=== PATIENT | female | born 1990 | race Caucasian/White ===

== ENCOUNTER → 2018-12-21 17:03 | Outpatient (CLI) | payer OTHER, SELFPAY ==
[2018-12-21 19:05] LABS: Chlamydia Trachomatis by PCR Negative (Negative); Neisserai gonorrhoeae by PCR Negative (Negative); Probe Check PASS; Sample Adequacy Control PASS; Specimen Processing Control PASS
== END ==
PROVIDERS: Referring Provider Advanced Practice Midwife; Visit Provider Advanced Practice Midwife
DX: Z11.3 Encounter for screening for infections with a predominantly sexual mode of transmission (principal)
CPT/HCPCS: 87491; 87591

== ENCOUNTER → 2018-12-26 14:56 | Outpatient (CLI) | payer OTHER, SELFPAY ==
[2018-12-26 16:20] LABS: hCG Titer Quant., Serum 676 mIU/mL (1-3)
== END ==
PROVIDERS: PCP Advanced Practice Midwife; Visit Provider Obstetrics & Gynecology
DX: O20.0 Threatened abortion (principal)
CPT/HCPCS: 36415; 84702

== ENCOUNTER → 2018-12-28 16:12 | Outpatient (CLI) | payer OTHER, SELFPAY ==
[2018-12-28 17:17] LABS: hCG Titer Quant., Serum 292 mIU/mL (1-3)
== END ==
PROVIDERS: PCP Advanced Practice Midwife; Visit Provider Advanced Practice Midwife
DX: O20.0 Threatened abortion (principal)
CPT/HCPCS: 36415; 84702

== ENCOUNTER → 2018-12-30 15:42 | Outpatient (CLI) | payer OTHER, SELFPAY ==
[2018-12-30 17:34] LABS: hCG Titer Quant., Serum 65 mIU/mL (1-3)
== END ==
PROVIDERS: PCP Advanced Practice Midwife; Visit Provider Obstetrics & Gynecology
DX: O20.0 Threatened abortion (principal); Z3A.00 Weeks of gestation of pregnancy not specified
CPT/HCPCS: 36415; 84702

== ENCOUNTER → 2019-08-10 | Outpatient (CLI) | payer OTHER, SELFPAY ==
[2019-08-10 13:46] LABS: Progesterone Level 3.29 ng/mL (See Comment)
== END | disposition home or self-care (01) ==
LOC: WOBLAB 09:44
PROVIDERS: Visit Provider Obstetrics & Gynecology
DX: N91.2 Amenorrhea, unspecified (principal)
CPT/HCPCS: 36415; 84144

== ENCOUNTER → 2019-09-05 | Outpatient (CLI) | payer OTHER, SELFPAY ==
[2019-09-05 16:18] LABS: Progesterone Level 18.91 ng/mL (See Comment)
[2019-09-05 17:17] LABS: Chlamydia Trachomatis by PCR Negative (Negative); Neisserai gonorrhoeae by PCR Negative (Negative); Probe Check PASS; Sample Adequacy Control PASS; Specimen Processing Control PASS
== END | disposition home or self-care (01) ==
LOC: WOBLAB 13:54
PROVIDERS: Visit Provider Obstetrics & Gynecology
DX: O20.0 Threatened abortion (principal)
CPT/HCPCS: 36415; 84144; 87491; 87591

== ENCOUNTER → 2019-09-20 | Outpatient (CLI) | payer OTHER, SELFPAY ==
[2019-09-20 17:31] LABS: Absolute Lymphocyte Count 1.87 X10^3/uL (0.83-4.51); Absolute Neutrophil Count 7.7 X10^3/uL (2.0-7.7); Basophil# 0.04 X10^3/uL; Basophil% 0.4 % (0-1); Eosinophil# 0.04 X10^3/uL; Eosinophils% 0.4 % (0-5); Hematocrit 38.3 % (37-47); Hemoglobin 13.2 g/dL (12.0-15.0); Lymphocyte # 1.87 X10^3/ul (4.0); Lymphocyte % 17.9 % (19-41); Mean Corp Hgb Conc 34.5 g/dL (32-36); Mean Corpuscular Hgb 30.3 pg (27.0-32.0); Mean Platelet Vol. 10.7 fl (6.2-12.0); Monocyte# 0.76 X10^3/uL; Monocyte% 7.3 % (0-10); NRBC Flagged by Analyzer 0 % (0-5); Neutrophil % 73.7 % (47-70); Platelet Count 273 K/mm3 (150-450); RBC Distribution Width CV 11.6 % (11.6-14.6); RBC Distribution Width SD 37.3 fl (35.1-43.9); Red Blood Count 4.35 M/mm3 (4.2-5.4); White Blood Count 10.4 K/mm3 (4.4-11.0)
[2019-09-20 17:49] LABS: Color, Urine Yellow (Yellow); Glucose, Dipstick Normal (Normal); Ketone-Dipstick Negative (Negative); Leukocyte Esterase-Dipstick Negative /ul (Negative); Nitrite-Dipstick Negative (Negative); Occult Blood-Urine Negative /ul (Negative); Protein-Dipstick Negative (Negative); Specific Gravity, Urine 1.005 (1.002-1.030); Urine Bilirubin Dipstick Negative (Negative); Urine Clarity Clear (Clear); Urine Urobilinogen Normal (Normal)
[2019-09-20 18:07] LABS: Thyroid Stim Hormone (TSH) 1.56 uIU/mL (0.358-3.74)
[2019-09-20 18:11] LABS: Amphetamine Urine VISTA NEGATIVE (<1000 ng/mL); Barbiturate Urine VISTA NEGATIVE (< 200 ng/mL); Benzodiazepine Urine VISTA NEGATIVE (< 200 ng/mL); Cocaine Urine VISTA NEGATIVE (< 300 ng/mL); Ecstacy Urine VISTA NEGATIVE (< 500 ng/mL); Methadone Urine VISTA NEGATIVE (< 300 ng/mL); PCP Urine VISTA NEGATIVE (< 25 ng/mL); THC Urine VISTA NEGATIVE (< 50 ng/mL); Vista UDS pH Range 6
[2019-09-21 08:58] LABS: HIV - WCH Non-Reactive (Nonreactive); Hepatitis B Surface Antigen Non-Reactive (Nonreactive); Hepatitis C Antibody Non-Reactive (Nonreactive); Rubella IgG 434.6 IU/mL
[2019-09-21 11:06] LABS: Prenatal RPR NONREACTIVE (NONREACTIVE)
== END | disposition home or self-care (01) ==
LOC: WOBLAB 15:34
PROVIDERS: Visit Provider Obstetrics & Gynecology
DX: Z34.81 Encounter for supervision of other normal pregnancy, first trimester (principal)
CPT/HCPCS: 36415; 80307; 81002; 84443; 85025; 86703; 86762; 86803; 87340

== ENCOUNTER → 2020-01-09 16:10 | Outpatient (CLI) | payer OTHER, SELFPAY ==
[2020-01-09 17:35] LABS: Hematocrit 39.6 % (37-47); Hemoglobin 12.9 g/dL (12.0-15.0); Mean Corp Hgb Conc 32.6 g/dL (32-36); Mean Corpuscular Volume 92.1 fL (81-99); Mean Platelet Vol. 10.6 fl (6.2-12.0); Platelet Count 240 K/mm3 (150-450); RBC Distribution Width CV 12.5 % (11.6-14.6); RBC Distribution Width SD 42.6 fl (35.1-43.9); White Blood Count 10.6 K/mm3 (4.4-11.0)
[2020-01-09 17:43] LABS: Glucose Challenge Gest 1H 50g 153 mg/dL (70-140)
== END ==
PROVIDERS: Visit Provider Obstetrics & Gynecology
DX: Z34.82 Encounter for supervision of other normal pregnancy, second trimester (principal)
CPT/HCPCS: 36415; 82950; 85027

== ENCOUNTER → 2020-01-15 09:27 | Outpatient (CLI) | payer OTHER, SELFPAY ==
[2020-01-15 11:23] LABS: Glucose GTT-Gestation. Fasting 65 mg/dL (<105)
[2020-01-15 11:52] LABS: Glucose GTT-Gestational 1 Hr 192 mg/dL (<190)
[2020-01-15 14:23] LABS: Glucose GTT-Gestational 2 Hr 175 mg/dL (<165)
[2020-01-15 14:34] LABS: Glucose GTT-Gestational 3 Hr 126 L (<145)
== END ==
PROVIDERS: Referring Provider Student in an Organized Health Care Education/Training Program; Visit Provider Student in an Organized Health Care Education/Training Program
DX: Z34.82 Encounter for supervision of other normal pregnancy, second trimester (principal)
CPT/HCPCS: 36415; 82951; 82952

== ENCOUNTER 2020-01-30 09:30 | Outpatient (RCR) | payer OTHER, SELFPAY | END 2020-02-08 23:59 | LOC: DC 09:30 | PROVIDERS: Visit Provider Student in an Organized Health Care Education/Training Program | DX: Z71.3 Dietary counseling and surveillance (principal); O24.419 Gestational diabetes mellitus in pregnancy, unspecified control; Z3A.00 Weeks of gestation of pregnancy not specified | CPT/HCPCS: 97802; G0108 ==

== ENCOUNTER 2020-02-12 11:54 | Outpatient (RCR) | payer OTHER, SELFPAY | END 2020-02-12 23:59 | disposition home or self-care (01) | LOC: DC 11:54 | PROVIDERS: Visit Provider Student in an Organized Health Care Education/Training Program | DX: O24.419 Gestational diabetes mellitus in pregnancy, unspecified control (principal); Z3A.00 Weeks of gestation of pregnancy not specified ==

== ENCOUNTER → 2020-04-02 | Outpatient (CLI) | payer OTHER, SELFPAY | END | disposition home or self-care (01) | LOC: LABSPEC 10:31 | PROVIDERS: Visit Provider Obstetrics & Gynecology | DX: Z36.85 Encounter for antenatal screening for Streptococcus B (principal) | CPT/HCPCS: 36415; 87081 ==

== ENCOUNTER → 2020-04-19 15:38 | Outpatient (CLI) | payer OTHER, SELFPAY | PROVIDERS: Referring Provider Student in an Organized Health Care Education/Training Program; Visit Provider Student in an Organized Health Care Education/Training Program | DX: Z03.818 Encounter for observation for suspected exposure to other biological agents ruled out (principal) | CPT/HCPCS: 87635; C9803; U0002 ==

== ENCOUNTER 2020-04-20 06:15 | Inpatient (IN) | payer OTHER, SELFPAY ==
[2020-04-20] VITALS (43 sets, daily range): BP systolic 108–143; BP diastolic 59–91; PULSE 69–127; RESP 16; TEMP 36.1–37.4; O2SAT 98–100; BMI 25.2
--- NOTE | 2020-04-20 04:45 | PCM.PN.OB ---
Subjective: Triage Visit 29-year-old at 39 weeks / 0 days presenting with contractions that started last evening. Denies leaking of fluid, vaginal bleeding. Reports movement. Denies headache, vision changes, chest pain, shortness of breath, nausea/vomiting, diarrhea. complicated by: GDM A1 which is well controlled, growth AGA. OB history: G1 SAB, G2: current Medical history: Denies, GDM A1 Surgical history: [place] teeth extraction 2016 Social: Denies tobacco alcohol and drug use Medications: vitamin Physical exam: Vital Signs Pulse BP 04/20/20 03:48 88 133/84 H General: Comfortable, in no acute distress Cardiorespiratory: No increased effort Abdomen: Soft, nontender, gravid Extremity: No edema Cervical exam: 1 cm per nursing heart rate: 135/moderate variability/+ accelerations/no decelerations [place]: Irregular A/P: 29-year-old G2, P0 at 39 weeks presenting with contractions. Rule out labor. If patient is unchanged we will plan to discharge home. Labor precautions provided. Patient has a visit in the office early this week and induction planned for next Wednesday. All questions answered with patient and her at bedside. - Physical Exam Vitals/I&O's: Vital Signs Pulse BP 88 133/84 H 04/20/20 03:48 04/20/20 03:48 Weight: 62.596 kg Body Mass Index (BMI) 25.2
[2020-04-20] MEDS: Lactated Ringers 1,000 ML 50 ML IV (06:55)
[2020-04-20] MEDS: Lactated Ringers 500 ML 999 ML IV ×2 (07:00→14:19)
[2020-04-20 07:06] LABS: Absolute Lymphocyte Count 1.48 X10^3/uL (0.83-4.51); Absolute Neutrophil Count 10.9 X10^3/uL (2.0-7.7); Basophil# 0.03 X10^3/uL; Basophil% 0.2 % (0-1); Eosinophil# 0.01 X10^3/uL; Eosinophils% 0.1 % (0-5); Hematocrit 40.6 % (37-47); Hemoglobin 13.9 g/dL (12.0-15.0); Lymphocyte # 1.48 X10^3/ul (4.0); Lymphocyte % 11.2 % (19-41); Mean Corp Hgb Conc 34.2 g/dL (32-36); Mean Corpuscular Hgb 31.2 pg (27.0-32.0); Mean Platelet Vol. 11.2 fl (6.2-12.0); Monocyte# 0.76 X10^3/uL; Monocyte% 5.7 % (0-10); NRBC Flagged by Analyzer 0 % (0-5); Neutrophil # 10.94 X10^3/uL (2.7-7.7); Neutrophil % 82.4 % (47-70); Platelet Count 194 K/mm3 (150-450); RBC Distribution Width CV 12.5 % (11.6-14.6); RBC Distribution Width SD 41.1 fl (35.1-43.9); Red Blood Count 4.46 M/mm3 (4.2-5.4); White Blood Count 13.3 K/mm3 (4.4-11.0)
[2020-04-20 07:40] LABS: Bedside Glucose 72 mg/dL (70-110)
[2020-04-20] MEDS: fentaNYL-bupivacaine (epidural) 100 ML BAG EPIDURAL ×2 (08:06→12:42)
[2020-04-20 08:46] LABS: Bedside Glucose 66 mg/dL (70-110)
[2020-04-20] MEDS: Lactated Ringers 1,000 ML 200 ML IV ×2 (11:56→16:25)
[2020-04-20] MEDS: Oxytocin 30 units/NS 500 ml 30 UNITS/500 ML IV.SOLN IV (12:27)
[2020-04-20 12:41] LABS: Bedside Glucose 70 mg/dL (70-110)
[2020-04-20 14:36] LABS: Bedside Glucose 78 mg/dL (70-110)
[2020-04-20 15:46] LABS: Bedside Glucose 81 mg/dL (70-110)
[2020-04-20] MEDS: Oxytocin 30 units/NS 500 ml 30 UNITS/500 ML IV.SOLN 334 UNITS IV (17:05)
[2020-04-20 17:11] LABS: Bedside Glucose 92 mg/dL (70-110)
--- NOTE | 2020-04-20 17:25 | PCM.HPOB.BLA ---
History and Physical Date of Admission: 04/20/20 HPI: 29-year-old G2, P0 at 39/2 weeks, [place] 04/25/20 by lmp, admitted for labor. Reports contractions. Denies leaking of fluid, reports good movement. This is complicated by: GDM A1 well-controlled Obstetrical History G1: SAB G2: Current Past Medical History Denies Medications PNV Past Surgical History [place] tooth extraction Social History Tobacco use: Denies Alcohol use: Denies Illicit drug use: Denies Labs Blood type: O pos Rubella: neg Hep B/C: neg/neg HIV: neg RPR: nonreactive GBS: neg Allergies NKDA Review of Systems General: alert and oriented HEENT: _denies change of vision Heart/lungs: _denies CP, SOB GI: _denies nausea, vomiting, dysuria, diarrhea MSK: _denies calf pain, tenderness Physical Exam Vital Signs Temp Pulse BP Pulse Ox 04/20/20 17:20 110 H 123/72 H 04/20/20 16:24 86 134/83 H 04/20/20 16:18 102 H 100 04/20/20 15:25 98.3 F 88 135/81 H 100 04/20/20 14:06 98.8 F 123 H 138/84 H 04/20/20 13:31 83 100 04/20/20 13:30 98.3 F 78 135/91 H 04/20/20 11:58 97.8 F 81 127/64 H 100 04/20/20 11:10 98.8 F 87 134/68 H 99 04/20/20 10:06 98.8 F 117 H 114/73 99 04/20/20 09:36 101 H 126/75 H 04/20/20 09:06 95 119/69 04/20/20 08:35 82 112/59 L 04/20/20 08:30 99.0 F 75 126/64 H 04/20/20 08:27 69 134/66 H 04/20/20 08:25 79 100 04/20/20 08:21 86 119/77 04/20/20 08:20 78 99 04/20/20 08:16 83 127/72 H 04/20/20 08:15 97 98 04/20/20 08:11 89 131/76 H 04/20/20 08:10 80 98 04/20/20 08:06 90 125/73 H 04/20/20 08:05 98 04/20/20 08:02 102 H 143/78 H 04/20/20 08:00 91 98 04/20/20 07:56 107 H 131/83 H 04/20/20 07:55 99 04/20/20 07:50 90 138/81 H 99 04/20/20 07:33 82 138/76 H 04/20/20 07:30 99.3 F H 99 General: a&o x3, NAD HEENT: normocephalic, atraumatic Cardio: no JVD Resp: no increased work in breathing Abdomen: soft, gravid, nontender Extremities: _minimal-moderate edema CE: 3 cm FHT: 135/mod kim/+accel/nod ecel [place]: irregular Labs Laboratory Results - last 24 hr 04/20/20 04/20/20 04/20/20 06:55 06:55 07:29 WBC 13.3 H RBC 4.46 Hgb 13.9 Hct 40.6 MCV 91.0 MCH 31.2 MCHC 34.2 RDW Std Deviation 41.1 RDW Coeff of Kim 12.5 Plt Count 194 MPV 11.2 Immature Gran % (Auto) 0.400 Neut % (Auto) 82.4 H Lymph % (Auto) 11.2 L [place] % (Auto) 5.7 Eos % (Auto) 0.1 Baso % (Auto) 0.2 Absolute Neuts (auto) 10.9 H Absolute Lymphs (auto) 1.48 Nucleated RBC % 0 POC Glucose 72 Blood Type O POSITIVE Antibody Screen NEGATIVE 04/20/20 04/20/20 04/20/20 08:27 12:32 14:25 WBC RBC Hgb Hct MCV MCH MCHC RDW Std Deviation RDW Coeff of Kim Plt Count MPV Immature Gran % (Auto) Neut % (Auto) Lymph % (Auto) [place] % (Auto) Eos % (Auto) Baso % (Auto) Absolute Neuts (auto) Absolute Lymphs (auto) Nucleated RBC % POC Glucose 66 L 70 78 Blood Type Antibody Screen 04/20/20 04/20/20 15:29 16:46 WBC RBC Hgb Hct MCV MCH MCHC RDW Std Deviation RDW Coeff of Kim Plt Count MPV Immature Gran % (Auto) Neut % (Auto) Lymph % (Auto) [place] % (Auto) Eos % (Auto) Baso % (Auto) Absolute Neuts (auto) Absolute Lymphs (auto) Nucleated RBC % POC Glucose 81 92 Blood Type Antibody Screen Assessment & Plan 29-year-old G2, P0 at 39/2 weeks, [place] 04/25/20 by lmp, admitted for labor. This is complicated by: GDM A1 well-controlled Admit to L&D - Routine labor orders -GDM A1: Routine blood glucose orders - GBS negative - CEFM - Anesthesia to see
--- NOTE | 2020-04-20 17:31 | PCM.OPRPT ---
Vaginal Delivery Maternal Presentation: Active Labor Amniotic Membrane Rupture Type: Spontaneous Amniotic Fluid Description: Clear Final [place]: 04/25/20 Gestational age: 39 Weeks and 2 Days Date of Procedure: 04/20/20 Pre-Operative Diagnosis: Hernandez intrauterine , GDMA1 Post-Operative Diagnosis: [place] intrauterine , GDMA1 Surgery/ Procedure Performed: Spontaneous Vaginal Delivery Type of Anesthesia: Epidural Description of Procedure: Spontaneous vaginal delivery viable female. Nuchal cord x1, loose, reduced. Baby to mom. Cord clamped and cut. Spontaneous delivery of placenta. First-degree perineal laceration repaired with in usual fashion, hemostatic. Bilateral outer labial abrasions, hemostatic without intervention. EBL 300 cc. A gender: Female (1 minute): 9 (5 minute): 9
[2020-04-20 18:30] LABS: Bedside Glucose 91 mg/dL (70-110)
--- NOTE | 2020-04-20 19:29 | NURSING ---
Epidural catheter removed. Blue tip intact.
[2020-04-20] MEDS: 0.9% Saline Lock 10 ML Syringe IV (20:30)
[2020-04-20] MEDS: Ibuprofen 600 MG Tablet PO (21:21)
[2020-04-21] MEDS: Acetaminophen 500 MG Tablet 1000 MG PO ×2 (00:06→10:55)
[2020-04-21 04:20] VITALS: BP 107/68; PULSE 70; RESP 18; TEMP 36.3
[2020-04-21] MEDS: Ibuprofen 600 MG Tablet PO ×3 (05:51→20:00)
[2020-04-21 06:00] LABS: Bedside Glucose 70 mg/dL (70-110)
[2020-04-21 07:45] VITALS: BP 117/71; PULSE 81; RESP 14; TEMP 36.2; O2SAT 97
--- NOTE | 2020-04-21 10:32 | PCM.PN.OB ---
Subjective: PPD1 Feeling well. Lochia minimal. . - Physical Exam Vitals/I&O's: Vital Signs Temp Pulse Resp BP Pulse Ox 97.2 F L 81 14 117/71 97 04/21/20 07:45 04/21/20 07:45 04/21/20 07:45 04/21/20 07:45 04/21/20 07:45 Oxygen Delivery Method Room Air Weight: 62.596 kg Body Mass Index (BMI) 25.2 Intake and Output for Last 24 Hours 04/19/20 04/20/20 04/22/20 23:59 23:59 00:59 Intake Total 4433.07 / 4433.07 Output Total 1300 / 1300 700 / 700 Balance 3133.07 / 3133.07 -700 / -700 General: Alert, Oriented x3, No apparent distress HEENT: Atraumatic, Normocephalic Neck: Supple Lungs: Normal air movement Cardiovascular: Regular rate Abdomen: Soft - uterus 2 cm below umbilicus Extremities: No edema Neurological: Cranial nerves II-XII grossly intact Psych/Mental Status: Normal Affect, Appropriate Laboratory Results 04/20/20 12:32: POC Glucose 70 04/20/20 14:25: POC Glucose 78 04/20/20 15:29: POC Glucose 81 04/20/20 16:46: POC Glucose 92 04/20/20 18:17: POC Glucose 91 04/21/20 05:56: POC Glucose 70 Current Medications Acetaminophen (Acetaminophen 500 Mg Tablet) 1,000 mg PO Q8H PRN PRN PRN Reason: Pain Score 1-3 Last Admin: 04/21/20 00:06 Dose: 1,000 mg Documented by: Bisacodyl (Bisacodyl 10 Mg Suppository) 10 mg RC UD PRN PRN Reason: If no BM Dextrose (Dextrose 50%-Water 25 Gm/50 Ml Disp.Syrin) 0 gm IV X1 PRN; Protocol PRN Reason: Hypoglycemia Dibucaine (Dibucaine 30 Gm Tube) 1 applic TOPICAL TID PRN PRN; Protocol PRN Reason: Discomfort Glucagon (Glucagon 1 Mg/Ml Syringe) 1 mg IM .X1 PRN PRN Reason: Hypoglycemia Hydrocortisone (Hydrocortisone 2.5% Crm) 1 applic TOPICAL TID PRN PRN; Protocol PRN Reason: Discomfort Ibuprofen (Ibuprofen 600 Mg Tablet) 600 mg PO Q6H PRN PRN PRN Reason: Pain Score 1-3 Last Admin: 04/21/20 05:51 Dose: 600 mg Documented by: Ondansetron HCl (Ondansetron 4 Mg/2 Ml Vial) 4 mg IV Q4H PRN PRN PRN Reason: Nausea Senna/Docusate Sodium (Senna/Docusate Sodium 1 Tablet) 1 - 2 tablet PO DAILY PRN PRN PRN Reason: Constipation Simethicone (Simethicone 80 Mg Tablet) 80 mg PO PCHS PRN PRN Reason: Indigestion/Stomach pain Sodium Chloride (0.9% Saline Lock 10 Ml Syringe) 5 - 15 ml IV UD PRN PRN Reason: SALINE FLUSH Last Admin: 04/20/20 20:30 Dose: 10 ml Documented by: Zolpidem Tartrate (Zolpidem Tartrate 5 Mg Tablet) 5 mg PO QHS PRN PRN PRN Reason: Insomnia Medical Necessity - Tobacco Use Smoking Status: Never smoker Assessment/Plan PPD#1 s/p . Complicated by GDMA1 - glucose this morning 70. . Home tomorrow.
--- NOTE | 2020-04-21 10:41 | DCINST_ITS ---
Discharge Diet: No Restrictions Discharge Activity: Return to Normal Activity, No Restrictions, May Shower May resume sexual activity in: 4-6 weeks Weight Bearing Status: Weight bearing as tolerated Call your doctor if you observe: Fever of 101 or Higher, Inability to urinate, Inability to have a bowel movement, Using more than one pad per hour, Shortness of breath, Calf discomfort Additional Instructions: If you experience any of the following, contact your healthcare provider. * Bleeding that soaks a pad every hour for 2 hours * Fever 100.4 or higher * Unrelieved incision or abdominal pain * Swelling, redness, discharge or bleeding from your incision or episiotomy site * Your incision begins to separate * Problems urinating (including inability to urinate or burning while urinating). * Visual changes * Severe headache * Flu-like symptoms * Pain or redness in one of both of your breasts * Pain, warmth, tenderness or swelling in your legs, especially the calf area * Frequent nausea and vomiting * Symptoms of depression or anxiety If you experience any of the following, call 911 or go to the nearest Emergency Room. * Chest pain * Problems breathing * Seizure activity * Partial or complete paralysis of a body part, slurred speech, weakness or drooping of the face, or a sudden inability to walk or hold your balance Allergies/Adverse Reactions: Allergies No Known Allergies Allergy (Verified 04/20/20 03:51) Medications to take at Discharge Prenatabs FA 1 tab PO DAILY 04/20/20 Please Follow Up With: Roz Lees DO When: 2 week telehealth visit, 6 week Primary Care Physician: Care Physician,No Primary [Primary Care Provider] - Test Results: Test results from this visit will be discussed in further detail at your follow- up appointment, if applicable.
--- NOTE | 2020-04-21 10:41 | PCM.DCVAG ---
Discharge Diet: No Restrictions Discharge Activity: Return to Normal Activity, No Restrictions, May Shower May resume sexual activity in: 4-6 weeks Weight Bearing Status: Weight bearing as tolerated Call your doctor if you observe: Fever of 101 or Higher, Inability to urinate, Inability to have a bowel movement, Using more than one pad per hour, Shortness of breath, Calf discomfort Additional Instructions: If you experience any of the following, contact your healthcare provider. Bleeding that soaks a pad every hour for 2 hours Fever 100.4 or higher Unrelieved incision or abdominal pain Swelling, redness, discharge or bleeding from your incision or episiotomy site Your incision begins to separate Problems urinating (including inability to urinate or burning while urinating). Visual changes Severe headache Flu-like symptoms Pain or redness in one of both of your breasts Pain, warmth, tenderness or swelling in your legs, especially the calf area Frequent nausea and vomiting Symptoms of depression or anxiety If you experience any of the following, call 911 or go to the nearest Emergency Room. Chest pain Problems breathing Seizure activity Partial or complete paralysis of a body part, slurred speech, weakness or drooping of the face, or a sudden inability to walk or hold your balance Allergies/Adverse Reactions: Allergies No Known Allergies Allergy (Verified 04/20/20 03:51) Medications to take at Discharge Prenatabs FA 1 tab PO DAILY 04/20/20 Please Follow Up With: Roz Lees DO When: 2 week telehealth visit, 6 week Primary Care Physician: Care Physician,No Primary [Primary Care Provider] - Test Results: Test results from this visit will be discussed in further detail at your follow-up appointment, if applicable.
[2020-04-21] MEDS: Senna/Docusate Sodium 1 Tablet PO (10:55)
[2020-04-21 12:00] VITALS: BP 101/69; PULSE 92; RESP 14; TEMP 36.1; O2SAT 96
[2020-04-21 19:57] VITALS: BP 112/70; PULSE 81; RESP 16; TEMP 36.4; O2SAT 97
[2020-04-22 02:41] VITALS: BP 116/53; PULSE 97; RESP 16; TEMP 36.1
[2020-04-22] MEDS: Acetaminophen 500 MG Tablet 1000 MG PO (06:05)
--- NOTE | 2020-04-22 07:16 | PCM.PN.OB ---
Subjective: PPD#2 Feeling well. Sore when up walking, but feels well sitting. Controlled with motrin/tylenol. going well. - Physical Exam Vitals/I&O's: Vital Signs Temp Pulse Resp BP Pulse Ox 97 F L 97 16 116/53 L 97 04/22/20 02:41 04/22/20 02:41 04/22/20 02:41 04/22/20 02:41 04/21/20 19:57 Oxygen Delivery Method Room Air Weight: 62.596 kg Body Mass Index (BMI) 25.2 Intake and Output for Last 24 Hours 04/20/20 04/21/20 04/22/20 22:59 23:59 23:59 Intake Total Output Total Balance General: Alert, Oriented x3, No apparent distress HEENT: Atraumatic, PERRLA, Normocephalic Neck: Supple Cardiovascular: Regular rate Abdomen: Soft, Non Tender - uterus 2 cm below umbilicus Extremities: No edema Neurological: Cranial nerves II-XII grossly intact Psych/Mental Status: Normal Affect, Appropriate Current Medications Acetaminophen (Acetaminophen 500 Mg Tablet) 1,000 mg PO Q8H PRN PRN PRN Reason: Pain Score 1-3 Last Admin: 04/22/20 06:05 Dose: 1,000 mg Documented by: Bisacodyl (Bisacodyl 10 Mg Suppository) 10 mg RC UD PRN PRN Reason: If no BM Dextrose (Dextrose 50%-Water 25 Gm/50 Ml Disp.Syrin) 0 gm IV X1 PRN; Protocol PRN Reason: Hypoglycemia Dibucaine (Dibucaine 30 Gm Tube) 1 applic TOPICAL TID PRN PRN; Protocol PRN Reason: Discomfort Glucagon (Glucagon 1 Mg/Ml Syringe) 1 mg IM .X1 PRN PRN Reason: Hypoglycemia Hydrocortisone (Hydrocortisone 2.5% Crm) 1 applic TOPICAL TID PRN PRN; Protocol PRN Reason: Discomfort Ibuprofen (Ibuprofen 600 Mg Tablet) 600 mg PO Q6H PRN PRN PRN Reason: Pain Score 1-3 Last Admin: 04/21/20 20:00 Dose: 600 mg Documented by: Ondansetron HCl (Ondansetron 4 Mg/2 Ml Vial) 4 mg IV Q4H PRN PRN PRN Reason: Nausea Senna/Docusate Sodium (Senna/Docusate Sodium 1 Tablet) 1 - 2 tablet PO DAILY PRN PRN PRN Reason: Constipation Last Admin: 04/21/20 10:55 Dose: 2 tablet Documented by: Simethicone (Simethicone 80 Mg Tablet) 80 mg PO PCHS PRN PRN Reason: Indigestion/Stomach pain Sodium Chloride (0.9% Saline Lock 10 Ml Syringe) 5 - 15 ml IV UD PRN PRN Reason: SALINE FLUSH Last Admin: 04/20/20 20:30 Dose: 10 ml Documented by: Zolpidem Tartrate (Zolpidem Tartrate 5 Mg Tablet) 5 mg PO QHS PRN PRN PRN Reason: Insomnia Medical Necessity - Tobacco Use Smoking Status: Never smoker Assessment/Plan 29 yo PPD1 s/p . Complicated by GDMA1. Home today.
[2020-04-22 07:45] VITALS: BP 108/56; PULSE 75; RESP 18; TEMP 36.1; O2SAT 95
== END 2020-04-22 11:45 | disposition home or self-care (01) | DRG 807 ==
LOC: WPOUT 06:26 → WP 06:26
PROVIDERS: Admitting Provider Student in an Organized Health Care Education/Training Program; Referring Provider Student in an Organized Health Care Education/Training Program; Visit Provider Student in an Organized Health Care Education/Training Program
DX: O24.420 Gestational diabetes mellitus in childbirth, diet controlled (principal); Z37.0 Single live birth; O69.81X0 Labor and delivery complicated by cord around neck, without compression, not applicable or unspecified; O70.0 First degree perineal laceration during delivery; Z3A.39 39 weeks gestation of pregnancy
CPT/HCPCS: 59025; 59050; 82962; 85025; 86850; 86900; 86901; 99218; J7120; A4216; G0378

== ENCOUNTER → 2020-04-24 09:04 | Outpatient (CLI) | payer OTHER, SELFPAY ==
[2020-04-20 03:51] VITALS: BMI 25.2
== END ==
PROVIDERS: Referring Provider Student in an Organized Health Care Education/Training Program; Visit Provider Student in an Organized Health Care Education/Training Program
DX: O92.79 Other disorders of lactation (principal)
CPT/HCPCS: 96158

== ENCOUNTER → 2020-04-28 09:00 | Outpatient (CLI) | payer OTHER, SELFPAY ==
[2020-04-20 03:51] VITALS: BMI 25.2
== END ==
PROVIDERS: Referring Provider Student in an Organized Health Care Education/Training Program; Visit Provider Student in an Organized Health Care Education/Training Program
DX: O92.79 Other disorders of lactation (principal)
CPT/HCPCS: 96158

== ENCOUNTER → 2020-06-10 06:40 | Outpatient (CLI) | payer OTHER, SELFPAY ==
[2020-04-20 03:51] VITALS: BMI 25.2
[2020-06-10 11:57] LABS: Glucose 2 Hour Postprandial 38 mg/dL (<140)
== END ==
PROVIDERS: Referring Provider Student in an Organized Health Care Education/Training Program; Visit Provider Student in an Organized Health Care Education/Training Program
DX: O24.439 Gestational diabetes mellitus in the puerperium, unspecified control (principal)
CPT/HCPCS: 36415; 82950

== ENCOUNTER → 2020-08-19 09:15 | Outpatient (CLI) | payer OTHER, SELFPAY ==
[2020-04-20 03:51] VITALS: BMI 25.2
== END ==
PROVIDERS: Referring Provider Student in an Organized Health Care Education/Training Program; Visit Provider Student in an Organized Health Care Education/Training Program
DX: Z39.1 Encounter for care and examination of lactating mother (principal)
CPT/HCPCS: 96158

== ENCOUNTER 2021-04-15 09:03 | Outpatient (CLI) | payer OTHER, SELFPAY ==
[2021-04-17 00:07] LABS: Chlamydia By Nucleic Acid AMP Negative (Negative)
[2021-04-17 16:31] LABS: Gonococcus By Nucleic Acid AMP Negative (Negative)
[2021-04-18 22:13] LABS: HPV APTIMA, High Risk Negative (Negative)
== END 2021-04-15 23:59 | disposition home or self-care (01) ==
LOC: LABSPEC 09:05
PROVIDERS: Visit Provider Obstetrics & Gynecology
DX: Z12.4 Encounter for screening for malignant neoplasm of cervix (principal); Z11.3 Encounter for screening for infections with a predominantly sexual mode of transmission
CPT/HCPCS: 87491; 87591; 87624; 88175; G0145

== ENCOUNTER 2021-05-01 08:41 | Outpatient (CLI) | payer OTHER, SELFPAY ==
[2021-05-01 10:30] LABS: Absolute Lymphocyte Count 1.67 X10^3/uL (0.83-4.51); Absolute Neutrophil Count 4.6 X10^3/uL (2.0-7.7); Basophil# 0.06 X10^3/uL; Basophil% 0.9 % (0-1); Eosinophil# 0.08 X10^3/uL; Eosinophils% 1.1 % (0-5); Hematocrit 43.9 % (37-47); Hemoglobin 15.4 g/dL (12.0-15.0); Lymphocyte # 1.67 X10^3/ul (0.83-4.51); Mean Corp Hgb Conc 35.1 g/dL (32-36); Mean Corpuscular Hgb 30.9 pg (27.0-32.0); Mean Corpuscular Volume 88.2 fL (81-99); Mean Platelet Vol. 10.8 fl (6.2-12.0); Monocyte# 0.56 X10^3/uL; NRBC Flagged by Analyzer 0 % (0-5); Neutrophil # 4.57 X10^3/uL (2.7-7.7); Neutrophil % 65.7 % (47-70); Platelet Count 235 K/mm3 (150-450); RBC Distribution Width CV 11.8 % (11.6-14.6); RBC Distribution Width SD 38.1 fl (35.1-43.9); Red Blood Count 4.98 M/mm3 (4.2-5.4)
[2021-05-01 11:05] LABS: Glucose Challenge Gest 1H 50g 69 mg/dL (70-140)
[2021-05-01 11:30] LABS: HIV - WCH Non-Reactive (Nonreactive); Hepatitis B Surface Antigen Non-Reactive (Nonreactive); Hepatitis C Antibody Non-Reactive (Nonreactive); Rubella IgG Reactive (Nonreactive); Syphilis Antibodies Non-reactive
== END 2021-05-01 23:59 | disposition home or self-care (01) ==
LOC: WOBLAB 08:42
PROVIDERS: Visit Provider Obstetrics & Gynecology
DX: Z34.81 Encounter for supervision of other normal pregnancy, first trimester (principal)
CPT/HCPCS: 36415; 82950; 85025; 86703; 86762; 86780; 86803; 87086; 87340

== ENCOUNTER 2021-05-19 23:13 | Observation (INO) | payer OTHER, SELFPAY ==
[2021-05-19 23:14] VITALS: BP 132/93; PULSE 104; RESP 16; TEMP 35.9; O2SAT 100; BMI 21.5
[2021-05-20] VITALS (15 sets, daily range): BP systolic 81–143; BP diastolic 38–80; PULSE 76–132; RESP 16–18; TEMP 36.2–37.3; O2SAT 96–100; BMI 21.5
[2021-05-20 00:07] LABS: Absolute Lymphocyte Count 3.16 X10^3/uL (0.83-4.51); Basophil# 0.05 X10^3/uL; Basophil% 0.5 % (0-1); Eosinophil# 0.12 X10^3/uL; Eosinophils% 1.2 % (0-5); Hematocrit 35.2 % (37-47); Hemoglobin 12.2 g/dL (12.0-15.0); Lymphocyte # 3.16 X10^3/ul (0.83-4.51); Lymphocyte % 31.1 % (19-41); Mean Corp Hgb Conc 34.7 g/dL (32-36); Mean Corpuscular Volume 86.7 fL (81-99); Monocyte# 0.75 X10^3/uL; Monocyte% 7.4 % (0-10); NRBC Flagged by Analyzer 0 % (0-5); Neutrophil # 6.03 X10^3/uL (2.7-7.7); Neutrophil % 59.3 % (47-70); Platelet Count 238 K/mm3 (150-450); RBC Distribution Width CV 11.7 % (11.6-14.6); RBC Distribution Width SD 37.3 fl (35.1-43.9); Red Blood Count 4.06 M/mm3 (4.2-5.4); White Blood Count 10.2 K/mm3 (4.4-11.0)
[2021-05-20 00:20] LABS: Anion Gap 6 (5-15); BUN 14 mg/dL (7-18); BUN/Creat Ratio 19.3 RATIO (10-20); Calcium,Total 8.7 mg/dL (8.5-10.1); Chloride 103 mmol/L (98-107); Creatinine, Serum 0.72 mg/dL (0.55-1.02); EST Glomerular Filtration Rate 101 mL/min (>60); Est Glom Filt Rate - Afr Amer 123 mL/min (>60); Glucose 111 mg/dL (74-106); Potassium 3.4 mmol/L (3.5-5.1); Sodium Level 135 mmol/L (136-145)
[2021-05-20] MEDS: 0.9% Normal Saline 1,000 ML 999 ML IV ×3 (00:25→03:35)
--- NOTE | 2021-05-20 00:36 | EDS_ITS ---
HPI HPI - Female History of Present Illness Chief Complaint: Vag Bld, Preg Narrative Narrative: Patient is a G3, P1 female with 2 spontaneous miscarriages. She is approximately 11 weeks on her third . She states that she developed some bleeding and went today and saw her MORTGAGE CLERK because of this. An ultrasound was performed in the office and shows no heart tone. She was informed that she is in the process of miscarrying and that throughout the next 1 to 2 days she should have increased abdominal cramping as well as passage of blood and clots. Patient denies any history of bleeding disorder or blood thinner use. She states that as time is past she is noticed increased bleeding and clotting as directed by her OB but feels like it is more severe than it should be. She also reports that she went to the bathroom and had a syncopal event. Secondary to the syncopal event as well as the worsening bleeding she comes in for evaluation. PFSH PFSH Medical History no medical history Home Medications Prenatabs FA 1 tab PO DAILY 04/20/20 [History Last Taken 04/19/20] Allergy/AdvReac Type Severity Reaction Status Date / Time No Known Allergies Allergy Verified 05/19/21 23:14 Surgical History no surgical history Social History Smoking Status: Never smoker [facility] ED Constitutional Constitutional ED: Denies chills or fever(s) ENT ENT ED: Denies sore throat Cardiovascular Cardiovascular: Denies chest pain Respiratory/Chest Respiratory/Chest: Denies cough or dyspnea Gastrointestinal Gastrointestinal: Reports abdominal pain; Denies diarrhea, nausea or vomiting Genitourinary Genitourinary ED: Reports other Details: Positive vaginal bleeding ; Denies dysuria Musculoskeletal Musculoskeletal: Denies myalgias Integumentary Denies rash Neurologic Neurologic: Reports other Details: Positive syncope ; Denies headache(s) Hematologic/Lymphatic Hematologic/Lymphatic: Denies easy bleeding or easy bruising EXAM Physical Exam Const Vital Signs: 05/19/21 23:14 05/20/21 00:00 05/20/21 02:59 Temperature 96.7 F L Temperature Source Temporal Pulse Rate 104 H 112 H 125 H Respiratory Rate 16 Blood Pressure 132/93 H 94/66 104/57 L Blood Pressure Mean 106 75 72 Pulse Ox 100 Oxygen Delivery Method Room Air 05/20/21 03:36 05/20/21 03:43 Temperature 98 F Temperature Source Temporal Pulse Rate 121 H 121 H Respiratory Rate 16 Blood Pressure 98/63 98/63 Blood Pressure Mean 74 74 Pulse Ox 98 Oxygen Delivery Method Room Air Positive well nourished and well developed General Appearance ED: well developed HEENT Reports moist mucous membranes Eyes PERRL and EOMs intact bilaterally General Eye ED: Yes pale conjunctiva Neck supple Resp normal respiratory effort and clear to auscultation bilaterally Cardio regular rate and regular rhythm Jugular Venous Distention: other Other Details: Radial pulses are +2-4 bilaterally are equal and symmetric GI normal to inspection, nondistended, normoactive bowel sounds, soft to palpation, non-tender, non-distended and no masses Auscultation: normoactive bowel sounds Palpation: soft Narrative: Normal external genitalia. Speculum exam shows a vaginal vault that is full bright red blood. Once this blood is evacuated it quickly fills back up consistent with her report persistent vaginal bleeding. Extremity normal to inspection Neuro oriented x3 and CN's II-XII intact bilaterally Sensorium / Orientation: alert Motor Exam: strength 5/5 throughout Psych mental status grossly normal Skin no rashes or lesions noted MDM MDM MDM Narrative Medical decision making narrative: Patient presented to the ER with vaginal bleeding consistent with her spontaneous miscarriage. She was mildly tachycardic but blood pressure was maintaining stable. However she reported a bout of syncope at home most consistent with orthostasis and therefore I elected to check basic laboratory studies to ensure she did not need a blood transfusion. I did not feel the need for an ultrasound as patient states she had one earlier in the day. Blood work revealed a stable hemoglobin of 12.2 but chart review reveals her previous value at the end of April was 15.4 indicating a three-point drop. The patient was stood up and had a near syncopal event. She was then given 2 L of fluid and attempted to stand once more and again had a near syncopal event. Therefore at this time with her persistent vaginal bleeding and persistent orthostasis MORTGAGE CLERK was contacted. They agree that she will need to undergo a D&C secondary to her symptoms and therefore patient will be admitted at this time Lab Data Attestation: I reviewed the patient's lab results. Labs: Laboratory Results - last 24 hr 05/19/21 05/19/21 05/19/21 00:00 00:00 00:00 WBC 10.2 RBC 4.06 L Hgb 12.2 Hct 35.2 L MCV 86.7 MCH 30.0 MCHC 34.7 RDW Std Deviation 37.3 RDW Coeff of Kim 11.7 Plt Count 238 MPV 10.0 Immature Gran % (Auto) 0.500 Neut % (Auto) 59.3 Lymph % (Auto) 31.1 [place] % (Auto) 7.4 Eos % (Auto) 1.2 Baso % (Auto) 0.5 Absolute Neuts (auto) 6.0 Absolute Lymphs (auto) 3.16 Nucleated RBC % 0 PT 14.1 INR 1.2 APTT 26.3 Sodium 135 L Potassium 3.4 L Chloride 103 Carbon Dioxide 26.0 Anion Gap 6 BUN 14 Creatinine 0.72 Estim Creat Clear Calc 92.00 Est GFR (MDRD) Af Amer 123 Est GFR (MDRD) Non-Af 101 BUN/Creatinine Ratio 19.3 Glucose 111 H Calcium 8.7 Discharge Plan Triage Chief Complaint: Vag Bld, Preg ED Provider: Rommel Olivera Dx/Rx/DC Orders Clinical Impression: Spontaneous miscarriage, Abnormal vaginal bleeding, Orthostatic syncope Primary Care Provider: Kam Lees Disposition Disposition: Acute Care [facility]
[2021-05-20 00:37] LABS: International Normalized Ratio 1.2; Prothrombin Time (Protime)PT. 14.1 SECONDS (11.7-14.9)
[2021-05-20 00:38] LABS: Partial Thromboplast Time 26.3 Seconds (24.1-36.2)
--- NOTE | 2021-05-20 03:38 | EKG12_ITS ---
Test Reason : PRE OP Blood Pressure : / mmHG Vent. Rate : 108 BPM Atrial Rate : 108 BPM P-R Int : 122 ms QRS Dur : 074 ms QT Int : 328 ms P-R-T Axes : 083 078 032 degrees QTc Int : 439 ms Sinus tachycardia Otherwise normal ECG Confirmed by MARIA DEL CARMEN SAMANO, LORI ([id number]), fan mail editor ADY LAMAR ([id number]) on 05/21/2021 12:11:59 PM Referred By: Confirmed By:LORI JOYCE MD
--- NOTE | 2021-05-20 04:44 | HP.PCM.OB_ITS ---
History and Physical Date of Admission: 05/20/21 HPI 30-year-old presenting with syncope and acute vaginal bleeding. Patient diagnosed with missed today in office on ultrasound. Elected for expectant management at that time. Patient had some bleeding overnight, got up had large clots and had syncopal event in the bathroom. Then was taken to the emergency room. Patient feels okay lying flat, however is very dizzy and lightheaded, presyncopal with sitting up or standing. Reports she continues to have large amount of bleeding. Denies fevers or chills, chest pain or shortness of breath, nausea or vomiting, diarrhea or constipation. [employer] history G1 early SAB G2: Full-term , GDM A1 G3: Current Medical history: Denies Surgical history: [place] teeth extraction Family history: Noncontributory Social history: Denies tobacco, drug, alcohol use Medications: None Allergies: No known drug allergies Review of system: Negative otherwise stated as above Physical exam Vital signs: Blood pressure 101/64, pulse 76, respirations 16, temp 97.1 ?F, oxygen saturation 98% on room air General: In no acute distress, lying flat. Pale in appearance HEENT: Normocephalic/atraumatic, PERRLA Cardiac: Regular rate and rhythm, no murmurs rubs or gallops Respiratory: Clear to auscultation bilaterally Abdomen: Soft, nontender, nondistended Extremities: No edema Musculoskeletal: Strength 5 out of 5 throughout all extremities Neurologic: No focal deficits, cranial nerves II through XII grossly intact Lab findings WBC 10.2, hemoglobin/hematocrit 12.2/35.2, platelets 238 Covid test pending O+ Assessment/plan: 30-year-old G3, P1 with spontaneous , syncope, acute blood loss anemia. -Patient syncopal at home, continues to be pink syncopal in ER after 3 L of fluid. With continuous bleeding. Hemoglobin in April was 15, today 12. Anticipate this will be lower postoperatively. -Admit for surgical management of . Plan for suction dilation and curettage. Will get doxycycline 200 mg IV preoperatively -Declines any testing on uterine contents. Likely a mostly blood clot at this time. -Plan to admit for observation postoperatively. Repeat CBC. If patient's vitals are stable and she is able to ambulate, will discharge home later this afternoon/early evening. Assessment & Plan Assessment/Plan (1) Spontaneous miscarriage: (2) Abnormal vaginal bleeding:
--- NOTE | 2021-05-20 05:56 | PCM.OPRPT ---
Report of Operation Date of Procedure: 05/20/21 Pre-Operative Diagnosis: Spontaneous Post-Operative Diagnosis: Spontaneous Surgery/Procedure Performed:: Suction dilation and curettage Description of Surgical Findings:: Normal-appearing external genitalia. Large amount of blood clot in the event genital vault. Cervix dilated 1 cm. Type of Anesthesia: MAC Specimen's removed: Products of conception Estimated Blood Loss (mL): 100 cc Fluids Replaced: 150 cc Description of Procedure: Indication/risk/benefits: 22-year-old G3, P1 with spontaneous and active bleeding, syncope. Plan for suction dilation and curettage. All risk, benefits, alternatives were discussed with patient. Risks clipped are not limited to: Risk of bleeding to the point transfusion, infection, injury to surrounding tissue including bowel/bladder/uterine perforation, VTE, ICU admission. Patient were consented. Procedure: Patient taken to the operating room, MAC anesthesia induced. Patient placed in the dorsal lithotomy position and prepped and draped in the usual sterile fashion. Weighted speculum placed in posterior vagina and Valladares retractor used to visualize the cervix. Anterior lip of cervix grasped with Allis clamp. Cervix noted to be 1 cm dilated. Suction curettage completed in a 360 degree manner removing all products of conception and clot. Bleeding stopped. Allis clamp removed. Cervix hemostatic. Weighted speculum removed. At the end of the procedure all needle, lap, sponge counts were correct x2. Urine output: 150 cc Complications None
--- NOTE | 2021-05-20 06:30 | POC_PTH ---
PATIENT: ANANYA SOSA LOC: MS3 U#:[id number] AGE/SX: 30/F ROOM: MS315 RE05/20/[address]: Dr. Roz Lees DO : 1990 BED: 1 DIS: 05/20/2021 SPEC #: [id number] RECD: 05/20/21 11:07 STATUS: REYNALDO GRANDE #: [id number] LETICIA: 05/20/21 06:[address]: Roz Lees DEPT: SURGICAL PATHOLOGY RECD BY: Diane Arredondo ENTERED: 05/20/21 12:29 SP TYPE: PROD CONC OTHR DR: Dr. Kam Lees MD Tissues: Product of conception, NOS Procedures: Surgery Specimen Level IV HEADER OPERATION: Suction dilation and curettage PRE-OP DIAGNOSIS: Spontaneous TISSUE SUBMITTED: Products of conception MICROSCOPIC DIAGNOSIS Products of conception: [place], gestational endometrium and immature chorionic villi (products of conception). SJ:srikanth 05/21/2021 MICROSCOPIC DESCRIPTION Slides are reviewed. GROSS DESCRIPTION Received in fixative is one container labeled with the patient's name and designated products of conception. The specimen consists of multiple irregular fragments of light chavez soft tissue that in aggregate measure 7 x 5 x 0.8 cm. tissue is not identified. Rail [employer] Clerk tissue is submitted in one cassette. / AM:srikanth 05/20/2021 TC:5 CPT: 15574
[2021-05-20] MEDS: 0.9% Normal Saline 1,000 ML 150 ML IV (08:04)
[2021-05-20] MEDS: Acetaminophen 500 MG Tablet 1000 MG PO ×2 (08:07→13:00)
[2021-05-20 12:17] LABS: Absolute Lymphocyte Count 0.48 X10^3/uL (0.83-4.51); Absolute Neutrophil Count 7.8 X10^3/uL (2.0-7.7); Basophil# 0.01 X10^3/uL; Basophil% 0.1 % (0-1); Hematocrit 24.2 % (37-47); Hemoglobin 8.2 g/dL (12.0-15.0); Lymphocyte # 0.48 X10^3/ul (0.83-4.51); Lymphocyte % 5.7 % (19-41); Mean Corp Hgb Conc 33.9 g/dL (32-36); Mean Corpuscular Hgb 30.5 pg (27.0-32.0); Mean Platelet Vol. 10.3 fl (6.2-12.0); Monocyte# 0.05 X10^3/uL; Monocyte% 0.6 % (0-10); NRBC Flagged by Analyzer 0 % (0-5); POSITIVE DIFFERENTIAL YES; Platelet Count 195 K/mm3 (150-450); RBC Distribution Width CV 11.9 % (11.6-14.6); RBC Distribution Width SD 39.1 fl (35.1-43.9); Red Blood Count 2.69 M/mm3 (4.2-5.4); White Blood Count 8.4 K/mm3 (4.4-11.0)
[2021-05-20 12:18] LABS: Differential Indicated SCAN CRITERIA MET
--- NOTE | 2021-05-20 17:00 | CASEMGMT ---
Social Work Note DARYL reviewed chart. Pt with Spontaneous . Pt also delivered a baby last year at [facility] (04/20/2020-04/22/2020). SW in to speak with pt. SW introduced self and role at [facility]. SW asked pt how she is doing. Pt states that she is doing better than she was earlier. Pt states that she is hoping to discharge home today. SW asked pt about her baby she delivered last year. Pt states that currently the baby is with it's grandparents in a safe environment. SW offered to provide pt with resources or support groups and pt denied. Pt states that she is doing really well. Pt denied any Mental Health History and denied any depression. Pt denied additional needs or concerns at this time. 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
--- NOTE | 2021-05-20 17:25 | PCM.DC ---
Discharge Instructions Diet Discharge Diet: No restrictions Activity Discharge Activity: Return to Normal Activity, May Drive and May Shower May resume sexual activity in: 4-6 weeks Weight Bearing Status: Weight bearing as tolerated Dressing / Incision Call your doctor if your incision/area has: Continuous Slow Oozing and Foul Smelling Discharge Call your doctor if you observe: Fever of 101 or Higher, Shortness of breath and Chest pain Follow Up Care Please Follow Up With: Kam Lees MD When: 1 week Test Results: Test results from this visit will be discussed in further detail at your follow-up appointment, if applicable. Discharge Plan Admission Admit Date/Time: 05/20/21 06:03 Primary Reason for Your Visit: vaginal bleeding Attending Provider: Roz Lees Primary Care Provider: Kam Lees Discharge Orders/Prescriptions Prescriptions: New ferrous sulfate 325 mg (65 mg iron) tablet 325 mg PO DAILY Qty: 30 RF: 1 Continued Prenatabs FA 1 tab PO DAILY RF: 0 Referrals / Follow Up: Kam Lees MD [Primary Care Provider] - Disposition Discharge Orders: Discharge Patient (Routine); Ordered 05/20/21 Ordered By: Dr. Kam Lees
--- NOTE | 2021-05-20 17:25 | PCM.PN.OB ---
Subjective Subjective No complaints. Asymptomatic. Denies headache, visual changes, dizziness, chest pain, shortness of breath, weakness. Objective Data Objective Data Vital Signs: Vital Signs Temp Pulse Resp BP Pulse Ox 99.1 F 103 H 16 115/65 98 05/20/21 07:56 05/20/21 13:02 05/20/21 07:56 05/20/21 13:02 05/20/21 10:46 Oxygen Flow Rate (L/min) 3 Oxygen Delivery Method Room Air Weight: 118 lb Body Mass Index (BMI) 21.5 Intake & Output: Intake and Output for Last 24 Hours 05/18/21 05/19/21 05/20/21 23:59 23:59 23:59 Intake Total 4870 / 4870 Output Total 150 / 150 Balance 4720 / 4720 Lab / Micro Data Result Diagrams: 05/20/21 12:03 05/19/21 00:00 Labs: Laboratory Results - last 24 hr 05/19/21 00:00: PT 14.1, INR 1.2, APTT 26.3 05/19/21 00:00: WBC 10.2, RBC 4.06 L, Hgb 12.2, Hct 35.2 L, MCV 86.7, MCH 30.0, MCHC 34.7, RDW Std Deviation 37.3, RDW Coeff of Kim 11.7, Plt Count 238, MPV 10.0, Immature Gran % (Auto) 0.500, Neut % (Auto) 59.3, Lymph % (Auto) 31.1, Cannon % (Auto) 7.4, Eos % (Auto) 1.2, Baso % (Auto) 0.5, Absolute Neuts (auto) 6.0, Absolute Lymphs (auto) 3.16, Nucleated RBC % 0 05/19/21 00:00: Sodium 135 L, Potassium 3.4 L, Chloride 103, Carbon Dioxide 26.0, Anion Gap 6, BUN 14, Creatinine 0.72, Estim Creat Clear Calc 92.00, Est GFR (MDRD) Af Amer 123, Est GFR (MDRD) Non-Af 101, BUN/Creatinine Ratio 19.3, Glucose 111 H, Calcium 8.7 05/19/21 23:52: Blood Type O POSITIVE, Antibody Screen NEGATIVE 05/20/21 12:03: WBC 8.4, RBC 2.69 L, Hgb 8.2 L, Hct 24.2 L, MCV 90.0, MCH 30.5, MCHC 33.9, RDW Std Deviation 39.1, RDW Coeff of Kim 11.9, Plt Count 195, MPV 10.3, Immature Gran % (Auto) 0.600, Neut % (Auto) 93.0 H, Lymph % (Auto) 5.7 L, Cannon % (Auto) 0.6, Eos % (Auto) 0.0, Baso % (Auto) 0.1, Absolute Neuts (auto) 7.8 H, Absolute Lymphs (auto) 0.48 L, Nucleated RBC % 0, Differential Comment COMMENT Micro: Microbiology 05/20/21 03:40 Nasal Secretion SARS-CoV-2 Antigen (Rapid) - Final Physical Exam Const alert, oriented x3, no apparent distress, average body habitus, healthy appearing and well nourished HEENT normocephalic and moist oral mucous membranes Head and Scalp: atraumatic Face and Sinus: normal facial exam Neck full ROM Resp normal respiratory effort, no retractions and no use of accessory muscles Extremity normal to inspection, full ROM and no clubbing, cyanosis or edema Psych mental status grossly normal, affect normal, speech normal and activity/motor behavior normal Assessment & Plan (1) Spontaneous miscarriage: PLAN: Patient seen and examined. Remains asymptomatic. No vaginal bleeding since surgery. Has been ambulating multiple times throughout the day, took shower. No symptoms during activity. Discussed overnight stay, patient declines for DC home. Educated on warning symptoms at home. To take p.o. iron. Follow-up this week. Patient states understanding. Okay to discharge home today.
== END 2021-05-20 18:05 | disposition home or self-care (01) ==
LOC: ED 05-20 03:46 → MS3 05-20 04:22 → SDC 05-20 04:53 → MS3 05-20 04:54 → SDC 05-20 08:15 → MS3 05-20 08:15
PROVIDERS: Admitting Provider Student in an Organized Health Care Education/Training Program; Emergency Provider Emergency Medicine; PCP Obstetrics & Gynecology; Visit Provider Student in an Organized Health Care Education/Training Program
PROC: (CPT 59812; principal; 2021-05-20 06:15)
DX: O03.9 Complete or unspecified spontaneous abortion without complication (principal); D62 Acute posthemorrhagic anemia; Z3A.11 11 weeks gestation of pregnancy
CPT/HCPCS: 59812; 01965; 36415; 80048; 85025; 85610; 85730; 86850; 86900; 86901; 87811; 88305; 93005; 94762; 96360; 96361; 99218; 99285; J7030; A4216; G0378; J2405

== ENCOUNTER 2021-05-28 09:06 | Outpatient (CLI) | payer OTHER, SELFPAY ==
[2021-05-28 09:50] LABS: Hematocrit 26.3 % (37-47); Hemoglobin 8.7 g/dL (12.0-15.0); Mean Corp Hgb Conc 33.1 g/dL (32-36); Mean Corpuscular Hgb 30.1 pg (27.0-32.0); Mean Platelet Vol. 9.8 fl (6.2-12.0); Platelet Count 396 K/mm3 (150-450); RBC Distribution Width CV 12.2 % (11.6-14.6); RBC Distribution Width SD 40.7 fl (35.1-43.9); Red Blood Count 2.89 M/mm3 (4.2-5.4); White Blood Count 4.5 K/mm3 (4.4-11.0)
[2021-05-28 10:04] LABS: Ferritin 10 ng/mL (8-252)
== END 2021-05-28 23:59 | disposition home or self-care (01) ==
LOC: WOBLAB 09:07
PROVIDERS: PCP Obstetrics & Gynecology; Visit Provider Obstetrics & Gynecology
DX: N93.9 Abnormal uterine and vaginal bleeding, unspecified (principal)
CPT/HCPCS: 36415; 82728; 85027

== ENCOUNTER → 2022-03-20 | Outpatient (CLI) | payer OTHER, SELFPAY ==
[2022-03-20 16:03] LABS: Absolute Neutrophil Count 4.3 X10^3/uL (2.0-7.7); Basophil# 0.05 X10^3/uL; Basophil% 0.7 % (0-1); Eosinophil# 0.09 X10^3/uL; Eosinophils% 1.2 % (0-5); Hematocrit 42.7 % (37-47); Hemoglobin 14.2 g/dL (12.0-15.0); Lymphocyte % 30.5 % (19-41); Mean Corp Hgb Conc 33.3 g/dL (32-36); Mean Corpuscular Hgb 29.6 pg (27.0-32.0); Mean Platelet Vol. 10.2 fl (6.2-12.0); Monocyte# 0.53 X10^3/uL; Monocyte% 7.4 % (0-10); NRBC Flagged by Analyzer 0 % (0-5); Neutrophil # 4.32 X10^3/uL (2.7-7.7); Neutrophil % 59.9 % (47-70); Platelet Count 288 K/mm3 (150-450); RBC Distribution Width SD 38.8 fl (35.1-43.9); White Blood Count 7.2 K/mm3 (4.4-11.0)
[2022-03-20 16:18] LABS: Hemoglobin A1c 5.2 % (3.8-5.6)
[2022-03-20 16:37] LABS: Estradiol 40.8 pg/mL; Follicle Stimulating Hormone 6.8 mIU/mL; Luteinizing Hormone 7.8 mIU/mL; T4 Free Direct 0.83 ng/dL (0.76-1.46); Thyroid Stim Hormone (TSH) 2.94 uIU/mL (0.358-3.74)
[2022-03-25 11:09] LABS: Testosterone, Free 0.31 ng/dL (0.10-0.85); Testosterone, Total 26 ng/dL (13-71)
[2022-03-27 18:59] LABS: Testosterone, % Free 1.18 % (0.50-2.80)
== END | disposition home or self-care (01) ==
LOC: WOBLAB 15:13
PROVIDERS: PCP Obstetrics & Gynecology; Visit Provider Obstetrics & Gynecology
DX: N97.8 Female infertility of other origin (principal)
CPT/HCPCS: 36415; 82670; 83001; 83002; 83036; 84402; 84403; 84439; 84443; 85025

== ENCOUNTER → 2022-06-03 | Outpatient (CLI) | payer OTHER, SELFPAY ==
[2022-06-03 16:04] LABS: Progesterone Level 13.86 ng/mL (See Comment)
== END | disposition home or self-care (01) ==
LOC: WOBLAB 14:37
PROVIDERS: PCP Obstetrics & Gynecology; Visit Provider Student in an Organized Health Care Education/Training Program
DX: N97.8 Female infertility of other origin (principal)
CPT/HCPCS: 36415; 84144

== ENCOUNTER → 2022-07-14 | Outpatient (CLI) | payer OTHER, SELFPAY ==
[2022-07-14 10:27] LABS: Absolute Lymphocyte Count 1.28 X10^3/uL (0.83-4.51); Absolute Neutrophil Count 6.4 X10^3/uL (2.0-7.7); Basophil# 0.05 X10^3/uL; Basophil% 0.6 % (0-1); Eosinophils% 1.2 % (0-5); Hematocrit 39.5 % (37-47); Hemoglobin 13.3 g/dL (12.0-15.0); Lymphocyte # 1.28 X10^3/ul (0.83-4.51); Mean Corp Hgb Conc 33.7 g/dL (32-36); Mean Corpuscular Hgb 30.5 pg (27.0-32.0); Mean Corpuscular Volume 90.6 fL (81-99); Mean Platelet Vol. 10.1 fl (6.2-12.0); Monocyte# 0.65 X10^3/uL; Monocyte% 7.6 % (0-10); NRBC Flagged by Analyzer 0 % (0-5); Neutrophil # 6.44 X10^3/uL (2.7-7.7); Neutrophil % 75.1 % (47-70); Platelet Count 257 K/mm3 (150-450); Red Blood Count 4.36 M/mm3 (4.2-5.4); White Blood Count 8.6 K/mm3 (4.4-11.0)
[2022-07-14 11:23] LABS: HIV - WCH Non-Reactive (Nonreactive); Hepatitis B Surface Antigen Non-Reactive (Nonreactive); Hepatitis C Antibody Non-Reactive (Nonreactive); Rubella IgG Reactive (Nonreactive); Syphilis Antibodies Non-reactive
[2022-07-15 05:07] LABS: V-Zoster IgG (Immunity) 886 index (Immune >165)
== END | disposition home or self-care (01) ==
LOC: WOBLAB 09:48
PROVIDERS: PCP Obstetrics & Gynecology; Visit Provider Obstetrics & Gynecology
DX: Z34.81 Encounter for supervision of other normal pregnancy, first trimester (principal); Z3A.00 Weeks of gestation of pregnancy not specified
CPT/HCPCS: 36415; 85025; 86703; 86762; 86780; 86787; 86803; 87086; 87088; 87340

== ENCOUNTER → 2022-08-12 | Outpatient (CLI) | payer OTHER, SELFPAY ==
[2022-08-12 10:29] LABS: Glucose Challenge Gest 1H 50g 86 mg/dL (70-140)
== END | disposition home or self-care (01) ==
LOC: WOBLAB 09:29
PROVIDERS: PCP Obstetrics & Gynecology; Visit Provider Obstetrics & Gynecology
DX: Z34.81 Encounter for supervision of other normal pregnancy, first trimester (principal)
CPT/HCPCS: 36415; 82950

== ENCOUNTER → 2022-11-11 | Outpatient (CLI) | payer OTHER, SELFPAY ==
[2022-11-11 07:04] LABS: Absolute Lymphocyte Count 1.37 X10^3/uL (0.83-4.51); Absolute Neutrophil Count 4.7 X10^3/uL (2.0-7.7); Basophil# 0.02 X10^3/uL; Basophil% 0.3 % (0-1); Eosinophil# 0.07 X10^3/uL; Eosinophils% 1.1 % (0-5); Hematocrit 39.4 % (37-47); Hemoglobin 13.2 g/dL (12.0-15.0); Lymphocyte # 1.37 X10^3/ul (0.83-4.51); Lymphocyte % 20.6 % (19-41); Mean Corp Hgb Conc 33.5 g/dL (32-36); Mean Corpuscular Hgb 30.2 pg (27.0-32.0); Mean Corpuscular Volume 90.2 fL (81-99); Mean Platelet Vol. 9.6 fl (6.2-12.0); Monocyte# 0.43 X10^3/uL; Monocyte% 6.5 % (0-10); NRBC Flagged by Analyzer 0 % (0-5); Neutrophil # 4.73 X10^3/uL (2.7-7.7); Neutrophil % 70.9 % (47-70); Platelet Count 230 K/mm3 (150-450); RBC Distribution Width SD 39.5 fl (35.1-43.9); Red Blood Count 4.37 M/mm3 (4.2-5.4); White Blood Count 6.7 K/mm3 (4.4-11.0)
[2022-11-11 07:29] LABS: Glucose GTT-Gestation. Fasting 78 mg/dL (<105)
[2022-11-11 08:34] LABS: Glucose GTT-Gestational 1 Hr 144 mg/dL (<190)
[2022-11-11 09:37] LABS: HIV - WCH Non-Reactive (Nonreactive); Syphilis Antibodies Non-reactive
[2022-11-11 09:53] LABS: Glucose GTT-Gestational 2 Hr 102 mg/dL (<165)
[2022-11-11 11:17] LABS: Glucose GTT-Gestational 3 Hr 81 L (<145)
== END | disposition home or self-care (01) ==
LOC: LAB 06:48
PROVIDERS: Referring Provider Obstetrics & Gynecology; Visit Provider Obstetrics & Gynecology
DX: Z34.90 Encounter for supervision of normal pregnancy, unspecified, unspecified trimester (principal); Z86.32 Personal history of gestational diabetes; Z3A.00 Weeks of gestation of pregnancy not specified
CPT/HCPCS: 36415; 82951; 82952; 85025; 86703; 86780

== ENCOUNTER → 2022-11-30 | Outpatient (CLI) | payer OTHER, SELFPAY ==
[2022-11-30 16:48] LABS: Absolute Lymphocyte Count 2.16 X10^3/uL (0.83-4.51); Absolute Neutrophil Count 7.8 X10^3/uL (2.0-7.7); Basophil# 0.05 X10^3/uL; Basophil% 0.5 % (0-1); Eosinophil# 0.07 X10^3/uL; Eosinophils% 0.6 % (0-5); Hematocrit 38.6 % (37-47); Hemoglobin 12.2 g/dL (12.0-15.0); Lymphocyte # 2.16 X10^3/ul (0.83-4.51); Lymphocyte % 19.8 % (19-41); Mean Corp Hgb Conc 31.6 g/dL (32-36); Mean Corpuscular Hgb 28.4 pg (27.0-32.0); Mean Platelet Vol. 10.3 fl (6.2-12.0); Monocyte# 0.79 X10^3/uL; Monocyte% 7.2 % (0-10); NRBC Flagged by Analyzer 0 % (0-5); Neutrophil # 7.77 X10^3/uL (2.7-7.7); Neutrophil % 71.3 % (47-70); Platelet Count 240 K/mm3 (150-450); RBC Distribution Width CV 11.9 % (11.6-14.6); RBC Distribution Width SD 39.3 fl (35.1-43.9); Red Blood Count 4.29 M/mm3 (4.2-5.4); White Blood Count 10.9 K/mm3 (4.4-11.0)
[2022-11-30 17:12] LABS: ALB/GLOB Ratio 0.7 RATIO (0.9-2.4); AST(SGOT) 16 U/L (15-37); Alanine Aminotransfer ALT/SGPT 15 U/L (13-56); Albumin, Serum 2.9 g/dL (3.2-5.0); Alkaline Phosphatase 120 U/L (45-117); Anion Gap 5 (5-15); BUN 9 mg/dL (7-18); BUN/Creat Ratio 15.2 RATIO (10-20); Calcium,Total 8.6 mg/dL (8.5-10.1); Chloride 106 mmol/L (98-107); Creatinine, Serum 0.59 mg/dL (0.55-1.02); EST Glomerular Filtration Rate 127 mL/min (>60); Est Glom Filt Rate - Afr Amer 153 mL/min (>60); Globulin 4.1 g/dL (2.2-4.2); Glucose 79 mg/dL (74-106); Potassium 3.9 mmol/L (3.5-5.1); Sodium Level 138 mmol/L (136-145); Uric Acid 2.6 mg/dL (2.6-6.0)
[2022-11-30 18:41] LABS: Protein, Urine (Random) 8.3 mg/dL (<11.9); Protein:Creat Ratio 257 mg/g CRE (0-200)
== END | disposition home or self-care (01) ==
PROVIDERS: Referring Provider Obstetrics & Gynecology; Visit Provider Obstetrics & Gynecology
DX: Z34.90 Encounter for supervision of normal pregnancy, unspecified, unspecified trimester (principal); Z86.32 Personal history of gestational diabetes; Z3A.00 Weeks of gestation of pregnancy not specified
CPT/HCPCS: 36415; 80053; 82570; 84156; 84550; 85025

== ENCOUNTER → 2023-01-04 | Outpatient (CLI) | payer OTHER, SELFPAY ==
[2023-01-04 17:20] LABS: Protein, Urine (Random) 10.3 mg/dL (<11.9); Protein:Creat Ratio 212 mg/g CRE (0-200)
== END | disposition home or self-care (01) ==
LOC: LABSPEC 16:37
PROVIDERS: Referring Provider Obstetrics & Gynecology; Visit Provider Obstetrics & Gynecology
DX: O16.9 Unspecified maternal hypertension, unspecified trimester (principal); Z3A.00 Weeks of gestation of pregnancy not specified
CPT/HCPCS: 82570; 84156

== ENCOUNTER → 2023-01-11 | Outpatient (CLI) | payer OTHER, SELFPAY ==
[2023-01-11 15:00] LABS: Absolute Lymphocyte Count 1.76 X10^3/uL (0.83-4.51); Absolute Neutrophil Count 7.5 X10^3/uL (2.0-7.7); Basophil# 0.03 X10^3/uL; Basophil% 0.3 % (0-1); Eosinophil# 0.02 X10^3/uL; Eosinophils% 0.2 % (0-5); Hematocrit 40.5 % (37-47); Lymphocyte # 1.76 X10^3/ul (0.83-4.51); Lymphocyte % 17.5 % (19-41); Mean Corp Hgb Conc 32.1 g/dL (32-36); Mean Corpuscular Hgb 28.2 pg (27.0-32.0); Mean Corpuscular Volume 87.9 fL (81-99); Monocyte# 0.66 X10^3/uL; Monocyte% 6.6 % (0-10); NRBC Flagged by Analyzer 0 % (0-5); Neutrophil # 7.53 X10^3/uL (2.7-7.7); Neutrophil % 74.8 % (47-70); Platelet Count 230 K/mm3 (150-450); RBC Distribution Width CV 13.3 % (11.6-14.6); RBC Distribution Width SD 42.5 fl (35.1-43.9); Red Blood Count 4.61 M/mm3 (4.2-5.4); White Blood Count 10.1 K/mm3 (4.4-11.0)
[2023-01-11 15:17] LABS: ALB/GLOB Ratio 0.7 RATIO (0.9-2.4); AST(SGOT) 18 U/L (15-37); Alanine Aminotransfer ALT/SGPT 12 U/L (13-56); Albumin, Serum 2.9 g/dL (3.2-5.0); Alkaline Phosphatase 202 U/L (45-117); Anion Gap 6 (5-15); BUN 9 mg/dL (7-18); BUN/Creat Ratio 13.3 RATIO (10-20); Calcium,Total 8.7 mg/dL (8.5-10.1); Chloride 104 mmol/L (98-107); Creatinine, Serum 0.68 mg/dL (0.55-1.02); EST Glomerular Filtration Rate 108 mL/min (>60); Est Glom Filt Rate - Afr Amer 131 mL/min (>60); Globulin 4.3 g/dL (2.2-4.2); Glucose 86 mg/dL (74-106); Potassium 3.7 mmol/L (3.5-5.1); Protein, Total 7.2 g/dL (6.4-8.2); Sodium Level 137 mmol/L (136-145)
[2023-01-11 15:25] LABS: Protein, Urine (Random) 6.3 mg/dL (<11.9); Protein:Creat Ratio 208 mg/g CRE (0-200)
== END | disposition home or self-care (01) ==
PROVIDERS: Referring Provider Obstetrics & Gynecology; Visit Provider Obstetrics & Gynecology
DX: R09.89 Other specified symptoms and signs involving the circulatory and respiratory systems (principal)
CPT/HCPCS: 36415; 80053; 82570; 84156; 85025

== ENCOUNTER → 2023-01-18 | Outpatient (CLI) | payer OTHER, SELFPAY | END | disposition home or self-care (01) | PROVIDERS: Visit Provider Obstetrics & Gynecology | DX: Z34.90 Encounter for supervision of normal pregnancy, unspecified, unspecified trimester (principal); Z3A.00 Weeks of gestation of pregnancy not specified | CPT/HCPCS: 87081 ==

== ENCOUNTER → 2023-01-19 | Outpatient (CLI) | payer OTHER, SELFPAY ==
--- NOTE | 2023-01-19 08:39 | US_ITS ---
STUDY: SECOND AND THIRD TRIMESTER OBSTETRICAL ULTRASOUND REASON FOR EXAM: Female, 32 years old labile blood pressures -- 36 weeks (week of 01/20- 20) LMP: May 13, 2022. TECHNIQUE: Transabdominal TECHNICAL QUALITY: Adequate. PRIOR ULTRASOUND: None. FINDINGS: There is a single intrauterine fetus. The fetus is in a cephalic presentation. There is demonstrated cardiac activity with a heart rate of 136 bpm. There is a normal amniotic fluid volume. The largest amniotic fluid pocket measures 6.7 cm. The amniotic fluid index (RALPH) is 16.9 cm. The placenta is anterior in location and is not low lying. There are Grade 1 placental changes. The cervix measures 5.3 cm in length. The adnexal regions are not visualized. BIOMETRY: BPD: 8.9 cm: 36 weeks, 3 days HC: 32.7 cm: 37 weeks, 1 days AC: 32.1 cm: 36 weeks, 0 days FL: 6.9 cm: 35 weeks, 1 days CI: 77.4 FL/BPD: 76.3 FL/HC: FL/AC: 21.4 HC/AC: 1.0 age by current US: 36 weeks, 2 days. ELTON by current US: February 14, 2023. Estimated weight: 2809 grams, +/- 421 grams, 53 %. Age by LMP: 35 weeks, 6 days. ELTON by LMP: February 17, 2023. US/OB Limited With Biometrics IMPRESSION: Single live intrauterine gestation with a mean gestational age of 36 weeks and 2 days. Electronically Signed: Jesus Vazquez MD at 14:51 EST ,
== END | disposition home or self-care (01) ==
LOC: US 08:39
PROVIDERS: Referring Provider Obstetrics & Gynecology; Visit Provider Obstetrics & Gynecology
DX: Z34.90 Encounter for supervision of normal pregnancy, unspecified, unspecified trimester (principal); R09.89 Other specified symptoms and signs involving the circulatory and respiratory systems; Z3A.00 Weeks of gestation of pregnancy not specified
CPT/HCPCS: 76816

== ENCOUNTER → 2023-01-25 | Outpatient (CLI) | payer OTHER, SELFPAY ==
[2023-01-25 16:26] LABS: Absolute Lymphocyte Count 2.05 X10^3/uL (0.83-4.51); Absolute Neutrophil Count 7.7 X10^3/uL (2.0-7.7); Basophil# 0.05 X10^3/uL; Basophil% 0.5 % (0-1); Eosinophil# 0.06 X10^3/uL; Eosinophils% 0.6 % (0-5); Hematocrit 41.8 % (37-47); Hemoglobin 13.4 g/dL (12.0-15.0); Lymphocyte # 2.05 X10^3/ul (0.83-4.51); Lymphocyte % 19.3 % (19-41); Mean Corp Hgb Conc 32.1 g/dL (32-36); Mean Corpuscular Hgb 28.3 pg (27.0-32.0); Mean Corpuscular Volume 88.4 fL (81-99); Mean Platelet Vol. 10.9 fl (6.2-12.0); Monocyte# 0.76 X10^3/uL; Monocyte% 7.1 % (0-10); NRBC Flagged by Analyzer 0 % (0-5); Neutrophil # 7.68 X10^3/uL (2.7-7.7); Neutrophil % 72.1 % (47-70); Platelet Count 201 K/mm3 (150-450); RBC Distribution Width CV 14.1 % (11.6-14.6); RBC Distribution Width SD 45.1 fl (35.1-43.9); Red Blood Count 4.73 M/mm3 (4.2-5.4); White Blood Count 10.6 K/mm3 (4.4-11.0)
[2023-01-25 16:42] LABS: ALB/GLOB Ratio 0.7 RATIO (0.9-2.4); AST(SGOT) 15 U/L (15-37); Alanine Aminotransfer ALT/SGPT 13 U/L (13-56); Albumin, Serum 2.9 g/dL (3.2-5.0); Alkaline Phosphatase 228 U/L (45-117); Anion Gap 5 (5-15); BUN 7 mg/dL (7-18); Calcium,Total 9.1 mg/dL (8.5-10.1); Chloride 104 mmol/L (98-107); Creatinine, Serum 0.64 mg/dL (0.55-1.02); EST Glomerular Filtration Rate 117 mL/min (>60); Est Glom Filt Rate - Afr Amer 141 mL/min (>60); Globulin 4.4 g/dL (2.2-4.2); Glucose 80 mg/dL (74-106); Potassium 3.8 mmol/L (3.5-5.1); Protein, Total 7.3 g/dL (6.4-8.2); Sodium Level 134 mmol/L (136-145)
[2023-01-25 16:58] LABS: Protein, Urine (Random) < 6.0 mg/dL (<11.9)
== END | disposition home or self-care (01) ==
LOC: LAB 16:13
PROVIDERS: Referring Provider Obstetrics & Gynecology; Visit Provider Obstetrics & Gynecology
DX: R09.89 Other specified symptoms and signs involving the circulatory and respiratory systems (principal)
CPT/HCPCS: 36415; 80053; 82570; 84156; 85025

== ENCOUNTER 2023-01-27 06:49 | Inpatient (IN) | payer OTHER, SELFPAY ==
[2023-01-27] VITALS (70 sets, daily range): BP systolic 94–144; BP diastolic 55–84; PULSE 75–139; RESP 16–18; TEMP 36.2–37.1; O2SAT 93–100; BMI 26.6
[2023-01-27] MEDS: Lactated Ringers 1,000 ML 50 ML IV (08:00)
[2023-01-27] MEDS: 0.9% Normal Saline Single 100 ML IV.SOLN. INTRA-UTER (08:10)
--- NOTE | 2023-01-27 08:22 | HP.PCM.OB_ITS ---
HPI - General General Date of Admission: 01/27/23 HPI Narrative ANANYA SOSA, is a 32 y/o @ 37 week 0 days F who presents to L&D for induction of labor due to induced hypertension without proteinuria or hypertension. Maternal Data Information ELTON Calculator Estimated Delivery Date Method Current WG Current Estimate 02/17/23 LMP (Certain) 37w 0d PFSH PFSH Medical History Gestational diabetes Orthostatic syncope Home Medications docosahexaenoic acid 200 mg capsule ( DHA) mg PO 10/23/22 [History Last Taken Unknown] Allergy/AdvReac Type Severity Reaction Status Date / Time No Known Allergies Allergy Verified 01/25/23 15:35 Family History Sister Diabetes type 1 Grandfather Diabetes type 2 Grandmother Multiple myeloma Surgical History H/O dilation and curettage Social History Smoking Status: Never smoker alcohol intake: never substance use type: does not use caffeine: Yes what type of physical activity do you participate in: walking frequency: 3-4 times per week seatbelt use: always do you feel safe at home: Yes additional social history: - Julian History 4 Elective abortions Hx Para 1 Spontaneous abortions 2 Hx # Term Pregnancies Ectopic pregnancies Hx # Pregnancies Multiple births # of living children 1 Past Pregnancies Del. Date Name GA/Weeks Outcome Route Bth Weight Infant Gen Labor Lgth Anesthesia Del Locatn Provider FOB 04/20/20 Ann Marie 39 live - full term 6lbs 6oz Female Dr. Roz Jordan Delivery Date: 04/20/20 Last Updated by: Vane Wallis Gestational diabetes Visit Details Expected Delivery Route/Plan Labor Preferences- CB/BF classes: declines labor support person: Julian labor intervention preferences: [] pain management options preferred: epidural cut cord/dad catch: yes : yes PP control planned: discussed discussed possible routes of delivery and associated risks: [] special requests: [] Plans Covid status: initial 2 vaccines Flu vaccine: given Tdap vaccine: 11/30/22 Rhogam: NA LARC form signed: yes Problem list reviewed and updated with the most current plan of care details and appropriate orders placed. Relevant counseling for the gestational age provided. Continue routine care and follow up unless otherwise noted in visit notes/problem list details OB Flowsheet Initial Weight: Not Recorded Date -?-?-?-?-?-?-?-?-?-?-?-?- EGA Weight BP Urine Prot -?-?-?-?-?-?-?-?-?-?-?-?- Glucose FHR FuHt Pres Dilation -?-?-?-?-?-?-?-?-?-?-?-?- Effaced St Visit Note 10/23/22 -?-?-?-?-?-?-?-?-?-?-?-?- 23w 2d 134 lb 2 oz 133/82 Nega tive -?-?-?-?-?-?-?-?-?-?-?-?- Negative 145 24 -?-?-?-?-?-?-?-?-?-?-?-?- Sm- MITCHELL from [facility]. no vb cramping 11/19/22 -?-?-?-?-?-?-?-?-?-?-?-?- 27w 1d 137 lb 2 oz 118/76 Nega tive -?-?-?-?-?-?-?-?-?-?-?-?- Negative 141 27 -?-?-?-?-?-?-?-?-?-?-?-?- MH-NO VB, LOF. G ood FM. Flu vaccine, larc. 11/30/22 -?-?-?-?-?-?-?-?-?-?-?-?- 28w 5d 140 lb 2 oz 135/85 Nega tive -?-?-?-?-?-?-?-?-?-?-?-?- Negative 142 28 -?-?-?-?-?-?-?-?-?-?-?-?- JV- bp slightly elevated. rpt was 130/80. collecting PIH labs now. 12/14/22 -?-?-?-?-?-?-?-?-?-?-?-?- 30w 5d 142 lb 4 oz 118/82 Nega tive -?-?-?-?-?-?-?-?-?-?-?-?- Negative 149 30 -?-?-?-?-?-?--?-?-?-?-?-?- MH-No Vb, LOF. G ood FM. BP WNl 01/04/23 -?-?-?-?-?-?-?-?-?-?-?-?- 33w 5d 145 lb 2 oz 144/88 Nega tive -?-?-?-?-?-?-?-?-?-?-?-?- Negative 147 33 -?-?-?-?-?-?-?-?-?-?-?-?- JV- bp mildly el evated again today. pt is asymptomatic, rpt is 138/84 laying and 132/87 sitting. will rpt prot: cr JV- bp mildly elevated again today. pt is asymptomatic, rpt is 138/84 laying and 132/87 sitting. will rpt prot: cr and start seeing her weekly to monitor closely. pre-e symptoms and signs discussed. 01/11/23 -?-?-?-?-?-?-?-?-?-?-?-?- 34w 5d 147 lb 129/86 Negative -?-?-?-?-?-?-?-?-?-?-?-?- Negative 140 34 Cephalic -?-?-?-?-?-?-?-?-?-?-?-?- JV- rpt bp was n ormal, but first was still elevated. rpt pih labs. likely will deliver at 37 weeks if continues to have labile pressures. 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 NST reactive. plan to start home bp monitoring. induction at 37 weeks set up. Return with bp log and for NSt. 01/21/23 -?-?-?-?-?-?-?-?-?-?-?-?- 36w 1d 146 lb 128/79 Negative -?-?-?-?-?-?-?-?-?-?-?-?- Negative 130 Cephalic -?-?-?-?-?-?-?-?-?-?-?-?- SM- repeat bps n ormal all at home no meds, continue to monitor, will repeat eval early next week, if elevated recommend iol end of next week, if normal may consider expectant management. reviewed preeclampsia precautions 01/25/23 -?-?-?-?-?-?-?-?-?-?-?-?- 36w 5d 148 lb 138/90 -?-?-?-?-?-?-?-?-?-?-?-?- 130 Cephalic -?-?-?-?-?--?-?-?-?-?-?-?- SM- no vb lof go od fm n oregular ctx bps labile but mildly elevated, repeat labs today, gbs today ROS Constitutional Constitutional: Denies change in weight, fatigue, fever(s), headache(s), poor appetite or weakness Eyes Eyes: Denies blurry vision, change in vision, seeing flashes or spots in vision ENT HEENT: Denies dizziness, headache(s), loss taste/smell or sore throat Cardiovascular Cardiovascular: Denies chest pain, dizziness, dyspnea, irregular heart rhythm, leg edema, palpitations, rapid heart rate or vomiting Respiratory/Chest Respiratory/Chest: Denies chest tightness, cough, dyspnea or breast pain Gastrointestinal Gastrointestinal: Denies abdominal pain, anorexia, constipation, cramping, diarrhea, hemorrhoids, vomiting or weight changes Genitourinary Genitourinary: Denies dysuria, flank pain, genital lesions, genital pain, urinary frequency or urinary urgency Musculoskeletal Musculoskeletal: Denies back pain, difficulty walking, joint pain, limited range of motion, muscle cramps or numbness Integumentary Integumentary: Denies lesions or unusual bruising Neurologic Neurologic: Denies abnormal movements, abnormal speech, dizziness, numbness, seizure-like activity or syncope Psychiatric Psychiatric: Denies anxiety, behavioral changes, change in appetite, change in libido, cognitive impairment, confusion, depression, difficulty concentrating, hallucinations or suicidal thoughts Endocrine Endocrinology: Denies excessive sweating, polydipsia or polyuria Hematologic/Lymphatic Hematologic/Lymphatic: Denies easy bleeding, easy bruising or lymphadenopathy Allergic/Immunologic Allergic/Immunologic: Denies itchy eyes, lip swelling, seasonal rhinorrhea, rhinitis, throat swelling, tongue swelling, eczemia, wheezing or asthma Vital Signs Vital Signs Vital Signs: 01/27/23 07:16 01/27/23 07:17 01/27/23 07:17 Temperature Temperature Source Temporal Pulse Rate 122 H Blood Pressure 132/84 H BP Systolic 132 BP Diastolic 84 Pulse Ox 01/27/23 07:16 01/27/23 07:19 01/27/23 07:19 Temperature 97.4 F L Temperature Source Pulse Rate 122 H Blood Pressure BP Systolic BP Diastolic Pulse Ox 98 Weight Weight: 146 lb Body Mass Index (BMI) 26.6 Physical Exam Const alert, oriented x3, no apparent distress and healthy appearing General Appearance: cooperative; Negative for anxious HEENT normocephalic Face and Sinus: normal facial exam Eyes EOMs intact bilaterally and no scleral icterus General Eye: normal appearance of both eyes Neck full ROM and supple Lymph Lymphatic: no lymphadenopathy noted Chest Chest: abnormal inspection of the chest Resp normal respiratory effort Effort and Inspection: able to speak in complete sentences Cardio regular rate GI soft to palpation and non-tender Inspection: gravid Palpation: soft; Negative for tender external exam normal Amniotic Fluid: ROM+plus Back/Spine no CVA tenderness Extremity normal to inspection, full ROM and no clubbing, cyanosis or edema General Extremity: Negative for calf tenderness or edema Skin Lesions: no lesions Rashes: no rashes Psych mental status grossly normal Labs Labs Labs: Blood Type O POSITIVE Antibody Screen NEGATIVE Hct 41.8 % (37-47) Hgb 13.4 g/dL (12.0-15.0) Pap Smear Negative Obstetrics Ultrasound Syphilis Total Ab Non-reactive VZV IgG Antibody 886 index (Immune >165) Rubella IgG Antibody Reactive (Nonreactive) Hep Bs Antigen Non-Reactive (Nonreactive) Hepatitis C Antibody Non-Reactive (Nonreactive) Chlamydia DNA (NOE) Negative (Negative) N.gonorrhoeae DNA (NOE) Negative (Negative) HIV 1&2 Antibody Non-Reactive (Nonreactive) Glucose 1 Hr 50 gm 86 mg/dL (70-140) Gest Glucose Tolerance MG/DL Rhogam given: No Assessment & Plan (1) Labile blood pressure: COMMENT: close monitoring to rule out pre-e. all BPs WNL at home, nl 01/21 in office, will get pree labs 01/25, any consistently elevated bps or proteinuria consider 37 week delivery growth scan at 36 weeks- nl. (2) History of gestational diabetes: COMMENT: Passed 1hr GTT early in and 28 wk 3 hr: normal (3) : COMMENT: Declined NIPT/carrier/afp testing. Anatomy US NL. gbs neg (4) Supervision of normal : QUALIFIERS: Normal : other normal Trimester: second trimester Qualified Code(s): Z34.82 - Encounter for supervision of other normal , second trimester COMMENT: PRR ELTON 02/17/23 Boy PC Ann Marie : Julian PLAN: Plan baker catheter placed without difficulty. plan to start pitocin and arom when appropriate.
[2023-01-27 08:29] LABS: Absolute Lymphocyte Count 1.38 X10^3/uL (0.83-4.51); Absolute Neutrophil Count 7.1 X10^3/uL (2.0-7.7); Basophil# 0.04 X10^3/uL; Basophil% 0.4 % (0-1); Eosinophil# 0.03 X10^3/uL; Eosinophils% 0.3 % (0-5); Hematocrit 37.2 % (37-47); Hemoglobin 12.1 g/dL (12.0-15.0); Lymphocyte # 1.38 X10^3/ul (0.83-4.51); Mean Corp Hgb Conc 32.5 g/dL (32-36); Mean Corpuscular Hgb 28.3 pg (27.0-32.0); Mean Corpuscular Volume 86.9 fL (81-99); Mean Platelet Vol. 11.2 fl (6.2-12.0); Monocyte# 0.59 X10^3/uL; Monocyte% 6.4 % (0-10); NRBC Flagged by Analyzer 0 % (0-5); Neutrophil # 7.07 X10^3/uL (2.7-7.7); Neutrophil % 77.2 % (47-70); Platelet Count 200 K/mm3 (150-450); RBC Distribution Width CV 14.2 % (11.6-14.6); RBC Distribution Width SD 44.1 fl (35.1-43.9); Red Blood Count 4.28 M/mm3 (4.2-5.4); White Blood Count 9.2 K/mm3 (4.4-11.0)
[2023-01-27] MEDS: Oxytocin 15 Units/NS 250ml 15 UNITS/250 ML IV.SOLN 2 UNITS IV (08:32)
[2023-01-27 09:04] LABS: Syphilis Antibodies Non-reactive
[2023-01-27] MEDS: LACTATED RINGERS 500 ML 999 ML IV ×2 (12:35→13:31)
[2023-01-27] MEDS: fentaNYL-bupivacaine (epidural) 100 ML BAG EPIDURAL (13:22)
--- NOTE | 2023-01-27 13:37 | PN_ITS ---
Progress Note pt is laying comfortably in bed. Tong bulb fell out at 9:30 this am and she consents to AROM. current tracing: FHT: Moderate variability reactive no decelerations category I tracing [place]: q2 min Contractions cx: 4/70/-1, membranes ruptured with clear fluid return reviewed tracing abnormalities since last note: no changes A/P: plan for epidural soon. fluid bolus ordered. continue pitocin
--- NOTE | 2023-01-27 17:06 | OP.PCM_ITS ---
Assessment & Plan (1) History of gestational diabetes: COMMENT: Passed 1hr GTT early in and 28 wk 3 hr: normal (2) : COMMENT: Declined NIPT/carrier/afp testing. Anatomy US NL. gbs neg (3) Supervision of normal : QUALIFIERS: Normal : other normal Trimester: second trimester Qualified Code(s): Z34.82 - Encounter for supervision of other normal , second trimester COMMENT: PRR ELTON 02/17/23 Boy [place] Jesus : Julian Maternal Data Information ELTON Calculator Estimated Delivery Date Method Current WG Current Estimate 02/17/23 LMP (Certain) 37w 0d Final ELTON Source: LMP Gestational age: 37 weeks 0 days Vaginal Delivery Maternal Presentation Maternal Presentation: Medically Indicated Induction Type of Induction: Pitocin, Tong Bulb and Amniotomy Medical Reason for Induction: Gestational Hypertension Operative Information Date of Procedure: 01/27/23 Pre-Operative Diagnosis: 32 y/o @ 37 weeks 0 days with gestational hypertension Post-Operative Diagnosis: 32 y/o @ 37 weeks 0 days with gestational hypertension Surgery / Procedure Performed: Spontaneous Vaginal Delivery Type of Anesthesia: Epidural Special Medications: none Drain: Tong to straight drain Estimated Blood Loss: 20cc Time of Delivery: 16:55 Findings Description of Procedure: Patient began pushing and delivered the head in the SWATI presentation. The head was delivered atraumatically and a loose nuchal cord ?2 was identified and easily reduced over the 's head. The anterior and posterior shoulders delivered without complication followed by the rest of the infant and the infant was placed on the maternal abdomen. Delayed cord clamping was employed for approximately 60 seconds. Cord was clamped and cut and gentle traction was kymberly lied to the cord and the placenta delivered spontaneously immediately following it was noted to be intact with three-vessel cord. The perineum and vagina were inspected and noted to have no laceration. EBL was 20cc. Patient and tolerated delivery well. Presentation: Vertex Amniotic Membrane Rupture Type: Artificial Time of Membrane Rupture: 12:15 Amniotic Fluid Description: Clear Placental Delivery Description: Spontaneous Placenta Disposition: [facility] Cord Vessel Description: 3 Vessels Cord Entanglement: Around neck x 2, loose Nuchal Cord Compression: Without compression Infant A Gender: Male (1 minute): 7 (5 minute): 9 Delayed Cord Clamping: Yes Post Vaginal Delivery Medications Given After Delivery: IV Pitocin Episiotomy Description: None Laceration: None Complication Complications: None Multi Select Codes Urinary/Genital Urinary/Genital CPT Codes: 46480 Vaginal Delivery [facility]
--- NOTE | 2023-01-27 17:13 | DCINST_ITS ---
Discharge Instructions Diet Discharge Diet: No restrictions Activity Discharge Activity: Return to Normal Activity, May Not Drive (while taking narcotic pain medications.) and May Shower May resume sexual activity in: 4-6 weeks Dressing / Incision Call your doctor if your incision/area has: Continuous Slow Oozing, Sudden Increased Bleeding, Increased Pain/ Swelling, Increased Redness and Foul Smelling Discharge Follow Up Care Please Follow Up With: Aundrea Byrd DO When: Call [phone] to make an appointment with your doctor in 6 weeks. If you had elevated blood pressure or 4th degree laceration, you will need to be seen in 2 weeks. Test Results: Test results from this visit will be discussed in further detail at your follow- up appointment, if applicable. Discharge Plan Admission Admit Date/Time: 01/27/23 06:49 Primary Reason for Your Visit: induction of labor/ vaginal delivery Attending Provider: Aundrea Byrd Primary Care Provider: Care Physician,Corrine Primary Discharge Orders/Prescriptions Prescriptions: New naproxen 500 mg tablet 500 mg PO BID PRN (Reason: pain) Qty: 30 0RF Continued DHA 200 mg capsule PO Referrals / Follow Up: Care Physician,No Primary [Primary Care Provider] - Disposition Disposition (needs filled in before D/C Order can be placed): Home, Self Care
[2023-01-27] MEDS: Acetaminophen 500 MG Tablet 1000 MG PO ×2 (17:26→23:53)
[2023-01-27] MEDS: Oxytocin 15 Units/NS 250ml 15 UNITS/250 ML IV.SOLN 83 UNITS IV (17:51)
[2023-01-27] MEDS: 0.9% Saline Lock 10 ML Syringe IV (21:20)
[2023-01-27] MEDS: Naproxen 500 MG Tablet PO (22:42)
[2023-01-28] VITALS (11 sets, daily range): BP systolic 132–154; BP diastolic 72–80; PULSE 77–100; RESP 16–20; TEMP 36.3–36.9; O2SAT 97–100
[2023-01-28] MEDS: Senna/Docusate Sodium 1 Tablet PO (06:39)
[2023-01-28] MEDS: Naproxen 500 MG Tablet PO (06:39)
--- NOTE | 2023-01-28 07:25 | NURSING ---
bedside report given to Jose Alfredo Lala RN who is assuming care of pt at this time.
--- NOTE | 2023-01-28 12:33 | PN.OBGYN_ITS ---
Subjective Subjective Patient doing well without complaints. Tolerating PO. Ambulating and voiding without difficulty. Feeding well. Denies chest pain, shortness of breath, calf pain/swelling, fevers, chills, lightheadedness. Objective Data Objective Data Vital Signs: Vital Signs Temp Pulse Resp BP Pulse Ox O2 Del Method 97.3 F L 77 16 147/80 H 100 Room Air 01/28/23 12:08 01/28/23 12:08 01/28/23 12:08 01/28/23 12:08 01/28/23 03:42 01/28/23 03:42 Oxygen Delivery Method Room Air Weight: 146 lb Body Mass Index (BMI) 26.6 Intake & Output: Intake and Output for Last 24 Hours 01/26/23 01/27/23 01/28/23 23:59 23:59 23:59 Intake Total 2500.00 / 2500.00 Output Total 1480 / 1480 Balance 1020.00 / 1020.00 Lab / Micro Data Attestation: I reviewed the patient's lab results. 01/27/23 07:50 ROS Constitutional Constitutional: Reports systems reviewed and no addt'l complaints, except as documented; Denies anorexia or headache(s) Cardiovascular Cardiovascular: Reports systems reviewed and no addt'l complaints, except as documented; Denies dizziness, dyspnea, nausea or tachypnea Respiratory/Chest Respiratory/Chest: Reports systems reviewed and no addt'l complaints, except as documented; Denies cough, dyspnea, shortness of breath at rest or tachypnea Gastrointestinal Gastrointestinal: Reports systems reviewed and no addt'l complaints, except as documented; Denies abdominal pain, constipation or nausea Genitourinary Genitourinary: Reports systems reviewed and no addt'l complaints, except as documented; Denies burning urination, difficulty urinating, dysuria, urinary frequency or urinary incontinence Musculoskeletal Musculoskeletal: Reports systems reviewed and no addt'l complaints, except as documented Integumentary Integumentary: Reports systems reviewed and no addt'l complaints, except as documented Neurologic Neurologic: Reports systems reviewed and no addt'l complaints, except as documented; Denies abnormal speech, dizziness or headache(s) Psychiatric Psychiatric: Reports systems reviewed and no addt'l complaints, except as docu mented Endocrine Endocrinology: Reports systems reviewed and no addt'l complaints, except as documented Hematologic/Lymphatic Hematologic/Lymphatic: Reports systems reviewed and no addt'l complaints, except as documented Physical Exam Const alert, oriented x3 and no apparent distress Neck full ROM Resp normal respiratory effort, normal air movement and no retractions Effort and Inspection: able to speak in complete sentences and symmetric chest movement GI soft to palpation Bladder / Kidney Exam: bladder normal to palpation Uterus Palpation: uterus fundus firm Extremity normal to inspection and full ROM Psych mental status grossly normal, thought process normal and cooperative Assessment & Plan (1) Status post normal vaginal delivery: PLAN: s/p PPD # 1 1. routine post delivery care 2. breast feeding- support given 3. rh positive 4. rubella immune 5. Discharge Home (2) Labile blood pressure: COMMENT: PLAN: continue to monitor BP at home x 2 weeks call with BPs 140/80 or higher-consider starting medication if needed If any 160/100 or higher-notify guest relations manager provider and present to [facility] for treatment Charges/Coding Multi Select Codes Urinary/Genital Urinary/Genital CPT Codes: No Charge
--- NOTE | 2023-01-28 12:37 | DCINST_ITS ---
Discharge Instructions Diet Discharge Diet: No restrictions Activity Discharge Activity: Return to Normal Activity May resume sexual activity in: 4-6 weeks Dressing / Incision Call your doctor if your incision/area has: Continuous Slow Oozing, Sudden Increased Bleeding, Increased Pain/ Swelling, Increased Redness and Foul Smelling Discharge Call your doctor if you observe: Fever of 101 or Higher, Coldness, Increased Pain, Numbness or Tingling, Change in Color, Inability to urinate, Inability to have a bowel movement, Using more than 1 pad per hour, Shortness of breath, Dizz iness, Fainting spells, Swelling in the ankles, Chest pain, Increased palpitations (irregular heartbeat), Calf discomfort and Uncontrolled pain Follow Up Care Please Follow Up With: Aundrea Byrd DO When: Please call the office to schedule your follow up appointment in 6 weeks. If you had high blood pressure please call to schedule an appointment in 2 weeks. Test Results: Test results from this visit will be discussed in further detail at your follow- up appointment, if applicable. Discharge Plan Admission Admit Date/Time: 01/27/23 06:49 Primary Reason for Your Visit: induction of labor/ vaginal delivery Attending Provider: Aundrea Byrd Primary Care Provider: Care Physician,Corrine Primary Discharge Orders/Prescriptions Prescriptions: New naproxen 500 mg tablet 500 mg PO BID PRN (Reason: pain) Qty: 30 0RF Continued DHA 200 mg capsule PO Referrals / Follow Up: Care Physician,Corrine Primary [Primary Care Provider] - Disposition Disposition (needs filled in before D/C Order can be placed): Home, Self Care
== END 2023-01-28 17:45 | disposition home or self-care (01) | DRG 807 ==
PROVIDERS: Admitting Provider Obstetrics & Gynecology; Visit Provider Obstetrics & Gynecology
DX: O13.4 Gestational [pregnancy-induced] hypertension without significant proteinuria, complicating childbirth (principal); Z37.0 Single live birth; O69.81X0 Labor and delivery complicated by cord around neck, without compression, not applicable or unspecified; Z86.32 Personal history of gestational diabetes; Z3A.37 37 weeks gestation of pregnancy
CPT/HCPCS: 59025; 59050; 85025; 86780; 86850; 86900; 86901; 99221; J7120; A4216; G0378

== ENCOUNTER 2023-01-28 23:55 | Outpatient (CLI) | payer OTHER, SELFPAY ==
[2023-01-29] VITALS (14 sets, daily range): BP systolic 127–158; BP diastolic 66–94; PULSE 65–86; TEMP 36.3; O2SAT 99–100; BMI 25.7
--- NOTE | 2023-01-29 00:15 | NURSING ---
Addendum entered by Bess Rachel 01/29/23 00:51: pt BP at home 157/85 Original Note: pt reports waking up at home due to feeling like heart was racing, BP 154/ , pt also complains of dull headache pain /10 and some vision changes, pt reports attempting to take medication at home that did not help with headache pain (naproxen around 1900 and tylenol around 2200), pt denies epigastric pain at this time but reports intermittent nausea, RN to wait for preE labs to result and then notify provider of results and BP readings
--- NOTE | 2023-01-29 00:42 | NURSING ---
this RN attempted IV start x2 to obtain preE labs with no successful IV start, Lori Su attempted IV start x1 to obtain labwork, blood for labwork obtained through IV start at 0040 but IV start unsuccessful, will continue to monitor
[2023-01-29 00:55] LABS: Hematocrit 36.3 % (37-47); Hemoglobin 11.7 g/dL (12.0-15.0); Mean Corp Hgb Conc 32.2 g/dL (32-36); Mean Corpuscular Hgb 28.7 pg (27.0-32.0); Mean Platelet Vol. 11.1 fl (6.2-12.0); Platelet Count 193 K/mm3 (150-450); RBC Distribution Width CV 14.4 % (11.6-14.6); RBC Distribution Width SD 45.9 fl (35.1-43.9); Red Blood Count 4.08 M/mm3 (4.2-5.4); White Blood Count 12.4 K/mm3 (4.4-11.0)
[2023-01-29 00:59] LABS: Scan Indicated on CBC? Y/N NO
[2023-01-29 01:22] LABS: AST(SGOT) 31 U/L (15-37); Alanine Aminotransfer ALT/SGPT 13 U/L (13-56); Creatinine, Serum 0.64 mg/dL (0.55-1.02); Creatinine, Urine (random) < 13.00 mg/dL (NO RANGE EST.); EST Glomerular Filtration Rate 115 mL/min (>60); Est Glom Filt Rate - Afr Amer 139 mL/min (>60); Estimated Creatinine Clearance 101.66 ml/min; Protein, Urine (Random) 6.1 mg/dL (<11.9); Uric Acid 3.8 mg/dL (2.6-6.0)
[2023-01-29] MEDS: NIFEdipine 30 MG Tablet PO (01:48)
--- NOTE | 2023-01-29 02:12 | NURSING ---
report given to Kayy Espinal RN who is assuming care of pt at this time
[2023-01-29] MEDS: Acetaminophen 500 MG Tablet 1000 MG PO (05:17)
--- NOTE | 2023-01-29 07:49 | OB.TRI.HP_ITS ---
HPI - General General Date of Service: 01/29/23 HPI Narrative ANANYA SOSA, is a 32 F who presents to unit 1 day for elevated bp at home. She reports headache, heart palpitations and general feeling of fatigue and not feeling well. [facility] Medical History (Updated 01/29/23 @ 07:39 by Elena Parks CNM) Chronic hypertension Gestational diabetes Infertility Orthostatic syncope Home Medications docosahexaenoic acid 200 mg capsule ( DHA) mg PO 10/23/22 [History Last Taken Unknown] naproxen 500 mg tablet 500 mg PO BID PRN pain #30 tabs 01/27/23 [Rx Last Taken Unknown] nifedipine 30 mg tablet,extended release 24 hr (Procardia XL) 30 mg PO DAILY hypertension #30 tabs 01/29/23 [Rx Last Taken Unknown] Allergy/AdvReac Type Severity Reaction Status Date / Time No Known Allergies Allergy Verified 01/29/23 00:52 Family History Sister Diabetes type 1 Grandfather Diabetes type 2 Grandmother Multiple myeloma Surgical History H/O dilation and curettage Social History Smoking Status: Never smoker alcohol intake: never substance use type: does not use caffeine: Yes what type of physical activity do you participate in: walking frequency: 3-4 times per week seatbelt use: always do you feel safe at home: Yes additional social history: - Julian History 4 Elective abortions Hx Para 2 Spontaneous abortions 2 Hx # Term Pregnancies Ectopic pregnancies Hx # Pregnancies Multiple births # of living children 2 Past Pregnancies Del. Date Name GA/Weeks Outcome Route Bth Weight Infant Gen Labor Lgth Anesthesia Del Locatn Provider FOB 04/20/20 Ann Marie 39 live - full term 6lbs 6oz Female Dr. Roz Jordan 01/27/23 Azeb 37 live - full term Male epidu oralia [facility] Julian Delivery Date: 04/20/20 Last Updated by: Vane Wallsi Gestational diabetes Delivery Date: 01/27/23 Last Updated by: Elizabeth Matthew, RN see problem list for complications, and gestational hypertension. ROS Constitutional Constitutional: Reports systems reviewed and no addt'l complaints, except as documented, fatigue and headache(s) Cardiovascular Cardiovascular: Reports systems reviewed and no addt'l complaints, except as documented, fatigue, hypertension, lightheadedness and palpitations; Denies chest pain or dyspnea Respiratory/Chest Respiratory/Chest: Reports systems reviewed and no addt'l complaints, except as documented; Denies dyspnea or shortness of breath at rest Gastrointestinal Gastrointestinal: Reports systems reviewed and no addt'l complaints, except as documented Genitourinary Genitourinary: Reports systems reviewed and no addt'l complaints, except as documented Musculoskeletal Musculoskeletal: Reports systems reviewed and no addt'l complaints, except as documented Integumentary Integumentary: Reports systems reviewed and no addt'l complaints, except as documented Neurologic Neurologic: Reports systems reviewed and no addt'l complaints, except as documented Psychiatric Psychiatric: Reports systems reviewed and no addt'l complaints, except as documented Endocrine Endocrinology: Reports systems reviewed and no addt'l complaints, except as documented Hematologic/Lymphatic Hematologic/Lymphatic: Reports systems reviewed and no addt'l complaints, except as documented Physical Exam Const alert and oriented x3 Resp normal respiratory effort, no retractions, no use of accessory muscles and clear to auscultation bilaterally Cardio regular rate GI normal to inspection, nondistended, normoactive bowel sounds, soft to palpation and non-tender Extremity normal to inspection, full ROM, no calf tenderness and no pedal edema Skin no rashes or lesions noted and no wounds Neuro moves all extremities Assessment & Plan (1) Chronic hypertension: COMMENT: labile BP throughout PLAN: normal pre E labs start procardia 30xl daily monitor bp at home daily. call with bp of 150/90 or greater follow up in office in 2 weeks with bps Discussed assessment and plan of care with Dr Byrd and agrees with above plan Charges/Coding Visit Charges Office Visits / Consults: 14265 OV L3 Est
== END 2023-01-29 08:14 | disposition home or self-care (01) ==
LOC: WPOUT 23:58 → WP 23:59
PROVIDERS: Referring Provider Advanced Practice Midwife; Visit Provider Advanced Practice Midwife
DX: O99.892 Other specified diseases and conditions complicating childbirth (principal); R51.9 Headache, unspecified; O16.9 Unspecified maternal hypertension, unspecified trimester; O24.419 Gestational diabetes mellitus in pregnancy, unspecified control; Z3A.00 Weeks of gestation of pregnancy not specified
CPT/HCPCS: 82565; 82570; 84156; 84450; 84460; 84550; 85027; 99221; G0378

== ENCOUNTER → 2024-10-06 | Outpatient (CLI) | payer OTHER, SELFPAY ==
[2024-10-06 13:16] LABS: hCG Titer Quant., Serum 67281 mIU/mL (<9 non-preg)
[2024-10-10 15:07] LABS: Anti-Cardiolipin Ab, IgG, Qn < 9 GPL U/mL (0-14); Anti-Cardiolipin Ab, IgM, Qn < 9 MPL U/mL (0-12); Beta-2-Glycoprotein I IgA <9 (0-25); Beta-2-Glycoprotein I IgG <9 (0-20); Beta-2-Glycoprotein I IgM <9 (0-32); Dilute Russell Viper Venom 40.1 sec (0.0-47.0); Interpretation Comment: (.); PTT-LA 39.0 sec (0.0-43.5)
== END | disposition home or self-care (01) ==
LOC: BWCLAB 10:40
PROVIDERS: Referring Provider Advanced Practice Midwife; Visit Provider Advanced Practice Midwife
DX: N96 Recurrent pregnancy loss (principal)
CPT/HCPCS: 36415; 83036; 84443; 84702; 86146; 86147

== ENCOUNTER → 2024-10-08 | Outpatient (CLI) | payer OTHER, SELFPAY ==
--- OUTSIDE RECORDS SUMMARY | 2024-10-08 08:15 | XMS RPT_ITS | CCD ---
Author Organization [facility] Care Team Providers Care Fourth Hand Name Role Phone Blake Wells Unavailable Unavailable Dr. Cintia Donovan Attending Provider [phone] Care Physician, No Primary Primary Care Provider Unavailable Care Physician, No Primary Referring Provider Un available Oz RUG RENOVATOR, RUG RENOVATOR-Debora Piedra Attending Provider [phone] Aundrea Byrd Attending Provider 1( [phone]) Dr. Cintia Donovan Attending Provider [phone] Care Physician, No Primary Primary Care Provider Unavailable Care Physician, No Primary Referring Provider Un available Oz RUG RENOVATORJEYSON Attending Provider [phone] Dr. Aundrea Byrd Attending Provider 1( 30) Dr. Aundrea Byrd Admit Provider Dr. Aundrea Byrd Other Provider DANDRE Parks Attending Provider [phone] DANDRE Parks Referring Provider [phone] DANDRE Parks Other Provider [phone] MAST GENERAL OFFICE DISPATCHER-OTR VAN CDL TRUCK DRIVER, IKE Attending Unavailabl e MAST GENERAL OFFICE DISPATCHER-OTR VAN CDL TRUCK DRIVER, IKE Primary Care Unavailabl e Unavailable Primary Care Provider Unavailabl e HONORIO COFFEY Attending Unavailable HONORIO COFFEY Attending Unavailable Care Physician, No Primary Primary Care Provider Unavailable Care Physician, No Primary Referring Provider Un available Elena Parks CNM Attending Provider [phone] Elena Parks CNM Referring Provider [phone] Care Physician, No Primary Referring Unava ilable Care Physician, No Primary Primary Care Unava ilElena Tolentino Attending Unavailable Care Physician, No Primary Primary Care Unava ilable Dorothea Clinton NP Attending Unavailable Care Physician, No Primary Referring Unava ilable Care Physician, No Primary Primary Care Unava ilable Elena Parks Referring Unavailable Elena Parks Attending Unavailable Medications Current Medications Medication Drug Class(es) Dates Sig (Normalized) Sig (Original) nitrofurantoin, macrocrystals 25 mg / nitrofurantoin, monohydrate 75 mg oral capsule (2 sources) Nitrofuran Antibacterial Start: 08-21-2024 End: 08-26-2024 take 1 capsule by mouth twice daily nitrofurantoin monohydrate and macrocrystal (MACROBID) 100 mg capsule Indications: Acute cystitis without hematuria Take 1 capsule by mouth two times a day for 5 days. 10 capsule 08/21/2024 08/26/2024 Active Start: 03-27-2024 End: 04-01-2024 take 1 capsule by mouth twice daily nitrofurantoin monohydrate and macrocrystal (MACROBID) 100 mg capsule Take 1 capsule by mouth two times a day for 5 days. FOR 5 DAYS. 10 capsule 03/27/2024 04/01/2024 Active Pnv No.176-Pr-Za3-Dha-Epa-Fi sh 400 mcg-35 mg- 25 mg-5 mg tablet,chewable (1 source) Start: 09-22-2024 Pnv No.834-Pd-Jc7-Cmn-Nzg-Lnvh 400 mcg-35 mg- 25 mg-5 mg tablet,chewable Active {tbl} PO September 22, 2024 12:00am Prenatabs FA (17 sources) Start: 04-20-2020 take 1 tablet by mouth once daily Prenatabs FA Active 1 TABLET PO DAILY April 20, 2020 4:51am Start: 04-20-2020 End: 10-23-2022 Prenatabs FA Discontinued 1 {tbl} PO DAILY April 20, 2020 1:00am October 23, 2022 3:55pm Start: 04-20-2020 End: 10-23-2022 take 1 tablet by mouth once daily Prenatabs FA Discontinued 1 TABLET PO DAILY April 20, 2020 12:00am October 23, 2022 2:55pm Start: 04-20-2020 End: 10-23-2022 take 1 tablet by mouth once daily Prenatabs FA Discontinued 1 TABLET PO DAILY April 20, 2020 1:00am October 23, 2022 3:55pm Start: 04-20-2020 take 1 tablet by sandi th once daily Prenatabs FA Active 1 TABLET PO DAILY April 20, 2020 1:00am Start: 04-20-2020 take 1 tablet by sandi th once daily Prenatabs FA Active 1 TABLET PO DAILY April 20, 2020 12:00am progesterone 100 mg oral capsule (1 source) Progesterone Start: 09-05-2024 Progesterone Micronized (Prometrium) 100 mg capsule Active 200 mg VAGINAL AT BEDTIME 60 2 September 05, 2024 12:00am sertraline 100 mg oral tablet (5 sources) Serotonin Reuptake Inhibitor Start: 03-27-2024 take 1 tablet by mouth once daily sertraline (ZOLOFT) 100 mg tablet Take 1 tablet by mouth once daily. 90 tablet 03/27/2024 Active Start: 01-31-2023 End: 02-25-2023 take 1 tablet by mouth once daily Sertraline (Zoloft) 25 mg tablet Active 25 mg PO DAILY 30 February 25, 2023 10:24am Completed/Discontinued Medications Medication Drug Class(es) Dates Sig (Normalized) Sig (Original) aspirin 81 mg delayed release oral tablet (9 sources) Platelet Aggregation Inhibitor, Nonsteroidal Anti-inflammatory Drug Start: 10-08-2022 End: 10-23-2022 take 1 tablet by mouth once daily Aspirin 81 mg tablet,delayed release (DR/EC) Discontinued 81 mg PO DAILY October 08, 2022 12:00am October 23, 2022 3:55pm busPIRone hydrochloride 10 mg oral tablet (1 source) Start: 01-31-2023 End: 03-02-2023 take 1 tablet by mouth three times daily as needed for anxiety Buspirone 10 mg tablet Discontinued 10 mg PO THREE TIMES A DAY as needed for anxiety January 31, 2023 1:00am March 01, 2023 1:00am March 02, 2023 1:05am docosahexaenoic acid 200 mg oral capsule (9 sources) Start: 10-23-2022 End: 09-22-2024 Docosahexaenoic Acid ( Dha) 200 mg capsule Discontinued mg PO October 23, 2022 12:00am September 22, 2024 3:53pm drospirenone / Ethinyl Estradiol (1 source) Progestin, Estrogen Start: 12-12-2019 End: 03-27-2024 NORBERTO, 28, 3-0.02 mg per tablet TAKE 1 TABLET ONCE DAILY 84 tablet 12/12/2019 03/27/2024 Discontinued ferrous sulfate 325 mg oral tablet (16 sources) Start: 05-20-2021 End: 10-23-2022 take 1 tablet by mouth once daily Ferrous Sulfate 325 mg (65 mg iron) tablet Discontinued 325 mg PO DAILY 30 May 20, 2021 12:00am October 23, 2022 3:55pm labetalol hydrochloride 100 mg oral tablet (2 sources) beta-Adrenergic Valeriy Start: 02-22-2023 End: 03-27-2024 take 2 tablets by mouth twice daily Labetalol 100 mg tablet Discontinued 200 mg PO TWICE A DAY 60 February 22, 2023 4:38pm March 27, 2024 10:53am Start: 01-31-2023 End: 02-22-2023 take 1 tablet by mouth twice daily Labetalol 100 mg tablet Discontinued 100 mg PO TWICE A DAY 60 January 31, 2023 1:00am February 22, 2023 4:38pm naproxen 500 mg oral tablet (4 sources) Nonsteroidal Anti-inflammatory Drug Start: 01-27-2023 End: 03-03-2023 take 1 tablet by mouth twice daily as needed for pain Naproxen 500 mg tablet Discontinued 500 mg PO TWICE A DAY as needed for pain 30 January 27, 2023 1:00am March 03, 2023 12:44pm 24 hr NIFEdipine 30 mg extended release oral tablet (6 sources) Dihydropyridine Calcium Channel Valeriy Start: 03-03-2023 End: 03-27-2024 take 1 tablet by mouth once daily Nifedipine 30 mg tablet extended release Discontinued 30 mg PO DAILY 30 March 03, 2023 1:00am March 27, 2024 10:53am Start: 01-29-2023 End: 03-27-2024 take 1 tablet by mouth once daily Nifedipine (Procardia Xl) 30 mg tablet extended release 24hr Discontinued 60 mg PO DAILY 30 February 17, 2023 1:45pm March 27, 2024 10:53am Chronic hypertension Essential (primary) hypertension hypertension sulfamethoxazole 800 mg / trimethoprim 160 mg oral tablet (2 sources) Dihydrofolate Reductase Inhibitor Antibacterial, Sulfonamide Antimicrobial Start: 08-21-2024 End: 08-21-2024 take 1 tablet by mouth twice daily sulfamethoxazole-trimethoprim (BACTRIM DS) 800-160 mg per tablet Indications: Acute cystitis without hematuria Take 1 tablet by mouth two times a day for 3 days. 6 tablet 08/21/2024 08/21/2024 Discontinued (Course of therapy completed) Problems Active Problems Problem Classification Problem Date Documented Date Episodic/Chronic Anxiety disorders (1 source) Anxiety; Translations: [Anxiety disorder, unspecified] 09-22-2024 Chronic Diabetes or abnormal glucose tolerance complicating ; childbirth; or the puerperium (20 sources) History of gestational diabetes mellitus; Translations: [Personal history of gestational diabetes] 11-19-2022 Episodic Comment on above: 1st Essential hypertension (5 sources) Hypertensive disorder; Translations: [Essential (primary) hypertension] 01-29-2023 Chronic Comment on above: labile BP throughout ; stable no meds Other circulatory disease (16 sources) Syncope due to orthostatic hypotension; Translations: [Orthostatic hypotension] 05-20-2021 Episodic Other circulatory disease (3 sources) Orthostatic hypotension; Translations: [Orthostatic hypotension] Episodic Other circulatory disease (7 sources) Labile blood pressure; Translations: [Other specified symptoms and signs involving the circulatory and respiratory systems] 01-11-2023 Episodic Other circulatory disease (20 sources) Other specified symptoms and signs involving the circulatory and respiratory systems; Translations: [Elevated blood pressure reading without diagnosis of hypertension] 01-11-2023 Episodic Other complications of (1 source) High risk ; Translations: [Supervision of high risk , unspecified, unspecified trimester] 09-22-2024 Episodic Comment on above: , ELTON 05/12/25, [place] Jesus, Azeb Julian Other female genital disorders (16 sources) Abnormal vaginal bleeding; Translations: [Abnormal uterine and vaginal bleeding, unspecified] 05-20-2021 Chronic Other female genital disorders (3 sources) Abnormal uterine and vaginal bleeding, unspecified; Translations: [Other specified noninflammatory disorders of vagina] Chronic Other female genital disorders (6 sources) H/O: normal delivery; Translations: [Status post normal vaginal delivery] 01-27-2023 Episodic Other female genital disorders (2 sources) Recurrent miscarriage; Translations: [Recurrent loss] 10-06-2024 Episodic Other female genital disorders (1 source) Recurrent loss; Translations: [Recurrent loss] Onset: 10-06-2024 Episodic Other and delivery including normal (20 sources) Normal ; Translations: [Encounter for supervision of normal , unspecified, unspecified trimester] 11-19-2022 Episodic Comment on above: PRR ELTON 02/17/23 Boy PC Ann Marie : Julian declined NIUPT & Car rier testing Declined NIPT/caty r/afp testing. Anatomy US NL. gbs neg Residual codes; unclassified (1 source) Medical care unavailable; Translations: [Procedure and treatment not carried out for other reasons] 08-21-2024 Episodic Residual codes; unclassified (1 source) Procedure and treatment not carried out for other reasons; Translations: [Treatment not available] Onset: 08-21-2024 Episodic Residual codes; unclassified (1 source) H/O: miscarriage; Translations: [Personal history of other complications of , childbirth and the puerperium] 03-27-2024 Episodic Comment on above: used vag progesteron e with both pregnancies. Residual codes; unclassified (1 source) History of gestational hypertension; Translations: [Personal history of other complications of , childbirth and the puerperium] 09-22-2024 Episodic Comment on above: 2nd Spontaneous (19 sources) Miscarriage; Translations: [Complete or unspecified spontaneous without complication] Episodic Unclassified (1 source) Unknown / UNK(Unknown) Onset: 02-16-2018 Urinary tract infections (3 sources) Acute cystitis; Translations: [Acute cystitis with hematuria] Onset: 08-21-2024 03-27-2024 Episodic Past or Other Problems Problem Classification Problem Date Documented Da te Episodic/Chronic Unclassified (1 source) SORE THROAT AND CONGESTION Onset: 02-16-2018 Results Test Name Value Interpretation Reference Range Facility Hemoglobin A1con 10-06-2024 HbA1c (Bld) [Mass fraction] 5.3 % Normal <=5.6 [facility] Comment on above: Result Comment: Norm al < 5.7 % Prediabetic 5.7 - 6.4 % Diabetic >or= 6.5 % Please note range changes. Performed By: #### L 501.9594, L700.8000, L501.9985 #### [facility] [address] [place], [address] Consultant Teacher Office Visit Reporton 10-06-2024 Consultant Teacher Office Visit Report [facility]'s [address], [address] [place] [address] OFFICE VISIT Date of Service: 10/06/24 MR#: [id number] Acct: [id number] Name: ANNAYA MG Rep #: [id number] : 1990 Provider: DANDRE Callejas ams Age/Sex: 33/F [place] [facility] [place]: Signed Intake Vital Signs 03/27/24 09:53 10/06/24 10:11 Height 5 ft 2 in 5 ft 2 in Weight: 126 lb 4 oz BMI 23.1 BP 151/81 H Intake Visit Reasons: Heartbeat check Chief Complaint: heart beat Check Sea Captain Required: No Is patient in pain?: No Allergies No Known Allergies Allergy (Verified 10/06/24 10:09) Medications ???Medication ???Instructions ???Recorded ???Confirmed ???Type sertraline 25 mg tablet (Zoloft) 25 mg PO DAILY #30 tabs 02/25/23 0 10/06/24 Rx progesterone micronized 100 mg 200 mg (2 x 100 mg) vaginal QHS 10/06/24 Rx capsule (Prometrium) #60 caps PNV 153-FA 400 mcg-om3 35 mg-dha tab PO 09/22/24 10/06/24 History 25 mg-epa 5 mg-fish oil chew tablet Post menopausal: No Patient : Yes PFSH Medical History History of gestational diabetes Infertility Chronic hypertension Orthostatic syncope Surgical History [place] teeth extracted H/O dilation and curettage Family History Sister Diabetes type 1 Grandfather Diabetes Paternal type 2 Grandmother Multiple myeloma Maternal Social History adopted: No household members: spouse and children housing: house number of children: 2 current occupational status: 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[employer] pets and animals: Yes (Avoid litterbox) pets and animals: cat(s) history of recent travel: Yes ([place]) out of state: Yes out of country: No sexually active: Yes Smoking Status: Never smoker alcohol intake: current alcohol intake frequency: holidays/special occasions only details: Not while substance use type: does not use well-balanced diet: daily or most days caffeine: No eating out: 1-3 times/week during the past year weight has: remained stable what type of physical activity do you participate in: walking frequency: 3-4 times per week duration: 15-30 minutes/day bill/presybeterian: [employer] seatbelt use: always do you feel safe at home: Yes additional social history: - Julian- 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 She was having significant nausea previously and woke up this morning without it. She has a history of SAB and reports this is how she felt previously. positive test on 09/07. US showed gestational sac at 7.4 weeks. YS present but no pole noted. plan for HCG x 2, TSH, APL panel. Female Reproductive History Last Menstrual Period: 08/05/24 Cycle Length: 21-35 History 5 Elective abortions Hx Para 2 Spontaneous abortions 2 Hx # Term Pregnancies Ectopic pregnancies Hx # Pregnancies Multiple births # of living children 2 Past Pregnancies Del. Date Name GA/Weeks Outcome Route Bth Weight Infant Gen Labor Lgth Anesthesia Del Locatn Provider FOB 04/20/20 Ann Marie 39 live - full term 6lbs 6oz Female epidural Dr Jorgito Jordan 01/27/23 Azeb 37 live - full term 6lbs 2oz Male epidural [facility] Garfield Jordan Delivery Date: 04/20/20 Last Updated by: Vane Wallis Gestational diabetes Delivery Date: 01/27/23 Last Updated by: Elizabeth Castro, RN see problem list for complications, and gestational hypertension. ROS Const Constitutional: Reports system reviewed and no additional complaints, except as documented Cardio Card: Reports system reviewed and no additional complaints, except as documented Resp Resp: Reports system reviewed and no additional complaints, except as documented GI GI: Reports system reviewed and no additional complaints, except as documented : Reports system reviewed and no additional complaints, except as documented; Denies difficulty voiding, dysuria or urinary frequency Skin Skin/Breast: Reports system reviewed and no additional complaints, except as documented Neuro Neuro: Reports system reviewed and no additional complaints, except as documented Psych Psych: Reports system reviewed and no additional complaints, except as documented; Denies anhedonia, anxiety or depression Exam Const General: cooperative, healthy appearing, comfortable and no acute distress Orientation: alert, awake and oriented x3 Resp Effort Inspection: normal respiratory effo (more content not included)... Normal [facility] Thyroid Stim Hormone (TSH)on 10-06-2024 TSH 2.520 uIU/mL Normal 0.300-4.200 [facility] Comment on above: Performed By: #### L [id number], L700.8000, L501.9985 #### [facility] [address] [facility] [place], [place], [address] hCG Titer Quant., Serumon HCG QUANT. 19581 mIU/mL High <9 non-preg [facility] Comment on above: Result Comment: Gest ational Age 0.2-1 Week: 5-50 mIU/mL 1-2 Weeks: 50-500 mIU/mL 2-3 Weeks: 100-5000 mIU/mL 3-4 Weeks: 500-10,000 mIU/mL 4-5 Weeks:1000-50,000 mIU/mL 5-6 Weeks: 10,000-100,000 mIU/mL 6-8 Weeks: 15,000-200,000 mIU/mL 2-3 Months:10,000-100,000 mIU/mL Performed By: #### L [id number], L700.8000, L501.9985 #### [facility] [address] [place], [address] Consultant Teacher Office Visit Reporton 03-27-2024 Consultant Teacher Office Visit Report [facility]'s [address], [address] [place] [address] OFFICE VISIT Date of Service: 03/27/24 MR#: [id number] Acct: [id number] Name: ANANYA MG Rep #: [id number] : 1990 Provider: JEYSON cagle Age/Sex: 33/F [place] [facility] [place]: Signed Intake Vital Signs 03/13/24 08:27 03/27/24 09:48 03/27/24 09:53 Height 5 ft 2 in 5 ft 2 in 5 ft 2 in Weight: 128 lb 4 oz BMI 23.4 BP 132/80 H 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) Chief Complaint: Annual Sea Captain Required: No Is patient in pain?: No Allergies No Known Allergies Allergy (Verified 03/27/24 09:48) Medications ???Medication ???Instructions ???Recorded ???Confirmed ???Type docosahexaenoic acid 200 mg mg PO 10/23/22 03/27/24 History capsule ( DHA) sertraline 25 mg tablet (Zoloft) 25 mg PO DAILY #30 tabs 02/25/23 0 03/27/24 Rx Is last menstrual period known: Yes Last Menstrual Period: 03/14/24 Post menopausal: No Patient : No : No PFSH Medical History (Updated 03/27/24 @ 10:05 by Dorothea Clinton NP, JEYSON) History of gestational diabetes Infertility Chronic hypertension Orthostatic syncope Surgical History H/O dilation and curettage Family History Sister Diabetes type 1 Grandfather Diabetes type 2 Grandmother Multiple myeloma Social History Smoking Status: Never smoker alcohol intake: never substance use type: does not use caffeine: Yes what type of physical activity do you participate in: walking frequency: 3-4 times per week seatbelt use: always do you feel safe at home: Yes additional social history: - Julian History 4 Elective abortions Hx Para 2 Spontaneous abortions 2 Hx # Term Pregnancies Ectopic pregnancies Hx # Pregnancies Multiple births # of living children 2 Past Pregnancies Del. Date Name GA/Weeks Outcome Route Bth Weight Infant Gen Labor Lgth Anesthesia Del Locatn Provider FOB 04/20/20 Ann Marie 39 live - full term 6lbs 6oz Female Dr. Roz Jordan 01/27/23 Azeb 37 live - full term 6lbs 2oz Male epidural [facility] J Sruthi Julian Delivery Date: 04/20/20 Last Updated by: Vane Wallis Gestational diabetes Delivery Date: 01/27/23 Last Updated by: Elizabeth Castro RN see problem list for complications, and gestational hypertension. HPI Encounter for routine gynecological examination Details: ANANYA MG is a 33 year old who presents for annual exam. Denies concerns. May consider end of this year. Last PAP: 2021 History of abnormal PAP: no Last mammogram: age 42 Other preventative health care screenings: K Mast/Hooper Female Reproductive History Last Menstrual Period: 03/14/24 Cycle Length: 21-35 Questions: metorrhagia: No, sexually active: Yes, dyspareunia: No and PCB: No ROS Const Constitutional: Denies fatigue, weight gain or weight loss Cardio Card: Denies chest pain Resp Resp: Denies cough or dyspnea on exertion GI GI: Denies abdominal pain, bloating, change in stool character, constipation or vomiting : Reports as per HPI; Denies difficulty voiding, pelvic pain, urinary frequency, urinary incontinence, urinary urgency, vaginal discharge or vaginal pruritus Exam Const General: cooperative, healthy appearing, no acute distress and well developed Orientation: alert, oriented to person and oriented to place [facility] Head: normal to inspection Neck Neck: normal visual inspection Thyroid: thyroid normal Lymphatic: no lymphadenopathy noted Chest Breast inspection: normal inspection of the breasts and normal inspection of the axillae Breast palpation: normal palpation of the breasts, normal palpation of the axillae and no axillary lymphadenopathy Resp Effort Inspection: normal respiratory effort GI Palpation: soft, no masses and nontender Rectal Exam: deferred External Female Exam: normal external appearance and normal appearance of the urethra Urethra: normal appearance of the urethra and normal palpation Speculum Exam - Vagina: normal appearance of the vagina and normal vaginal discharge Speculum Exam - Cervix: normal appearance of the cervix Bimanual Exam- Vagina Uterus: normal bimanual exam, uterine size normal, uterine shape normal and non-tender Bimanual Exam- Adnexa, other: normal adnexae, no masses, normal and non-tender Pelvic Support: normal Neuro General: patient alert and patient oriented x3 Psych Affect: normal affect Coding Level of Care Code Off vis,est,prev 18-39yrs Farzaneh (more content not included)... Normal [facility] [id number] 09-18-2023 FREDY-65 <5.0 Normal 0.0-5.0 [facility] ([place]) Comment on above: Result Comment: Perf ormed At: [address] [id number] Adam Lara MD Ph:[phone] Performed By: #### 1 [id number], [id number], LIPID #### Sonny [address] [address] ISLETon 09-17-2023 Panc Islet Cell Ab Negative Normal Neg:<1:1 [facility] ([place]) Comment on above: Result Comment: Perf ormed At: [address] [id number] Adam Lara MD Ph:[phone] Performed By: #### 1 [id number], [id number], LIPID #### Sonny V[address] [address] LIPIDon 09-15-2023 Cholesterol [Mass/Vol] 150 mg/dL Normal 0-200 [facility] ([place]) Comment on above: Result Comment: Chol esterol Reference Interval: Less than 200 Desirable 200-239 Borderline high risk 240 and above High risk Performed By: #### 1 [id number], [id number], LIPID #### [place] [place], [place] [address] Cholesterol in HDL [Mass/Vol] 61 mg/dL High 40-60 [facility] ([place]) Comment on above: Performed By: #### 1 [id number], [id number], LIPID #### Sonny Hooper [address] [place], [place] [address] Cholesterol in LDL [Mass/Vol] 80 mg/dL Normal 0-130 [facility] ([place]) Comment on above: Performed By: #### 1 [id number], [id number], LIPID #### Sonny Hooper [address] [place], [place] [address] Triglyceride [Mass/Vol] 44 mg/dL Normal 0-150 [facility] ([place]) Comment on above: Result Comment: Trig lyceride Reference Interval: Less than 150 Normal 150-199 Borderline high risk 200-499 High risk 500 or higher Very high risk Performed By: #### 1 [id number], [id number], LIPID #### Sonny [address] [place], [place] [address] Basophil percentageOrdered B y: Elena Parks on 01-29-2023 WBC (Bld) [#/Vol] 12.4 10*3/uL 4.4-11.0 [facility] Blood erythrocytes count (nu mber/volume)Ordered By: Elena Parks on 01-29-2023 RBC (Bld) [#/Vol] 4.08 10*6/uL 4.2-5.4 [facility] Blood hemoglobin measurement (mass/volume)Ordered By: Elena Parks on 01-29-2023 Hemoglobin (Bld) [Mass/Vol] 11.7 g/dL 12.0-15.0 [facility] Blood platelet mean volumeOr dered By: Elena Parks on 01-29-2023 Platelet mean volume (Bld) [Entitic vol] 11.1 fL 6.2-12.0 [facility] Determination of erythrocyte mean corpuscular volume (MCV)Ordered By: Elena Parks on 01-29-2023 MCV (RBC) [Entitic vol] 89.0 fL 81-99 [facility] Hematocrit Auto (Bld) [Volum e fraction]Ordered By: Elena Parks on 01-29-2023 Hematocrit (Bld) [Volume fraction] 36.3 % 37-47 [facility] Laboratory - Chemistry and C hemistry - challengeOrdered By: Elena Parks on 01-29-2023 ALT [Catalytic activity/Vol] 13 U/L 13-56 [facility] - Hematology and Cell countsOrdered By: Elena Parks on 01-29-2023 Erythrocyte distribution width (RBC) [Entitic vol] 45.9 fL 35.1-43.9 [facility] Erythrocyte distribution width (RBC) [Ratio] 14.4 % 11.6-14.6 [facility] MCH (RBC) [Entitic mass] 28.7 pg 27.0-32.0 [facility] MCHC Auto (RBC) [Mass/Vol]Or dered By: Elena Parks on 01-29-2023 MCHC (RBC) [Mass/Vol] 32.2 g/dL [facility] No Panel InformationOrdered By: Elena Parks on 01-29-2023 Estimated Creatinine Clearance Calc 101.66 ml/min [facility] Estimated GFR (MDRD) Amer 139 mL/min >60 [facility] Comment on above: GFR Calc Estimated GFR (MDRD) Non-Af Amer 115 mL/min >60 [facility] Comment on above: Non- GFR Calc Platelets bldOrdered By: Raz Parks on 01-29-2023 Platelets (Bld) [#/Vol] 193 10*3/uL 150-450 [facility] Serum or plasma creatinine m easurement (mass/volume)Ordered By: Elena Parks on 01-29-2023 Creatinine [Mass/Vol] 0.64 mg/dL 0.55-1.02 [facility] Comment on above: The validity of the calculated GFR & GFRAA in patients over 70 years has not been determined. Clinical correlation is essential. Serum or plasma uric acid me asurement (mass/volume)Ordered By: Elena Parks on 01-29-2023 Urate [Mass/Vol] 3.8 mg/dL 2.6-6.0 [facility] Comment on above: The drugs N-Acetylcy steine and Metamizole may falsely depress this assay. Thin prep Papanicolaou smear with manual screeningOrdered By: Elena Parks on 01-29-2023 Thin prep Papanicolaou smear with manual screening 31 U/L [facility] Comment on above: Moderate Hemolysis, Result may be falsely increased. Urine creatinine measurement (mass/volume)Ordered By: Elena Parks on 01-29-2023 Creatinine (U) [Mass/Vol] mg/dL NO RANGE EST. [facility] Urine protein measurement (m ass/volume)Ordered By: Elena Parks on 01-29-2023 Protein (U) [Mass/Vol] 6.1 mg/dL 0.0-11.8 [facility] Urine protein/creatinine mas s ratioOrdered By: Elena Parks on 01-29-2023 Protein/Creatinine (U) [Mass ratio] TNP [facility] Comment on above: Test not performed Absolute lymphocyte countOrd ered By: Aundrea Riley on 01-27-2023 Lymphocytes Auto (Unsp spec) [#/Vol] 1.38 10*3/uL 0.83-4.51 [facility] Basophil percentageOrdered B y: Aundrea Riley on 01-27-2023 Basophils/100 WBC (Bld) 0.4 % 0-1 [facility] Eosinophils/100 WBC (Bld) 0.3 % 0-5 [facility] Neutrophils (Bld) [#/Vol] 7.1 10*3/uL 2.0-7.7 [facility] Neutrophils/100 WBC (Bld) 77.2 % 47-70 [facility] WBC (Bld) [#/Vol] 9.2 10*3/uL 4.4-11.[address] [facility] Blood erythrocytes count (nu mber/volume)Ordered By: Aundrea Riley on 01-27-2023 RBC (Bld) [#/Vol] 4.28 10*6/uL 4.2-5.4 [facility] Blood hemoglobin measurement (mass/volume)Ordered By: Aundrea Riley on 01-27-2023 Hemoglobin (Bld) [Mass/Vol] 12.1 g/dL 12.0-15.0 [facility] Blood lymphocytes/100 leukoc ytesOrdered By: Aundrea Riley on 01-27-2023 Lymphocytes/100 WBC (Bld) 15.0 % 19-41 [facility] Blood monocytes/100 leukocyt esOrdered By: Aundrea Riley on 01-27-2023 Monocytes/100 WBC (Bld) 6.4 % 0-10 [facility] Blood platelet mean volumeOr dered By: Aundrea Riley on 01-27-2023 Platelet mean volume (Bld) [Entitic vol] 11.2 fL 6.2-12.0 [facility] Determination of erythrocyte mean corpuscular volume (MCV)Ordered By: Aundrea Riley on 01-27-2023 MCV (RBC) [Entitic vol] 86.9 fL 81-99 [facility] Hematocrit Auto (Bld) [Volum e fraction]Ordered By: Aundrea Riley on 01-27-2023 Hematocrit (Bld) [Volume fraction] 37.2 % 37-47 [facility] Laboratory - Hematology and Cell countsOrdered By: Aundrea Riley on 01-27-2023 Erythrocyte distribution width (RBC) [Entitic vol] 44.1 fL 35.1-43.9 [facility] Erythrocyte distribution width (RBC) [Ratio] 14.2 % 11.6-14.6 [facility] Immature granulocytes/100 WBC (Bld) 0.700 % 0.0-0.9 [facility] Comment on above: IG% - Immature Granu locytes (promyelocytes, myelocytes and metamyelocytes) > 1% indicates that a LEFT SHIFT is Present. MCH (RBC) [Entitic mass] 28.3 pg 27.0-32.0 [facility] Nucleated RBC/100 WBC (Bld) [Ratio] 0 % 0-5 [facility] MCHC Auto (RBC) [Mass/Vol]Or dered By: Aundrea Riley on 01-27-2023 MCHC (RBC) [Mass/Vol] 32.5 g/dL 32-36 [facility] Platelets bldOrdered By: Teresita Riley on 01-27-2023 Platelets (Bld) [#/Vol] 200 10*3/uL 150-450 [facility] Serum Treponema species anti body detectionOrdered By: Aundrea Riley on 01-27-2023 Treponema sp Ab Ql (S) Non-Reactive [facility] Absolute lymphocyte countOrd ered By: Cintia Donovan on 01-25-2023 Lymphocytes Auto (Unsp spec) [#/Vol] 2.05 10*3/uL 0.83-4.51 [facility] Basophil percentageOrdered B y: Cintia Donovan on 01-25-2023 Basophils/100 WBC (Bld) 0.5 % 0-1 [facility] Bilirubin [Mass/Vol] 0.30 mg/dL 0.20-1.00 [facility] Comment on above: For patients on eltr ombopag therapy, use of Dimension Marathon TBIL is not recommended. Chloride [Moles/Vol] 104 mmol/L 98-107 [facility] Eosinophils/100 WBC (Bld) 0.6 % 0-5 [facility] Glucose [Mass/Vol] 80 mg/dL 74-[address] [facility] Neutrophils (Bld) [#/Vol] 7.7 10*3/uL 2.0-7.7 [facility] Neutrophils/100 WBC (Bld) 72.1 % 47-70 [facility] Potassium [Moles/Vol] 3.8 mmol/L 3.5-5.1 [facility] Protein [Mass/Vol] 7.3 g/dL 6.4-8.[address] [facility] Sodium [Moles/Vol] 134 mmol/L 136-[address] [facility] WBC (Bld) [#/Vol] 10.6 10*3/uL 4.4-11.0 [facility] Blood erythrocytes count (nu mber/volume)Ordered By: Cintia Donovan on 01-25-2023 RBC (Bld) [#/Vol] 4.73 10*6/uL 4.2-5.4 [facility] Blood hemoglobin measurement (mass/volume)Ordered By: Cintia Donovan on 01-25-2023 Hemoglobin (Bld) [Mass/Vol] 13.4 g/dL 12.0-15.0 [facility] Blood lymphocytes/100 leukoc ytesOrdered By: Cintia Donovan on 01-25-2023 Lymphocytes/100 WBC (Bld) 19.3 % 19-41 [facility] Blood monocytes/100 leukocyt esOrdered By: Cintia Donovan on 01-25-2023 Monocytes/100 WBC (Bld) 7.1 % 0-10 [facility] Blood platelet mean volumeOr dered By: Cintia Donovan on 01-25-2023 Platelet mean volume (Bld) [Entitic vol] 10.9 fL 6.2-12.0 [facility] Determination of erythrocyte mean corpuscular volume (MCV)Ordered By: Cintia Donovan on 01-25-2023 MCV (RBC) [Entitic vol] 88.4 fL 81-99 [facility] Hematocrit Auto (Bld) [Volum e fraction]Ordered By: Cintia Donovan on 01-25-2023 Hematocrit (Bld) [Volume fraction] 41.8 % 37-47 [facility] Laboratory - Chemistry and C hemistry - challengeOrdered By: Cintia Donovan on 01-25-2023 ALP [Catalytic activity/Vol] 228 U/L 45-117 [facility] ALT [Catalytic activity/Vol] 13 U/L 13-56 [facility] CO2 [Moles/Vol] 25.0 mmol/L 21.0-32.0 [facility] Globulin (S) [Mass/Vol] 4.4 g/dL 2.2-4.2 [facility] Urea nitrogen/Creatinine [Mass ratio] 11.0 mg/mg 10-20 [facility] Laboratory - Hematology and Cell countsOrdered By: Cintia Donovan on 01-25-2023 Erythrocyte distribution width (RBC) [Entitic vol] 45.1 fL 35.1-43.9 [facility] Erythrocyte distribution width (RBC) [Ratio] 14.1 % 11.6-14.6 [facility] Immature granulocytes/100 WBC (Bld) 0.400 % 0.0-0.9 [facility] Comment on above: IG% - Immature Granu locytes (promyelocytes, myelocytes and metamyelocytes) > 1% indicates that a LEFT SHIFT is Present. MCH (RBC) [Entitic mass] 28.3 pg 27.0-32.0 [facility] Nucleated RBC/100 WBC (Bld) [Ratio] 0 % 0-5 [facility] MCHC Auto (RBC) [Mass/Vol]Or dered By: Cintia Donovan on 01-25-2023 MCHC (RBC) [Mass/Vol] 32.1 g/dL 32-36 [facility] No Panel InformationOrdered By: Cintia Donovan on 01-25-2023 Estimated GFR (MDRD) Amer 141 mL/min >60 [facility] Comment on above: GFR Calc Estimated GFR (MDRD) Non-Af Amer 117 mL/min >60 [facility] Comment on above: Non- GFR Calc Platelets bldOrdered By: Maksim Donovan on 01-25-2023 Platelets (Bld) [#/Vol] 201 10*3/uL 150-450 [facility] Serum or plasma albumin wilfrido urement (mass/volume)Ordered By: Cintia Donovan on 01-25-2023 Albumin [Mass/Vol] 2.9 g/dL 3.2-5.[address] [facility] Serum or plasma albumin/glob ulin mass ratioOrdered By: Cintia Donovan on 01-25-2023 Albumin/Globulin [Mass ratio] 0.7 {ratio} 0.9-2.4 [facility] Serum or plasma calcium wilfrido urement (mass/volume)Ordered By: Cintia Donovan on 01-25-2023 Calcium [Mass/Vol] 9.1 mg/dL 8.5-10.[address] [facility] Serum or plasma creatinine m easurement (mass/volume)Ordered By: Cintia Donovan on 01-25-2023 Creatinine [Mass/Vol] 0.64 mg/dL 0.55-1.02 [facility] Comment on above: The validity of the calculated GFR & GFRAA in patients over 70 years has not been determined. Clinical correlation is essential. Serum or plasma urea nitroge n measurement (mass/volume)Ordered By: Cintia Donovan on 01-25-2023 Urea nitrogen [Mass/Vol] 7 mg/dL 7-18 [facility] Thin prep Papanicolaou smear with manual screeningOrdered By: Cintia Donovan on 01-25-2023 Thin prep Papanicolaou smear with manual screening 15 U/L 15-37 [facility] Thin prep Papanicolaou smear with manual screening 5 5-15 [facility] Urine creatinine measurement (mass/volume)Ordered By: Cintia Donovan on 01-25-2023 Creatinine (U) [Mass/Vol] 19.10 mg/dL NO RANGE EST. [facility] Urine protein measurement (m ass/volume)Ordered By: Cintia Donovan on 01-25-2023 Protein (U) [Mass/Vol] mg/dL 0.0-11.8 [facility] Urine protein/creatinine mas s ratioOrdered By: Cintia Donovan on 01-25-2023 Protein/Creatinine (U) [Mass ratio] TNP [facility] Comment on above: Test not performed Laboratory - Chemistry and C hemistry - challengeon 01-21-2023 Glucose Ql (U) Negative [facility] Laboratory - Urinalysison Protein Ql (U) Negative [facility] Laboratory - Chemistry and C hemistry - challengeon 01-18-2023 Glucose Ql (U) Negative [facility] Laboratory - Urinalysison Protein Ql (U) Negative [facility] No Panel InformationOrdered By: Aundrea Riley on 01-18-2023 Group B Streptococcus Culture Group B Beta Streptococcus is not isolated. [facility] Absolute lymphocyte countOrd ered By: Aundrea Riley on 01-11-2023 Lymphocytes Auto (Unsp spec) [#/Vol] 1.76 10*3/uL 0.83-4.51 [facility] Basophil percentageOrdered B y: Aundrea Riley on 01-11-2023 Basophils/100 WBC (Bld) 0.3 % 0-1 [facility] Bilirubin [Mass/Vol] 0.20 mg/dL 0.20-1.00 [facility] Comment on above: For patients on eltr ombopag therapy, use of Dimension Marathon TBIL is not recommended. Chloride [Moles/Vol] 104 mmol/L 98-107 [facility] Eosinophils/100 WBC (Bld) 0.2 % 0-5 [facility] Glucose [Mass/Vol] 86 mg/dL 74-[address] [facility] Neutrophils (Bld) [#/Vol] 7.5 10*3/uL 2.0-7.7 [facility] Neutrophils/100 WBC (Bld) 74.8 % 47-70 [facility] Potassium [Moles/Vol] 3.7 mmol/L 3.5-5.1 [facility] Protein [Mass/Vol] 7.2 g/dL 6.4-8.[address] [facility] Sodium [Moles/Vol] 137 mmol/L 136-[address] [facility] WBC (Bld) [#/Vol] 10.1 10*3/uL 4.4-11.0 [facility] Blood erythrocytes count (nu mber/volume)Ordered By: Aundrea Riley on 01-11-2023 RBC (Bld) [#/Vol] 4.61 10*6/uL 4.2-5.4 [facility] Blood hemoglobin measurement (mass/volume)Ordered By: Aundrea Riley on 01-11-2023 Hemoglobin (Bld) [Mass/Vol] 13.0 g/dL 12.0-15.0 [facility] Blood lymphocytes/100 leukoc ytesOrdered By: Aundrea Riley on 01-11-2023 Lymphocytes/100 WBC (Bld) 17.5 % 19-41 [facility] Blood monocytes/100 leukocyt esOrdered By: Aundrea Riley on 01-11-2023 Monocytes/100 WBC (Bld) 6.6 % 0-10 [facility] Blood platelet mean volumeOr dered By: Aundrea Riley on 01-11-2023 Platelet mean volume (Bld) [Entitic vol] 11.0 fL 6.2-12.0 [facility] Determination of erythrocyte mean corpuscular volume (MCV)Ordered By: Aundrea Riley on 01-11-2023 MCV (RBC) [Entitic vol] 87.9 fL 81-99 [facility] Hematocrit Auto (Bld) [Volum e fraction]Ordered By: Aundrea Rilye on 01-11-2023 Hematocrit (Bld) [Volume fraction] 40.5 % 37-47 [facility] Laboratory - Chemistry and C hemistry - challengeOrdered By: Aundrea Riley on 01-11-2023 ALP [Catalytic activity/Vol] 202 U/L 45-117 [facility] ALT [Catalytic activity/Vol] 12 U/L 13-56 [facility] CO2 [Moles/Vol] 27.0 mmol/L 21.0-32.0 [facility] Globulin (S) [Mass/Vol] 4.3 g/dL 2.2-4.2 [facility] Urea nitrogen/Creatinine [Mass ratio] 13.3 mg/mg 10-20 [facility] Laboratory - Chemistry and C hemistry - challengeon 01-11-2023 Glucose Ql (U) Negative [facility] Laboratory - Hematology and Cell countsOrdered By: Aundrea Riley on 01-11-2023 Erythrocyte distribution width (RBC) [Entitic vol] 42.5 fL 35.1-43.9 [facility] Erythrocyte distribution width (RBC) [Ratio] 13.3 % 11.6-14.6 [facility] Immature granulocytes/100 WBC (Bld) 0.600 % 0.0-0.9 [facility] Comment on above: IG% - Immature Granu locytes (promyelocytes, myelocytes and metamyelocytes) > 1% indicates that a LEFT SHIFT is Present. MCH (RBC) [Entitic mass] 28.2 pg 27.0-32.0 [facility] Nucleated RBC/100 WBC (Bld) [Ratio] 0 % 0-5 [facility] Laboratory - Urinalysison Protein Ql (U) Negative [facility] MCHC Auto (RBC) [Mass/Vol]Or dered By: Aundrea Riley on 01-11-2023 MCHC (RBC) [Mass/Vol] 32.1 g/dL 32-36 [facility] No Panel InformationOrdered By: Aundrea Riley on 01-11-2023 Estimated GFR (MDRD) Amer 131 mL/min >60 [facility] Comment on above: GFR Calc Estimated GFR (MDRD) Non-Af Amer 108 mL/min >60 [facility] Comment on above: Non- GFR Calc Platelets bldOrdered By: Teresita Riley on 01-11-2023 Platelets (Bld) [#/Vol] 230 10*3/uL 150-450 [facility] Serum or plasma albumin wilfrido urement (mass/volume)Ordered By: Aundrea Riley on 01-11-2023 Albumin [Mass/Vol] 2.9 g/dL 3.2-5.[address] [facility] Serum or plasma albumin/glob ulin mass ratioOrdered By: Aundrea Riley on 01-11-2023 Albumin/Globulin [Mass ratio] 0.7 {ratio} 0.9-2.4 [facility] Serum or plasma calcium wilfrido urement (mass/volume)Ordered By: Aundrea Riley on 01-11-2023 Calcium [Mass/Vol] 8.7 mg/dL 8.5-10.[address] [facility] Serum or plasma creatinine m easurement (mass/volume)Ordered By: Aundrea Riley on 01-11-2023 Creatinine [Mass/Vol] 0.68 mg/dL 0.55-1.02 [facility] Comment on above: The validity of the calculated GFR & GFRAA in patients over 70 years has not been determined. Clinical correlation is essential. Serum or plasma urea nitroge n measurement (mass/volume)Ordered By: Aundrea Riley on 01-11-2023 Urea nitrogen [Mass/Vol] 9 mg/dL 7-18 [facility] Thin prep Papanicolaou smear with manual screeningOrdered By: Aundrea Riley on 01-11-2023 Thin prep Papanicolaou smear with manual screening 18 U/L 15-37 [facility] Thin prep Papanicolaou smear with manual screening 6 5-15 [facility] Urine creatinine measurement (mass/volume)Ordered By: Aundrea Riley on 01-11-2023 Creatinine (U) [Mass/Vol] 30.30 mg/dL NO RANGE EST. [facility] Urine protein measurement (m ass/volume)Ordered By: Aundrea Riley on 01-11-2023 Protein (U) [Mass/Vol] 6.3 mg/dL 0.0-11.8 [facility] Urine protein/creatinine mas s ratioOrdered By: Aundrea Riley on 01-11-2023 Protein/Creatinine (U) [Mass ratio] 208 mg/g CRE 0-200 [facility] Laboratory - Chemistry and C hemistry - challengeon 01-04-2023 Glucose Ql (U) Negative [facility] Laboratory - Urinalysison Protein Ql (U) Negative [facility] Urine creatinine measurement (mass/volume)Ordered By: Aundrea Riley on 01-04-2023 Creatinine (U) [Mass/Vol] 48.60 mg/dL NO RANGE EST. [facility] Urine protein measurement (m ass/volume)Ordered By: Aundrea Riley on 01-04-2023 Protein (U) [Mass/Vol] 10.3 mg/dL 0.0-11.8 [facility] Urine protein/creatinine mas s ratioOrdered By: Aundrea Osvaldo on 01-04-2023 Protein/Creatinine (U) [Mass ratio] 212 mg/g CRE 0-200 [facility] Laboratory - Chemistry and C hemistry - challengeon 12-14-2022 Glucose Ql (U) Negative [facility] Laboratory - Urinalysison Protein Ql (U) Negative [facility] Laboratory - Chemistry and C hemistry - challengeon 12-07-2022 Glucose Ql (U) Negative [facility] Laboratory - Urinalysison Protein Ql (U) Negative [facility] Absolute lymphocyte countOrd ered By: Aundrea Osvaldo on 11-30-2022 Lymphocytes Auto (Unsp spec) [#/Vol] 2.16 10*3/uL 0.83-4.51 [facility] Basophil percentageOrdered B y: Aundrea Osvaldo on 11-30-2022 Basophils/100 WBC (Bld) 0.5 % 0-1 [facility] Bilirubin [Mass/Vol] 0.30 mg/dL 0.20-1.00 [facility] Comment on above: For patients on eltr ombopag therapy, use of Dimension Marathon TBIL is not recommended. Chloride [Moles/Vol] 106 mmol/L 98-107 [facility] Eosinophils/100 WBC (Bld) 0.6 % 0-5 [facility] Glucose [Mass/Vol] 79 mg/dL 74-[address] [facility] Neutrophils (Bld) [#/Vol] 7.8 10*3/uL 2.0-7.7 [facility] Neutrophils/100 WBC (Bld) 71.3 % 47-70 [facility] Potassium [Moles/Vol] 3.9 mmol/L 3.5-5.1 [facility] Protein [Mass/Vol] 7.0 g/dL 6.4-8.[address] [facility] Sodium [Moles/Vol] 138 mmol/L 136-[address] [facility] WBC (Bld) [#/Vol] 10.9 10*3/uL 4.4-11.0 [facility] Blood erythrocytes count (nu mber/volume)Ordered By: Aundrea Riley on 11-30-2022 RBC (Bld) [#/Vol] 4.29 10*6/uL 4.2-5.4 [facility] Blood hemoglobin measurement (mass/volume)Ordered By: Aundrea Riley on 11-30-2022 Hemoglobin (Bld) [Mass/Vol] 12.2 g/dL 12.0-15.0 [facility] Blood lymphocytes/100 leukoc ytesOrdered By: Aundrea Riley on 11-30-2022 Lymphocytes/100 WBC (Bld) 19.8 % 19-41 [facility] Blood monocytes/100 leukocyt esOrdered By: Aundrea Riley on 11-30-2022 Monocytes/100 WBC (Bld) 7.2 % 0-10 [facility] Blood platelet mean volumeOr dered By: Aundrea Riley on 11-30-2022 Platelet mean volume (Bld) [Entitic vol] 10.3 fL 6.2-12.0 [facility] Determination of erythrocyte mean corpuscular volume (MCV)Ordered By: Aundrea Riley on 11-30-2022 MCV (RBC) [Entitic vol] 90.0 fL 81-99 [facility] Hematocrit Auto (Bld) [Volum e fraction]Ordered By: Aundrea Riley on 11-30-2022 Hematocrit (Bld) [Volume fraction] 38.6 % 37-47 [facility] Laboratory - Chemistry and C hemistry - challengeOrdered By: Aundrea Riley on 11-30-2022 ALP [Catalytic activity/Vol] 120 U/L 45-117 [facility] ALT [Catalytic activity/Vol] 15 U/L 13-56 [facility] CO2 [Moles/Vol] 27.0 mmol/L 21.0-32.0 [facility] Globulin (S) [Mass/Vol] 4.1 g/dL 2.2-4.2 [facility] Urea nitrogen/Creatinine [Mass ratio] 15.2 mg/mg 10-20 [facility] Laboratory - Chemistry and C hemistry - challengeon 11-30-2022 Glucose Ql (U) Negative [facility] Laboratory - Hematology and Cell countsOrdered By: Aundrea Riley on 11-30-2022 Erythrocyte distribution width (RBC) [Entitic vol] 39.3 fL 35.1-43.9 [facility] Erythrocyte distribution width (RBC) [Ratio] 11.9 % 11.6-14.6 [facility] Immature granulocytes/100 WBC (Bld) 0.600 % 0.0-0.9 [facility] Comment on above: IG% - Immature Granu locytes (promyelocytes, myelocytes and metamyelocytes) > 1% indicates that a LEFT SHIFT is Present. MCH (RBC) [Entitic mass] 28.4 pg 27.0-32.0 [facility] Nucleated RBC/100 WBC (Bld) [Ratio] 0 % 0-5 [facility] Laboratory - Urinalysison Protein Ql (U) Negative [facility] MCHC Auto (RBC) [Mass/Vol]Or dered By: Aundrea Riley on 11-30-2022 MCHC (RBC) [Mass/Vol] 31.6 g/dL 32-36 [facility] No Panel InformationOrdered By: Aundrea Riley on 11-30-2022 Estimated GFR (MDRD) Amer 153 mL/min >60 [facility] Comment on above: GFR Calc Estimated GFR (MDRD) Non-Af Amer 127 mL/min >60 [facility] Comment on above: Non- GFR Calc Platelets bldOrdered By: Teresita Riley on 11-30-2022 Platelets (Bld) [#/Vol] 240 10*3/uL 150-450 [facility] Serum or plasma albumin wilfrido urement (mass/volume)Ordered By: Aundrea Riley on 11-30-2022 Albumin [Mass/Vol] 2.9 g/dL 3.2-5.[address] [facility] Serum or plasma albumin/glob ulin mass ratioOrdered By: Aundrea Riley on 11-30-2022 Albumin/Globulin [Mass ratio] 0.7 {ratio} 0.9-2.4 [facility] Serum or plasma calcium wilfrido urement (mass/volume)Ordered By: Aundrea Riley on 11-30-2022 Calcium [Mass/Vol] 8.6 mg/dL 8.5-10.[address] [facility] Serum or plasma creatinine m easurement (mass/volume)Ordered By: Aundrea Riley on 11-30-2022 Creatinine [Mass/Vol] 0.59 mg/dL 0.55-1.02 [facility] Comment on above: The validity of the calculated GFR & GFRAA in patients over 70 years has not been determined. Clinical correlation is essential. Serum or plasma urea nitroge n measurement (mass/volume)Ordered By: Aundrea Riley on 11-30-2022 Urea nitrogen [Mass/Vol] 9 mg/dL 7-18 [facility] Serum or plasma uric acid me asurement (mass/volume)Ordered By: Aundrea Riley on 11-30-2022 Urate [Mass/Vol] 2.6 mg/dL 2.6-6.0 [facility] Comment on above: The drugs N-Acetylcy steine and Metamizole may falsely depress this assay. Thin prep Papanicolaou smear with manual screeningOrdered By: Aundrea Riley on 11-30-2022 Thin prep Papanicolaou smear with manual screening 16 U/L 15-37 [facility] Thin prep Papanicolaou smear with manual screening 5 5-15 [facility] [facility] Urine creatinine measurement (mass/volume)Ordered By: Aundrea Riley on 11-30-2022 Creatinine (U) [Mass/Vol] 32.30 mg/dL NO RANGE EST. [facility] Urine protein measurement (m ass/volume)Ordered By: Aundrea Riley on 11-30-2022 Protein (U) [Mass/Vol] 8.3 mg/dL 0.0-11.8 [facility] Urine protein/creatinine mas s ratioOrdered By: Aundrea Riley on 11-30-2022 Protein/Creatinine (U) [Mass ratio] 257 mg/g CRE 0-200 [facility] Laboratory - Chemistry and C hemistry - challengeon 11-19-2022 Glucose Ql (U) Negative [facility] Laboratory - Urinalysison Protein Ql (U) Negative [facility] Absolute lymphocyte countOrd ered By: Cintia Donovan on 11-11-2022 Lymphocytes Auto (Unsp spec) [#/Vol] 1.37 10*3/uL 0.83-4.51 [facility] Basophil percentageOrdered B y: Cintia Donovan on 11-11-2022 Basophils/100 WBC (Bld) 0.3 % 0-1 [facility] Eosinophils/100 WBC (Bld) 1.1 % 0-5 [facility] Neutrophils (Bld) [#/Vol] 4.7 10*3/uL 2.0-7.7 [facility] Neutrophils/100 WBC (Bld) 70.9 % 47-70 [facility] WBC (Bld) [#/Vol] 6.7 10*3/uL 4.4-11.[address] [facility] Blood erythrocytes count (nu mber/volume)Ordered By: Cintia Donovan on 11-11-2022 RBC (Bld) [#/Vol] 4.37 10*6/uL 4.2-5.4 [facility] Blood hemoglobin measurement (mass/volume)Ordered By: Cintia Donovan on 11-11-2022 Hemoglobin (Bld) [Mass/Vol] 13.2 g/dL 12.0-15.0 [facility] Blood lymphocytes/100 leukoc ytesOrdered By: Cintia Donovan on 11-11-2022 Lymphocytes/100 WBC (Bld) 20.6 % 19-41 [facility] Blood monocytes/100 leukocyt esOrdered By: Cintia Donovan on 11-11-2022 Monocytes/100 WBC (Bld) 6.5 % 0-10 [facility] Blood platelet mean volumeOr dered By: Cintia Donovan on 11-11-2022 Platelet mean volume (Bld) [Entitic vol] 9.6 fL 6.2-12.0 [facility] Determination of erythrocyte mean corpuscular volume (MCV)Ordered By: Cintia Donovan on 11-11-2022 MCV (RBC) [Entitic vol] 90.2 fL 81-99 [facility] HIV 1 and HIV-2 antibody ass ay with HIV-1 p24 antigen detectionOrdered By: Cintia Donovan on 11-11-2022 HIV 1+2 Ab+HIV1 p24 Ag IA Ql Non-Reactive Nonreactive [facility] Hematocrit Auto (Bld) [Volum e fraction]Ordered By: Cintia Donovan on 11-11-2022 Hematocrit (Bld) [Volume fraction] 39.4 % 37-47 [facility] Laboratory - Hematology and Cell countsOrdered By: Cintia Donovan on 11-11-2022 Erythrocyte distribution width (RBC) [Entitic vol] 39.5 fL 35.1-43.9 [facility] Erythrocyte distribution width (RBC) [Ratio] 12.0 % 11.6-14.6 [facility] Immature granulocytes/100 WBC (Bld) 0.600 % 0.0-0.9 [facility] Comment on above: IG% - Immature Granu locytes (promyelocytes, myelocytes and metamyelocytes) > 1% indicates that a LEFT SHIFT is Present. MCH (RBC) [Entitic mass] 30.2 pg 27.0-32.0 [facility] Nucleated RBC/100 WBC (Bld) [Ratio] 0 % 0-5 [facility] MCHC Auto (RBC) [Mass/Vol]Or dered By: Cintia Donovan on 11-11-2022 MCHC (RBC) [Mass/Vol] 33.5 g/dL 32-36 [facility] Platelets bldOrdered By: Maksim Donovan on 11-11-2022 Platelets (Bld) [#/Vol] 230 10*3/uL 150-450 [facility] Quantitative serum or plasma 3 hour gestational glucose tolerance panelOrdered By: Cintia Donovan on 11-11-2022 Glucose tolerance 3 hours gestational panel See comment [facility] Comment on above: FASTING 78 Col: 05/31 0653GLUCOSE TOLERANCE TEST FOR Reference Interval GESTATIONAL DIABETES Fasting <105 mg/dL 1 hour <190 mg/dl 2 hour <165 mg/dl 3 hour <145 mg/dl 1 HR GLU 144 Col: 11/11/22 0756 2 HR GLU 102 Col: 11/11/22 0856 3 HR GLU 81 Col: 11/11/22 0956 Serum Treponema species anti body detectionOrdered By: Cintia Donovan on 11-11-2022 Treponema sp Ab Ql (S) Non-Reactive [facility] Laboratory - Chemistry and C hemistry - challengeon 10-23-2022 Glucose Ql (U) Negative [facility] Laboratory - Urinalysison Protein Ql (U) Negative [facility] Gestational diabetes screen 1-hour screen with 50g oral glucose loadOrdered By: Kam Lees on 08-12-2022 Glucose 1 Hr post 50 g glucose PO [Mass/Vol] 86 mg/dL 70-140 [facility] Culture, urineOrdered By: Dr Jorgito Lees on 07-16-2022 Bacteria identified Cx Nom (U) Positive [facility] Absolute lymphocyte countOrd ered By: Dr. Lees on 07-14-2022 Lymphocytes Auto (Unsp spec) [#/Vol] 1.28 10*3/uL 0.83-4.51 [facility] Basophil percentageOrdered B y: Dr. Lees on 07-14-2022 Basophils/100 WBC (Bld) 0.6 % 0-1 [facility] Eosinophils/100 WBC (Bld) 1.2 % 0-5 [facility] Neutrophils (Bld) [#/Vol] 6.4 10*3/uL 2.0-7.7 [facility] Neutrophils/100 WBC (Bld) 75.1 % 47-70 [facility] WBC (Bld) [#/Vol] 8.6 10*3/uL 4.4-11.[address] [facility] Blood erythrocytes count (nu mber/volume)Ordered By: Dr. Lees on 07-14-2022 RBC (Bld) [#/Vol] 4.36 10*6/uL 4.2-5.4 [facility] Blood hemoglobin measurement (mass/volume)Ordered By: Dr. Lees on 07-14-2022 Hemoglobin (Bld) [Mass/Vol] 13.3 g/dL 12.0-15.0 [facility] Blood lymphocytes/100 leukoc ytesOrdered By: Dr. Lees on 07-14-2022 Lymphocytes/100 WBC (Bld) 15.0 % 19-41 [facility] Blood monocytes/100 leukocyt esOrdered By: Dr. Lees on 07-14-2022 Monocytes/100 WBC (Bld) 7.6 % 0-10 [facility] Blood platelet mean volumeOr dered By: Dr. Lees on 07-14-2022 Platelet mean volume (Bld) [Entitic vol] 10.1 fL 6.2-12.0 [facility] Culture, urineOrdered By: Jules Lees on 07-14-2022 Bacteria identified Cx Nom (U) Positive [facility] Determination of erythrocyte mean corpuscular volume (MCV)Ordered By: Dr. Lees on 07-14-2022 MCV (RBC) [Entitic vol] 90.6 fL 81-99 [facility] HIV 1 and HIV-2 antibody ass ay with HIV-1 p24 antigen detectionOrdered By: Dr. Lees on 07-14-2022 HIV 1+2 Ab+HIV1 p24 Ag IA Ql Non-Reactive Nonreactive [facility] Hematocrit Auto (Bld) [Volum e fraction]Ordered By: Dr. Lees on 07-14-2022 Hematocrit (Bld) [Volume fraction] 39.5 % 37-47 [facility] Laboratory - Hematology and Cell countsOrdered By: Dr. Lees on 07-14-2022 Erythrocyte distribution width (RBC) [Entitic vol] 40.0 fL 35.1-43.9 [facility] Erythrocyte distribution width (RBC) [Ratio] 12.0 % 11.6-14.6 [facility] Immature granulocytes/100 WBC (Bld) 0.500 % 0.0-0.9 [facility] Comment on above: IG% - Immature Granu locytes (promyelocytes, myelocytes and metamyelocytes) > 1% indicates that a LEFT SHIFT is Present. MCH (RBC) [Entitic mass] 30.5 pg 27.0-32.0 [facility] Nucleated RBC/100 WBC (Bld) [Ratio] 0 % 0-5 [facility] MCHC Auto (RBC) [Mass/Vol]Or dered By: Dr. Lees on 07-14-2022 MCHC (RBC) [Mass/Vol] 33.7 g/dL 32-36 [facility] No Panel InformationOrdered By: Dr. Lees on 07-14-2022 Hepatitis B Surface Antigen Non-Reactive Nonreactive [facility] Hepatitis C Antibody Non-Reactive Nonreactive [facility] Comment on above: Non Reactive: < 0.8 Equivocal: >/= 0.8 to < 1.0 Reactive: >/= 1.0The CDC recommends that a reactive/equivocal HCV antibody result be followed up by the HCV Nucleic Acid Amplificationtest (862570) Rubella IgG Antibody Reactive Nonreactive [facility] Comment on above: Antibody Results Int erpretation of Immune Status Non Reactive Presumed Non-Immune Equivocal Equivocal Reactive Presumed Immune Platelets bldOrdered By: Dr. Lees on 07-14-2022 Platelets (Bld) [#/Vol] 257 10*3/uL 150-450 [facility] Serum Treponema species anti body detectionOrdered By: Dr. Lees on 07-14-2022 Treponema sp Ab Ql (S) Non-Reactive [facility] Serum Varicella zoster virus IgG antibody assay by immunoassay (units/volume)Ordered By: Dr. Lees on 07-14-2022 VZV IgG IA Qn (S) 886 index Immune >[address] [facility] Comment on above: Negative <135 Equivo anay 135 - 165 Positive >165A positive result generally indicates exposure to thepathogen or administration of specific immunoglobulins,but it is not indication of active infection or stageof disease.Performed at: [facility] Director: Robert Varela PhD, Phone: [phone] Serum or plasma progesterone measurement (mass/volume)Ordered By: Dr. Lees on 06-03-2022 Progesterone [Mass/Vol] 13.86 ng/mL See Comment [facility] Comment on above: Progesterone Referen ce Table: UNITS Female: Follicular 0.15 - 1.40 ng/mL Luteal 3.34 - 25.56 ng/mL Mid-luteal 4.44 - 28.03 ng/mL Postmenopausal 0.0 - 0.73 ng/mL : 1st Trimester 11.22 - 90.00 ng/mL 2nd Trimester 25.55 - 89.40 ng/mL 3rd Trimester 48.40 -422.50 ng/mL Absolute lymphocyte countOrd ered By: Dr. Lees on 03-20-2022 Lymphocytes Auto (Unsp spec) [#/Vol] 2.20 10*3/uL 0.83-4.51 [facility] Basophil percentageOrdered B y: Dr. Lees on 03-20-2022 Basophils/100 WBC (Bld) 0.7 % 0-1 [facility] Eosinophils/100 WBC (Bld) 1.2 % 0-5 [facility] Neutrophils (Bld) [#/Vol] 4.3 10*3/uL 2.0-7.7 [facility] Neutrophils/100 WBC (Bld) 59.9 % 47-70 [facility] Testosterone [Mass/Vol] 26 ng/dL 13-71 [facility] WBC (Bld) [#/Vol] 7.2 10*3/uL 4.4-11.[address] [facility] Blood erythrocytes count (nu mber/volume)Ordered By: Dr. Lees on 03-20-2022 RBC (Bld) [#/Vol] 4.80 10*6/uL 4.2-5.4 [facility] Blood hemoglobin measurement (mass/volume)Ordered By: Dr. Lees on 03-20-2022 Hemoglobin (Bld) [Mass/Vol] 14.2 g/dL 12.0-15.0 [facility] Blood lymphocytes/100 leukoc ytesOrdered By: Dr. Lees on 03-20-2022 Lymphocytes/100 WBC (Bld) 30.5 % 19-41 [facility] Blood monocytes/100 leukocyt esOrdered By: Dr. Lees on 03-20-2022 Monocytes/100 WBC (Bld) 7.4 % 0-10 [facility] Blood platelet mean volumeOr dered By: Dr. Lees on 03-20-2022 Platelet mean volume (Bld) [Entitic vol] 10.2 fL 6.2-12.0 [facility] Determination of erythrocyte mean corpuscular volume (MCV)Ordered By: Dr. Lees on 03-20-2022 MCV (RBC) [Entitic vol] 89.0 fL 81-99 [facility] Free testosterone percentage Ordered By: Dr. Lees on 03-20-2022 Testosterone Free/Testosterone.tota l [Mass fraction] 1.18 % 0.50-2.80 [facility] Comment on above: Performed at: [address] [id number] Director: Robert Varela PhD, Phone: [phone] at: [facility] [id number] Director: Jane Medina MD, Phone: [phone] Hematocrit Auto (Bld) [Volum e fraction]Ordered By: Dr. Lees on 03-20-2022 Hematocrit (Bld) [Volume fraction] 42.7 % 37-47 [facility] Laboratory - Chemistry and C hemistry - challengeOrdered By: Dr. Lees on 03-20-2022 Free T4 [Mass/Vol] 0.83 ng/dL 0.76-1.[address] [facility] Laboratory - Hematology and Cell countsOrdered By: Dr. Lees on 03-20-2022 Erythrocyte distribution width (RBC) [Entitic vol] 38.8 fL 35.1-43.9 [facility] Erythrocyte distribution width (RBC) [Ratio] 12.0 % 11.6-14.6 [facility] Immature granulocytes/100 WBC (Bld) 0.300 % 0.0-0.9 [facility] Comment on above: IG% - Immature Granu locytes (promyelocytes, myelocytes and metamyelocytes) > 1% indicates that a LEFT SHIFT is Present. MCH (RBC) [Entitic mass] 29.6 pg 27.0-32.0 [facility] Nucleated RBC/100 WBC (Bld) [Ratio] 0 % 0-5 [facility] MCHC Auto (RBC) [Mass/Vol]Or dered By: Dr. Lees on 03-20-2022 MCHC (RBC) [Mass/Vol] 33.3 g/dL 32-36 [facility] No Panel InformationOrdered By: Dr. Lees on 03-20-2022 Follicle Stimulating Hormone 6.8 mIU/mL [facility] Comment on above: NORMAL REFERENCE [facility] FEMALE FOLLICULAR 2.3 - 12.6 mIU/mL MID-CYCLE PEAK 5.2 - 17.5 mIU/mL LUTEAL 1.7 - 12.9 mIU/mL POST-MENOPAUSAL ON MHT 5.9 - 72.8 mIU/mL NOT ON MHT 12.7 - 132.2 mlU/mL MALE 0.7 - 10.8 mIU/mL Luteinizing Hormone 7.8 mIU/mL [facility] Comment on above: NORMAL REFERENCE [facility] FEMALE FOLLICULAR 1.9 - 26.2 mIU/mL MID-CYCLE PEAK 22.8 - 76.1 mIU/mL LUTEAL 0.6 - 16.6 mIU/mL POST-MENOPAUSAL ON MHT 1.1 - 52.4 mIU/mL NOT ON MHT 8.6 - 61.8 mIU/mL MALE 1.2 - 10.6 mIU/mL Thyroid Stimulating Hormone (TSH) 2.94 uIU/mL 0.358-3.74 [facility] Platelets bldOrdered By: Dr. Lees on 03-20-2022 Platelets (Bld) [#/Vol] 288 10*3/uL 150-450 [facility] Serum or plasma estradiol (E 2) measurement (mass/volume)Ordered By: Dr. Lees on 03-20-2022 E2 [Mass/Vol] 40.8 pg/mL [facility] Comment on above: NORMAL REFERENCE [facility]AN [facility] FEMALE FOLLICULAR 21.4 - 164.8 pg/mL MID-CYCLE PEAK 49.9 - 367.2 pg/mL LUTEAL 40.2 - 259.0 pg/mL POST-MENOPAUSAL ON MHT <11.0 - 462.1 pg/mL NOT ON MHT <11.0 - 58.3 pg/mL MALE <11.0 - 52.5 pg/mL NOTE:[employer] HAS CONFIRMED THE DRUG FULVETRANT (FASLODEX) MAY CAUSE FALSELY ELEVATED ESTRADIOL RESULTS WHEN USING THIS TEST METHOD. IF PATIENT IS TAKING FULVESTRANT AN ALTERNATIVE METHOD SHOULD BE USED TO DETERMINE ESTRADIOL CONCENTRATION. Serum or plasma testosterone free measurement (mass/volume)Ordered By: Dr. Lees on 03-20-2022 Testosterone Free [Mass/Vol] 0.31 ng/dL 0.10-0.85 [facility] Whole blood hemoglobin A1c/t otal hemoglobin ratio (mass fraction)Ordered By: Dr. Lees on 03-20-2022 HbA1c (Bld) [Mass fraction] 5.2 % 3.8-5.6 [facility] Comment on above: Normal < 5.7 % Predi abetic 5.7 - 6.4 % Diabetic >or= 6.5 % Please note range changes. Basophil percentageon 2021 WBC (Bld) [#/Vol] 4.5 10*3/uL 4.4-11.[address] [facility] Work Phone: Blood erythrocytes count (nu mber/volume)on 05-28-2021 RBC (Bld) [#/Vol] 2.89 10*6/uL 4.2-5.4 [facility] Work Phone: Blood hemoglobin measurement (mass/volume)on 05-28-2021 Hemoglobin (Bld) [Mass/Vol] 8.7 g/dL 12.0-15.0 [facility] Work Phone: Blood platelet mean volumeon 05-28-2021 Platelet mean volume (Bld) [Entitic vol] 9.8 fL 6.2-12.0 [facility] Work Phone: Determination of erythrocyte mean corpuscular volume (MCV)on 05-28-2021 MCV (RBC) [Entitic vol] 91.0 fL 81-99 [facility] Work Phone: Hematocrit Auto (Bld) [Volum e fraction]on 05-28-2021 Hematocrit (Bld) [Volume fraction] 26.3 % 37-47 [facility] Work Phone: Laboratory - Hematology and Cell countson 05-28-2021 Erythrocyte distribution width (RBC) [Entitic vol] 40.7 fL 35.1-43.9 [facility] Work Phone: Erythrocyte distribution width (RBC) [Ratio] 12.2 % 11.6-14.6 [facility] Work Phone: MCH (RBC) [Entitic mass] 30.1 pg 27.0-32.0 [facility] Work Phone: MCHC Auto (RBC) [Mass/Vol]on 05-28-2021 MCHC (RBC) [Mass/Vol] 33.1 g/dL 32-36 [facility]: Platelets bldon 05-28-2021 Platelets (Bld) [#/Vol] 396 10*3/uL 150-450 [facility] Work Phone: Serum or plasma ferritin sven surement (mass/volume)on 05-28-2021 Ferritin [Mass/Vol] 10 ng/mL 8-252 [facility] Work Phone: Absolute lymphocyte counton 05-20-2021 Lymphocytes Auto (Unsp spec) [#/Vol] 0.48 10*3/uL 0.83-4.51 [facility] Work Phone: Basophil percentageon 2021 Basophils/100 WBC (Bld) 0.1 % 0-1 [facility] Work Phone: Eosinophils/100 WBC (Bld) 0.0 % 0-5 [facility] Work Phone: Neutrophils (Bld) [#/Vol] 7.8 10*3/uL 2.0-7.7 [facility] Work Phone: Neutrophils/100 WBC (Bld) 93.0 % 47-70 [facility] Work Phone: WBC (Bld) [#/Vol] 8.4 10*3/uL 4.4-11.[address] [facility] Work Phone: Blood erythrocytes count (nu mber/volume)on 05-20-2021 RBC (Bld) [#/Vol] 2.69 10*6/uL 4.2-5.4 [facility] Work Phone: Blood hemoglobin measurement (mass/volume)on 05-20-2021 Hemoglobin (Bld) [Mass/Vol] 8.2 g/dL 12.0-15.0 [facility] Work Phone: Blood lymphocytes/100 leukoc yteson 05-20-2021 Lymphocytes/100 WBC (Bld) 5.7 % 19-41 [facility] Work Phone: Blood manual differential co mment interpretation (narrative result)on 05-20-2021 Manual differential comment Jimmy (Bld) [Interp] COMMENT [facility] Work Phone: Comment on above: LYMPHOPENIA. Blood monocytes/100 leukocyt eson 05-20-2021 Monocytes/100 WBC (Bld) 0.6 % 0-10 [facility] Work Phone: Blood platelet mean volumeon 05-20-2021 Platelet mean volume (Bld) [Entitic vol] 10.3 fL 6.2-12.0 [facility] Work Phone: Determination of erythrocyte mean corpuscular volume (MCV)on 05-20-2021 MCV (RBC) [Entitic vol] 90.0 fL 81-99 [facility] Work Phone: Hematocrit Auto (Bld) [Volum e fraction]on 05-20-2021 Hematocrit (Bld) [Volume fraction] 24.2 % 37-47 [facility] Work Phone: Laboratory - Hematology and Cell countson 05-20-2021 Erythrocyte distribution width (RBC) [Entitic vol] 39.1 fL 35.1-43.9 [facility] Work Phone: Erythrocyte distribution width (RBC) [Ratio] 11.9 % 11.6-14.6 [facility] Work Phone: Immature granulocytes/100 WBC (Bld) 0.600 % 0.0-0.9 [facility] Work Phone: Comment on above: IG% - Immature Granu locytes (promyelocytes, myelocytes and metamyelocytes) > 1% indicates that a LEFT SHIFT is Present. MCH (RBC) [Entitic mass] 30.5 pg 27.0-32.0 [facility] Work Phone: Nucleated RBC/100 WBC (Bld) [Ratio] 0 % 0-5 [facility] Work Phone: MCHC Auto (RBC) [Mass/Vol]on 05-20-2021 MCHC (RBC) [Mass/Vol] 33.9 g/dL 32-36 [facility] Work Phone: Platelets bldon 05-20-2021 Platelets (Bld) [#/Vol] 195 10*3/uL 150-450 [facility] Work Phone: Basophil percentageon 2021 Chloride [Moles/Vol] 103 mmol/L 98-107 [facility] Work Phone: Glucose [Mass/Vol] 111 mg/dL 74-[address] [facility] Work Phone: Comment on above: Fasting Glucose resu lt from 100 to 125 mg/dL suggests IMPAIRED HOMEOSTASIS per A.D.A. criteria. Potassium [Moles/Vol] 3.4 mmol/L 3.5-5.1 [facility] Work Phone: Sodium [Moles/Vol] 135 mmol/L 136-[address] [facility] Work Phone: INR in Blood by Coagulation assayon 05-19-2021 INR Coag (Bld) [Relative time] 1.2 {INR} [facility] Work Phone: Laboratory - Chemistry and C hemistry - challengeon 05-19-2021 CO2 [Moles/Vol] 26.0 mmol/L 21.0-32.0 [facility] Work Phone: Urea nitrogen/Creatinine [Mass ratio] 19.3 mg/mg 10-20 [facility] Work Phone: Laboratory - Coagulationon 0 05-19-2021 aPTT Coag (Bld) [Time] 26.3 s 24.1-36.2 [facility] Work Phone: PT Coag (PPP) [Time] 14.1 s 11.7-14.9 [facility] Work Phone: No Panel Informationon 05-19 Estimated Creatinine Clearance Calc 92.00 ml/min [facility] Work Phone: Estimated GFR (MDRD) Amer 123 mL/min >60 [facility] Work Phone: Comment on above: GFR Calc Estimated GFR (MDRD) Non-Af Amer 101 mL/min >60 [facility] Work Phone: Comment on above: Non- GFR Calc Serum or plasma calcium wilfrido urement (mass/volume)on 05-19-2021 Calcium [Mass/Vol] 8.7 mg/dL 8.5-10.[address] [facility] Work Phone: Serum or plasma creatinine m easurement (mass/volume)on 05-19-2021 Creatinine [Mass/Vol] 0.72 mg/dL 0.55-1.02 [facility] Work Phone: Comment on above: The validity of the calculated GFR & GFRAA in patients over 70 years has not been determined. Clinical correlation is essential. Serum or plasma urea nitroge n measurement (mass/volume)on 05-19-2021 Urea nitrogen [Mass/Vol] 14 mg/dL 7-18 [facility] Work Phone: Thin prep Papanicolaou smear with manual screeningon 05-19-2021 Thin prep Papanicolaou smear with manual screening 6 5-15 [facility] Work Phone: Absolute lymphocyte counton 05-01-2021 Lymphocytes Auto (Unsp spec) [#/Vol] 1.67 10*3/uL 0.83-4.51 [facility] Work Phone: Basophil percentageon 2021 Basophils/100 WBC (Bld) 0.9 % 0-1 [facility] Work Phone: Eosinophils/100 WBC (Bld) 1.1 % 0-5 [facility] Work Phone: Neutrophils (Bld) [#/Vol] 4.6 10*3/uL 2.0-7.7 [facility] Work Phone: Neutrophils/100 WBC (Bld) 65.7 % 47-70 [facility] Work Phone: WBC (Bld) [#/Vol] 7.0 10*3/uL 4.4-11.[address] [facility] Work Phone: Blood erythrocytes count (nu mber/volume)on 05-01-2021 RBC (Bld) [#/Vol] 4.98 10*6/uL 4.2-5.4 [facility] Work Phone: Blood hemoglobin measurement (mass/volume)on 05-01-2021 Hemoglobin (Bld) [Mass/Vol] 15.4 g/dL 12.0-15.0 [facility] Work Phone: Blood lymphocytes/100 leukoc yteson 05-01-2021 Lymphocytes/100 WBC (Bld) 24.0 % 19-41 [facility] Work Phone: Blood monocytes/100 leukocyt eson 05-01-2021 Monocytes/100 WBC (Bld) 8.0 % 0-10 [facility] Work Phone: Blood platelet mean volumeon 05-01-2021 Platelet mean volume (Bld) [Entitic vol] 10.8 fL 6.2-12.0 [facility] Work Phone: Culture, urineon 05-01-2021 Bacteria identified Cx Nom (U) Culture exhibits no growth. [facility] Work Phone: Determination of erythrocyte mean corpuscular volume (MCV)on 05-01-2021 MCV (RBC) [Entitic vol] 88.2 fL 81-99 [facility] Work Phone: Gestational diabetes screen 1-hour screen with 50g oral glucose loadon 05-01-2021 Glucose 1 Hr post 50 g glucose PO [Mass/Vol] 69 mg/dL 70-140 [facility] Work Phone: HIV 1 and HIV-2 antibody ass ay with HIV-1 p24 antigen detectionon 05-01-2021 HIV 1+2 Ab+HIV1 p24 Ag IA Ql Non-Reactive Nonreactive [facility] Work Phone: Hematocrit Auto (Bld) [Volum e fraction]on 05-01-2021 Hematocrit (Bld) [Volume fraction] 43.9 % 37-47 [facility] Work Phone: Laboratory - Hematology and Cell countson 05-01-2021 Erythrocyte distribution width (RBC) [Entitic vol] 38.1 fL 35.1-43.9 [facility] Work Phone: Erythrocyte distribution width (RBC) [Ratio] 11.8 % 11.6-14.6 [facility] Work Phone: Immature granulocytes/100 WBC (Bld) 0.300 % 0.0-0.9 [facility] Work Phone: Comment on above: IG% - Immature Granu locytes (promyelocytes, myelocytes and metamyelocytes) > 1% indicates that a LEFT SHIFT is Present. MCH (RBC) [Entitic mass] 30.9 pg 27.0-32.0 [facility] Work Phone: Nucleated RBC/100 WBC (Bld) [Ratio] 0 % 0-5 [facility] Work Phone: MCHC Auto (RBC) [Mass/Vol]on 05-01-2021 MCHC (RBC) [Mass/Vol] 35.1 g/dL 32-36 [facility] Work Phone: No Panel Informationon 05-01 Hepatitis B Surface Antigen Non-Reactive Nonreactive [facility] Work Phone: Hepatitis C Antibody Non-Reactive Nonreactive W [facility] Work Phone: Comment on above: Non Reactive: < 0.8 Equivocal: >/= 0.8 to < 1.0 Reactive: >/= 1.0The CDC recommends that a reactive/equivocal HCV antibody result be followed up by the HCV Nucleic Acid Amplificationtest (936634) Rubella IgG Antibody Reactive Nonreactive [facility] Work Phone: Comment on above: Antibody Results Int erpretation of Immune Status Non Reactive Presumed Non-Immune Equivocal Equivocal Reactive Presumed Immune Platelets bldon 05-01-2021 Platelets (Bld) [#/Vol] 235 10*3/uL 150-450 [facility] Work Phone: Serum Treponema species anti body detectionon 05-01-2021 Treponema sp Ab Ql (S) Non-Reactive [facility] Work Phone: Cervical or vagninal specime n microscopic examination by cytology stain (reported ason 04-15-2021 Cytology report Cyto stain Doc (Cvx/Vag) Comment [facility] Work Phone: Comment on above: The Pap smear is a s creening test designed to aid in thedetection of premalignant and malignant conditions of theuterine cervix. It is not a diagnostic procedure andshould not be used as the sole means of detecting cervicalcancer. Both false-positive and false-negative reports dooccur. Chlamydia trachomatis rRNA d etection by probe and target amplification methodon 04-15-2021 C. trachomatis rRNA NOE+probe Ql (Unsp spec) Negative Negative [facility] Work Phone: Detection in cervical specim en of any of human papilloma virus (HPV) 16, 18, 31, 33,on 04-15-2021 HPV 16+18+31+33+35+39+45+5 1+52+56+58+59+66+68 DNA Probe+sig amp Ql (Cvx) Negative Negative [facility] Work Phone: Comment on above: This nucleic acid am plification test detects fourteen high- risk HPV types (16,18,31,33,35,39,45,51,52,56,58,59,66,68)without differentiation.Performed at: - [address] [id number] Director: Arielle Munguia MD, Phone: [phone] at: = - [facility] [id number] Director: Arielle Munguia MD, Phone: [phone] Laboratory - Cytologyon Acoustical Tile Patternmaker Cyto stain Nom (Cvx/Vag) [ID] Comment [facility] Work Phone: Comment on above: Brianna Higginbotham, Cyto technologist (ASCP) Laboratory - Microbiology an d Antimicrobial susceptibilityon 04-15-2021 N. gonorrhoeae DNA NOE+probe Ql (Unsp spec) Negative Negative [facility] Work Phone: Comment on above: Performed at: =G - L jilinda ValenciaOpbczray[address]Saurav [place] [id number] Director: Arielle Munguia MD, Phone: [phone] Laboratory - Miscellaneous t estson 04-15-2021 Service comment (Unsp spec) [Interp] Comment [facility] Work Phone: Comment on above: This liquid based Th inPrep(R) pap test was screened withthe use of an image guided system. Service comment (Unsp spec) [Interp] . [facility] Work Phone: No Panel Informationon 04-15 Pathology report final diagnosis Narrative Comment [facility] Work Phone: Comment on above: NEGATIVE FOR INTRAEP ITHELIAL LESION OR MALIGNANCY. THROAT STREPon 02-18-2018 THROAT STREP BETA STREP RESULT NO BETA STREPTOCOCCUS ISOLATED Normal [facility] Comment on above: Order Comment: Flori s: [place]: PROVIDER Performed By: #### M [id number], [id number] ####[facility] [address] [place] [id number]# [phone] JSon 02-16-2018 [facility] REPORT This is a preliminary report only, as the practitioner review and authentication has not occurred. Normal [facility] Cameron JS DATE OF SERVICE: 02/16/2018HISTORY OF PRESENT ILLNESS: Mrs. Mg is a 27-year-old femalep[facility] with complaints of sore throat, congestion, lossof voice. Her symptoms started Wednesday and the patient concerned and came in forfurther evaluation and treatment. The patient denied any difficulty swallowing,denied any fever or chills, denied any cough. The patient has no primary carephysician.MEDICAT IONS: control pill.ALLERGIES: No known drug allergies.SOCIAL HISTORY: The patient is a nonsmoker and occasional alcohol drinker.FAMILY HISTORY: Significant for diabetes.REVIEW OF SYSTEMS: Per HPI.PHYSICAL EXAMINATION: Vital Signs: Temperature 98.3, respiratory rate 17, pulse 68,blood pressure 116/74, pulse oximetry 99%. Pain level 4/10. Patient's weight 117.2pounds. General: This is a 27-year-old female who does not appear sicklyill or in acute distress, well hydrated. HEENT: Unremarkable except fororopharyngeal erythema and congestion, no exudate appreciated. Neck: Supple. Fullrange of motion. No lymphadenopathy. Lungs: Clear to auscultation bilaterally.Heart: Regular rhythm, normal heart sounds.IMPRESSION:1. Acute pharyngitis, viral.2. Acute laryngitis, viral.PLAN: The rapid strep test performed in [facility] revealed a negative study. Idiscussed the results with the patient. Reassured. I encouraged the patient todrink fluid, Motrin or Tylenol as needed. Recommend the patient to rest her voiceand follow up if not better. Blake Wells MARI/[id number]: 02/16/2018 19:23DT: 02/17/2018 08:20SSI File#: [id number] ob #: [id number] [facility] PATIENT NAME: ANANYA MG Anne-Marie Warren MEDICAL REC #: [id number], [place] [address] [facility] REPORT [facility] PATIENT NAME: ANANYA MG Anne-Marie Warren MEDICAL REC #: [id number] [address] [facility] REPORT [facility] PHYSICIAN Normal [facility] RAPID STREP Aon 02-16-2018 S. pyogenes Ag IA Ql (Unsp spec) GROUP A STREP PRESUMPTIVE NEGATIVE FOR GROUP A BETA STREPTOCOCCUS Normal [facility] Comment on above: Order Comment: Flori s: [place]: PROVIDER Performed By: #### M [id number], [id number] ####[address] [id number]# [phone] Vital Signs Date Time Vital Sign Value Performing Clinician Juan perea 10-06-2024 10:11-0400 Body height 157.48 cm No Primary Care Physician [facility] 10-06-2024 10:11-0400 Body mass index (BMI) [Ratio] 23.1 kg/m2 No Primary Care Physician [facility] 10-06-2024 10:11-0400 Body weight 57.26 kg No Primary Care Physician [facility] 10-06-2024 10:11-0400 Diastolic blood pressure 81 mm[Hg] No Primary Care Physician [facility] 10-06-2024 10:11-0400 Systolic blood pressure 151 mm[Hg] No Primary Care Physician [facility] 01-29-2023 07:47-0500 Body temperature 97.3 [degF] No Primary Care Physician [facility] 01-29-2023 07:47-0500 Diastolic blood pressure 78 mm[Hg] No Primary Care Physician [facility] 01-29-2023 07:47-0500 Heart rate 83 /min No Primary Care Physician [facility] 01-29-2023 07:47-0500 SaO2% (BldA) [Mass fraction] 100 % No Primary Care Physician [facility] 01-29-2023 07:47-0500 Systolic blood pressure 127 mm[Hg] No Primary Care Physician [facility] 01-29-2023 00:04-0500 Body height 157.48 cm No Primary Care Physician [facility] 01-29-2023 00:04-0500 Body mass index (BMI) [Ratio] 25.7 kg/m2 No Primary Care Physician [facility] 01-29-2023 00:04-0500 Body weight 63.95 kg No Primary Care Physician [facility] 01-28-2023 15:43-0500 Body temperature 98.4 [degF] No Primary Care Physician [facility] 01-28-2023 15:43-0500 Diastolic blood pressure 75 mm[Hg] No Primary Care Physician [facility] 01-28-2023 15:43-0500 Heart rate 81 /min No Primary Care Physician [facility] 01-28-2023 15:43-0500 Respiratory rate 16 /min No Primary Care Physician [facility] 01-28-2023 15:43-0500 SaO2% (BldA) [Mass fraction] 98 % No Primary Care Physician [facility] 01-28-2023 15:43-0500 Systolic blood pressure 142 mm[Hg] No Primary Care Physician [facility] 01-27-2023 07:21-0500 Body height 157.48 cm No Primary Care Physician [facility] 01-27-2023 07:21-0500 Body mass index (BMI) [Ratio] 26.6 kg/m2 No Primary Care Physician [facility] 01-27-2023 07:21-0500 Body weight 66.22 kg No Primary Care Physician [facility] 01-25-2023 15:37-0500 Body mass index (BMI) [Ratio] 27.1 kg/m2 No Primary Care Physician [facility] 01-25-2023 15:37-0500 Body weight 67.13 kg No Primary Care Physician [facility] 01-25-2023 15:37-0500 Diastolic blood pressure 90 mm[Hg] No Primary Care Physician [facility] 01-25-2023 15:37-0500 Systolic blood pressure 138 mm[Hg] No Primary Care Physician [facility] 01-21-2023 09:17-0500 Body height 157.48 cm No Primary Care Physician [facility] 01-21-2023 09:15-0500 Body mass index (BMI) [Ratio] 26.6 kg/m2 No Primary Care Physician [facility] 01-21-2023 09:15-0500 Body weight 66.22 kg No Primary Care Physician [facility] 01-21-2023 09:15-0500 Diastolic blood pressure 79 mm[Hg] No Primary Care Physician [facility] 01-21-2023 09:15-0500 Systolic blood pressure 128 mm[Hg] No Primary Care Physician [facility] 01-18-2023 15:21-0500 Body mass index (BMI) [Ratio] 26.9 kg/m2 No Primary Care Physician [facility] 01-18-2023 15:21-0500 Body weight 66.67 kg No Primary Care Physician [facility] 01-18-2023 15:21-0500 Diastolic blood pressure 90 mm[Hg] No Primary Care Physician [facility] 01-18-2023 15:21-0500 Systolic blood pressure 145 mm[Hg] No Primary Care Physician [facility] 01-11-2023 13:46-0500 Body height 157.48 cm No Primary Care Physician [facility] 01-11-2023 13:45-0500 Body mass index (BMI) [Ratio] 26.9 kg/m2 No Primary Care Physician [facility] 01-11-2023 13:45-0500 Body weight 66.67 kg No Primary Care Physician [facility] 01-11-2023 13:45-0500 Diastolic blood pressure 86 mm[Hg] No Primary Care Physician [facility] 01-11-2023 13:45-0500 Systolic blood pressure 129 mm[Hg] No Primary Care Physician [facility] 01-04-2023 15:41-0500 Body height 157.48 cm No Primary Care Physician [facility] 01-04-2023 15:39-0500 Body mass index (BMI) [Ratio] 26.5 kg/m2 No Primary Care Physician [facility] 01-04-2023 15:39-0500 Body weight 65.82 kg No Primary Care Physician [facility] 01-04-2023 15:39-0500 Diastolic blood pressure 88 mm[Hg] No Primary Care Physician [facility] 01-04-2023 15:39-0500 Systolic blood pressure 144 mm[Hg] No Primary Care Physician [facility] 12-14-2022 15:43-0500 Body mass index (BMI) [Ratio] 26 kg/m2 No Primary Care Physician [facility] 12-14-2022 15:43-0500 Body weight 64.52 kg No Primary Care Physician [facility] 12-14-2022 15:43-0500 Diastolic blood pressure 82 mm[Hg] No Primary Care Physician [facility] 12-14-2022 15:43-0500 Systolic blood pressure 118 mm[Hg] No Primary Care Physician [facility] 12-07-2022 15:20-0400 Body mass index (BMI) [Ratio] 25.8 kg/m2 No Primary Care Physician [facility] 12-07-2022 15:20-0400 Body weight 64.12 kg No Primary Care Physician [facility] 12-07-2022 15:20-0400 Diastolic blood pressure 72 mm[Hg] No Primary Care Physician [facility] 12-07-2022 15:20-0400 Systolic blood pressure 132 mm[Hg] No Primary Care Physician [facility] 11-30-2022 15:13-0400 Body height 157.48 cm No Primary Care Physician [facility] 11-30-2022 15:13-0400 Body mass index (BMI) [Ratio] 25.6 kg/m2 No Primary Care Physician [facility] 11-30-2022 15:13-0400 Body weight 63.55 kg No Primary Care Physician [facility] 11-30-2022 15:13-0400 Diastolic blood pressure 85 mm[Hg] No Primary Care Physician [facility] 11-30-2022 15:13-0400 Systolic blood pressure 135 mm[Hg] No Primary Care Physician [facility] 11-19-2022 08:59-0400 Body mass index (BMI) [Ratio] 25 kg/m2 No Primary Care Physician [facility] 11-19-2022 08:59-0400 Body weight 62.19 kg No Primary Care Physician [facility] 11-19-2022 08:59-0400 Diastolic blood pressure 76 mm[Hg] No Primary Care Physician [facility] 11-19-2022 08:59-0400 Systolic blood pressure 118 mm[Hg] No Primary Care Physician [facility] 10-23-2022 15:45-0400 Body mass index (BMI) [Ratio] 24.5 kg/m2 No Primary Care Physician [facility] 10-23-2022 15:45-0400 Body weight 60.83 kg No Primary Care Physician [facility] 10-23-2022 15:45-0400 Diastolic blood pressure 82 mm[Hg] No Primary Care Physician [facility] 10-23-2022 15:45-0400 Systolic blood pressure 133 mm[Hg] No Primary Care Physician [facility] 05-20-2021 13:02-0400 Diastolic blood pressure 80 mm[Hg] [facility] Work Phone: 05-20-2021 13:02-0400 Heart rate 132 /min [facility] Work Phone: 05-20-2021 13:02-0400 Systolic blood pressure 143 mm[Hg] [facility] Work Phone: 05-20-2021 10:46-0400 SaO2% (BldA) [Mass fraction] 98 % [facility] Work Phone: 05-20-2021 07:56-0400 Body temperature 99.1 [degF] [facility] Work Phone: 05-20-2021 07:56-0400 Respiratory rate 16 /min [facility] Work Phone: 05-20-2021 07:51-0400 Body height 157.[address] [facility] Work Phone: 05-20-2021 07:51-0400 Body mass index (BMI) [Ratio] 21.5 kg/m2 [facility] Work Phone: 05-20-2021 07:51-0400 Body weight 53.[address] [facility] Work Phone: Encounters Encounter Date Encounter Type Care Provider Facility Start: 10-06-2024 End: 10-06-2024 Patient encounter procedure Elena Parks CNM -[facility] Work Phone: Start: 10-06-2024 End: 10-06-2024 ambulatory No Primary Care Physician -[facility] Start: 08-21-2024 End: 08-21-2024 Telemedicine consultation with patient Honorio Coffey BRYANNA Work Phone: Telemedicine Comment on above: Acute cystitis witho ut hematuria (Primary Dx) Treatment not availa ble (Primary Dx) Start: 08-21-2024 End: 08-21-2024 [facility] Start: 03-27-2024 End: 03-27-2024 ambulatory [facility] Facility:[facility] Start: 03-27-2024 End: 03-27-2024 Telemedicine consultation with patient Juan J Jesus CARSON Work Phone: Telemedicine Comment on above: Acute cystitis with hematuria (Primary Dx) Start: 03-27-2024 End: 03-27-2024 ambulatory No Primary Care Physician Facility:[facility] Start: 09-15-2023 End: 09-15-2023 ambulatory [facility] [employer]PATCH[employer] Facility:B Start: 01-29-2023 Non-patient / Non-visit No [facility] Physician [facility] Start: 01-28-2023 End: 01-29-2023 ambulatory No Primary Care Physician [facility] Work Phone: Start: 01-28-2023 End: 01-29-2023 Patient encounter procedure No Primary Care Physician [facility] Out[facility] Work Phone: Start: 01-28-2023 Non-patient / Non-visit No [facility] Physician [facility] Start: 01-27-2023 Non-patient / Non-visit No [facility] Physician [facility] Start: 01-27-2023 End: 01-28-2023 Evaluation and management of inpatient No Primary Care Physician [facility] Work Phone: Start: 01-25-2023 End: 01-25-2023 ambulatory No Primary Care Physician [facility] Work Phone: Start: 01-25-2023 End: 01-25-2023 Patient encounter procedure No Primary Care Physician [facility]-Laboratory Work Phone: Start: 01-21-2023 End: 01-21-2023 Patient encounter procedure No Primary Care Physician [facility] Work Phone: Start: 01-19-2023 End: 01-19-2023 ambulatory No Primary Care Physician [facility] Work Phone: Start: 01-19-2023 End: 01-19-2023 Patient encounter procedure No Primary Care Physician [facility]-Ultrasound, [facility] Work Phone: Start: 01-18-2023 End: 01-18-2023 ambulatory No Primary Care Physician [facility] Work Phone: Start: 01-18-2023 End: 01-18-2023 Patient encounter procedure No Primary Care Physician [facility]-Laboratory, Specimen Work Phone: Start: 01-18-2023 End: 01-18-2023 Patient encounter procedure No Primary Care Physician [facility] Work Phone: Start: 01-11-2023 End: 01-11-2023 ambulatory No Primary Care Physician [facility] Work Phone: Start: 01-11-2023 End: 01-11-2023 Patient encounter procedure No Primary Care Physician [facility] Work Phone: Start: 01-04-2023 End: 01-04-2023 ambulatory No Primary Care Physician [facility] Work Phone: Start: 01-04-2023 End: 01-04-2023 Patient encounter procedure No Primary Care Physician [facility]-Laboratory, Specimen Work Phone: Start: 01-04-2023 End: 01-04-2023 Patient encounter procedure No Primary Care Physician [facility] Work Phone: Start: 12-14-2022 End: 12-14-2022 Patient encounter procedure No Primary Care Physician [facility] Work Phone: Start: 12-07-2022 End: 12-07-2022 Patient encounter procedure No Primary Care Physician [facility] Work Phone: Start: 11-30-2022 End: 11-30-2022 ambulatory No Primary Care Physician [facility] Work Phone: Start: 11-30-2022 End: 11-30-2022 Patient encounter procedure No Primary Care Physician [facility]Labor[facility] Work Phone: Start: 11-30-2022 End: 11-30-2022 Patient encounter procedure No Primary Care Physician [facility] Work Phone: Start: 11-19-2022 End: 11-19-2022 Patient encounter procedure No Primary Care Physician [facility] Work Phone: Start: 11-11-2022 End: 11-11-2022 Patient encounter procedure No Primary Care Physician [facility] Work Phone: Start: 10-23-2022 End: 10-23-2022 Patient encounter procedure No Primary Care Physician [facility] Work Phone: Start: 08-12-2022 End: 08-12-2022 ambulatory [facility] Work Phone: Start: 08-12-2022 End: 08-12-2022 Patient encounter procedure [facility]-Laboratory, [place] 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 Off Start: 07-14-2022 End: 07-14-2022 ambulatory [facility] Work Phone: Start: 07-14-2022 End: 07-14-2022 Patient encounter procedure [facility]-Laboratory, [place] 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 Off Start: 06-03-2022 End: 06-03-2022 ambulatory [facility] Work Phone: Start: 06-03-2022 End: 06-03-2022 Patient encounter procedure [facility]-Laboratory, [place] 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 Off Start: 03-20-2022 End: 03-20-2022 ambulatory [facility] Work Phone: Start: 03-20-2022 End: 03-20-2022 Patient encounter procedure [facility], [place] 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 Off Start: 05-28-2021 End: 05-28-2021 Patient encounter procedure [facility]-Laboratory, [place] 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 Off Start: 05-20-2021 End: 05-20-2021 Evaluation and management of inpatient [facility]-Medical Surgical 3 Start: 05-01-2021 End: 05-01-2021 Patient encounter procedure [facility]-Laboratory, [place] 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 Off Start: 04-15-2021 End: 04-15-2021 Patient encounter procedure [facility]-Laboratory, Specimen Start: 02-16-2018 Patient encounter procedure Blake Wells Facility:[facility] Procedures Date Procedure Procedure Detail Performing Clinician Start: 01-19-2023 Ultrasound scan for growth No Primary Care Physician Start: 01-18-2023 Group B Streptococcu s Culture No Primary Care Physician Start: 07-14-2022 Urine culture Start: 05-20-2021 End: 05-20-2021 Viral antigen assay Start: 05-20-2021 Dilation and curetta ge of uterus Start: 05-01-2021 Urine culture Urine culture Plan of Treatment Date Care Activity Detail Author Start: 11-30-2032 Urine microalbumin profile [facility] Start: 10-09-2024 Influenza vaccination Influenza Vaccine (#1) [facility] Start: 10-06-2024 Beta 2 glycoprotein 1 Ab IgA and IgG and IgM panel - Serum [facility] Start: 10-06-2024 Cardiolipin IgG and IgM panel - Serum [facility] Start: 10-06-2024 Choriogonadotropin ( test) [Presence] in Serum or Plasma [facility] Start: 10-06-2024 Hemoglobin A1c/Hemoglobin.total in Blood [facility] Start: 10-06-2024 Lupus anticoagulant assay [facility] Start: 10-06-2024 Thyroid stimulating hormone measurement [facility] Start: 10-10-2023 Covid-19 Vaccine ( season) Covid-19 Vaccine () [facility] Start: 10-10-2023 Influenza vaccination Influenza Vaccine (#1) [facility] Start: 01-29-2023 End: 01-29-2023 [facility] Start: 01-29-2023 Vital signs measurements [facility] Start: 01-28-2023 Patient discharge [facility] Start: 01-27-2023 Administration of medication [facility] Start: 01-27-2023 Application of ice collar, cap or bag [facility] Start: 01-27-[address] [facility] Start: 01-27-2023 Introduction of urinary catheter [facility] Start: 01-27-2023 Measuring intake and output [facility] Start: 01-27-2023 Notification of physician [facility] Start: 01-27-2023 Procedure discontinued [facility] Start: 01-27-2023 Provision of activity privileges [facility] Start: 01-27-2023 Vital signs measurements [facility] Start: 01-27-2023 [facility] Start: 01-27-2023 Admission procedure [facility] Start: 11-11-2022 [facility] Start: 05-20-2021 Anesthesia incomplete/missed ANESTH INC/MISSED AB PROC [facility] Work Phone: Start: 05-20-2021 Tx incomplete any trimester surgical TREATMENT OF M[facility]CARRI[facility] – [facility] Work Phone: Start: 05-19-2021 Screening for malignant neoplasm of cervix Cervical Cancer Screening [facility] Start: 2010 Anxiety Screening Anxiety Screening [facility] Start: 2010 Depression Screening Depression Screening [facility] Start: 2010 Hepatitis C screening Hepatitis C Screening [facility] Start: 2010 HIV screening HIV Screening [facility] Beta 2 glycoprotein 1 IgA Ab [Presence] in Serum [facility] Beta 2 glycoprotein 1 IgG Ab [Presence] in Serum [facility] Beta 2 glycoprotein 1 IgM Ab [Presence] in Serum [facility] Cardiolipin IgG Ab [Units/volume] in Serum or Plasma [facility] Cardiolipin IgM Ab [Units/volume] in Serum or Plasma [facility] Lupus anticoagulant screening test [facility] Partial thromboplast in time ratio [facility] Patient Education After a Vaginal [facility] Work Phone: Patient referral [facility] Work Phone: Streptococcus agalac tiae [Presence] in Unspecified specimen by Organism specific culture [facility] Thrombin time [facility] Ultrasound scan for growth [facility] Immunizations Immunization Date Immunization Notes Care Provider Christina whelan 11-30-2022 tetanus toxoid, redu maximino diphtheria toxoid, and acellular pertussis vaccine, adsorbed No Primary Care Physician [facility] 11-19-2022 influenza, injectabl e, quadrivalent, preservative free No Primary Care Physician [facility] 11-19-2022 influenza virus vaccine, unspecified formulation Juan J Bordonaro PA-C Work Phone: [facility] 11-17-2019 Influenza virus vaccine [facility] 03-05-2019 tetanus toxoid, redu maximino diphtheria toxoid, and acellular pertussis vaccine, adsorbed [facility] 12-26-2010 influenza virus vaccine, live, attenuated, for intranasal use Juan J Bordonaro PA-C Work Phone: [facility] Work Phone: 12-04-2008 novel [id number], all formulations Juan J Bordonaro PA-C Work Phone: [facility] 12-08-2006 influenza virus vaccine, unspecified formulation Juan J Bordonaro PA-C Work Phone: [facility] 12-08-2005 influenza virus vaccine, unspecified formulation Juan J Bordonaro PA-C Work Phone: [facility] Work Phone: 09-10-2005 Meningococcal, MCV4, unspecified conjugate formulation(groups A, C, Y and W-135) Juan J Bordonaro PA-C Work Phone: [facility] 09-10-2005 tetanus toxoid, redu maximino diphtheria toxoid, and acellular pertussis vaccine, adsorbed Juan J Bordonaro PA-C Work Phone: [facility] 12-18-2004 influenza virus vaccine, unspecified formulation Juan J Bordonaro PA-C Work Phone: [facility] Work Phone: 11-21-2003 influenza virus vaccine, unspecified formulation Juan J Bordonaro PA-C Work Phone: [facility] 12-29-2002 influenza virus vaccine, unspecified formulation Juan J Bordonaro PA-C Work Phone: [facility] 10-02-1998 diphtheria, tetanus toxoids and acellular pertussis vaccine Juan J Bordonaro PA-C Work Phone: [facility] 10-02-1998 measles, mumps and rubella virus vaccine Juan J Bordonaro PA-C Work Phone: [facility] 10-02-1998 poliovirus vaccine, inactivated Juan J Bordonaro PA-C Work Phone: [facility] 1996 chicken pox (disease) Salvat ore Bordonaro PA-C Work Phone: [facility] 06-04-1994 diphtheria, tetanus toxoids and acellular pertussis vaccine Juan J Bordonaro PA-C Work Phone: [facility] 06-04-1994 haemophilus influenz ae type b vaccine, HbOC conjugate Juan J Bordonaro PA-C Work Phone: [facility] 06-04-1994 poliovirus vaccine, inactivated Juan J Bordonaro PA-C Work Phone: [facility] 04-08-1994 haemophilus influenz ae type b vaccine, HbOC conjugate Juan J Bordonaro PA-C Work Phone: [facility] 04-08-1994 hepatitis B vaccine, pediatric or pediatric/adolescent dosage Juan J Bordonaro PA-C Work Phone: [facility] 04-08-1994 measles, mumps and rubella virus vaccine Juan J Bordonaro PA-C Work Phone: [facility] 06-24-1993 diphtheria, tetanus toxoids and acellular pertussis vaccine Juan J Bordonaro PA-C Work Phone: [facility] 06-24-1993 haemophilus influenz ae type b vaccine, HbOC conjugate Juan J Bordonaro PA-C Work Phone: [facility] 05-07-1993 diphtheria, tetanus toxoids and acellular pertussis vaccine Juan J Bordonaro PA-C Work Phone: [facility] 05-07-1993 haemophilus influenz ae type b vaccine, HbOC conjugate Juan J Bordonaro PA-C Work Phone: [facility] 05-07-1993 poliovirus vaccine, inactivated Juan J Bordonaro PA-C Work Phone: [facility] 02-20-1993 diphtheria, tetanus toxoids and acellular pertussis vaccine Juan J Bordonaro PA-C Work Phone: [facility] 02-20-1993 haemophilus influenz ae type b vaccine, HbOC conjugate Juan J Bordonaro PA-C Work Phone: [facility] 02-20-1993 hepatitis B vaccine, pediatric or pediatric/adolescent dosage Juan J Bordonaro PA-C Work Phone: [facility] 02-20-1993 poliovirus vaccine, inactivated Juan J Bordonaro PA-C Work Phone: [facility] 1992 hepatitis B vaccine, pediatric or pediatric/adolescent dosage Juan J Bordonaro PA-C Work Phone: [facility] Payers Date Payer Category Payer Self-pay [id number] 2023 Unknown [id number] 2018 Private Health Insurance [id number] 2016 Unknown [id number] 1992 Unknown [id number] Unknown [id number] Unknown [id number] Unknown [id number] Unknown [id number] Social History Date Type Detail Facility Start: 04-20-2020 End: 01-21-2023 Tobacco smoking status NHIS Unknown if ever smoked [facility] Start: 1990 Sex Assigned At Female W [facility] Start: 05-06-2015 End: 09-22-2024 Tobacco smoking status VTIS Never smoked tobacco [facility] Start: 05-06-2015 Tobacco use and exposure Smokeless tobacco non-user [facility] Start: 05-19-2018 End: 08-21-2024 Alcoholic beverage intake Current non-drinker of alcohol (finding) [facility] Start: 05-19-2018 End: 01-14-2020 History of Social function [facility] Start: 05-19-2018 End: 01-14-2020 Tobacco use panel [facility] National Score (1-10 0), lower number is lower risk Not on file [facility] Start: 1992 Sex assigned at Not on file [facility] Goals Date Patient Goal Desired Activity /State Functional Status Date Assessment Result Facility 05-20-2021 Functional status Chair [facility] Work Phone: 09-11-2014 Are you deaf, or do you have serious difficulty hearing No 09/11/2014 12:38 PM Caitlyn Payton Cma No [facility] 09-11-2014 Are you blind, or do you have serious difficulty seeing, even when wearing glasses No 09/11/2014 12:38 PM Caitlyn Payton Cma No [facility] 09-11-2014 Do you have serious difficulty walking or climbing stairs No 09/11/2014 12:38 PM Caitlyn Payton Cma No [facility] 09-11-2014 Do you have difficul ty dressing or bathing No 09/11/2014 12:38 PM Caitlyn Payton Cma No [facility] 09-11-2014 Because of a physica l, mental, or emotional condition, do you have difficulty doing errands alone such as visiting a physician's office or shopping No 09/11/2014 12:38 PM EDT Caitlyn Parks Cma No [facility] Mental Status Date Assessment Result Facility 01-29-2023 Cognitive function Appropriate;Cooperativ e [facility] Work Phone: 05-20-2021 Cognitive function Level Of Cons ciousness Sedated [facility] Work Phone: 09-11-2014 Because of a physica l, mental, or emotional condition, do you have serious difficulty concentrating, remembering, or making decisions No 09/11/2014 12:38 PM EDT Caitlyn Parks Cma No [facility] Clinical Notes 04-15-2021 to 10-06-2024 Addendum Note - Honorio Coffey APRN.CNP - 08/21/2024 9:17 PM EDTAddendum Note - Honorio Coffey APRN.CNP - 08/21/2024 9:17 PM EDTGHonorio burch APRN.CNP - 08/21/2024 7:08 PM EDT Note Date & Type Note Facility 10-06-2024 Progress note [facility] 08-21-2024 Note Addended by: HONORIO COFFEY on: 08/21/2024 09:17 PM Modules accepted: Orders [facility] 08-21-2024 Miscellaneous Notes Addended by: HONORIO COFFEY on: 08/21/2024 09:17 PM Modules accepted: Orders documented in this encounter [facility] 08-21-2024 Note HNO ID: [id number] Author: HONORIO COFFEY APRN.CNP Service: ? Author Type: Nurse Practitioner Type: Progress Notes Filed: 08/21/2024 19:09 Note Text: Patient had quick medication question from previous visit. This appt canceled. Honorio Coffey APRN.CNP [facility] 08-21-2024 History of Presen t illness Narrative Patient had quick medication question from previous visit. This appt canceled. Honorio Coffey APRN.CNP documented in this encounter [facility] 08-21-2024 Instructions Honorio Coffey APRN.CNP - 08/21/2024 6:40 PM EDT Urinary Tract Infection 1. Symptoms consistent with UTI 2. Start Bactrim 1 tablet twice daily for 3 days 3 Patient instructed to increase fluid intake through out the day. 4. May use AZO per package instructions over the counter for bladder spasm/discomfort. 5. Express Care if symptoms not resolved or markedly improved within 48 hours, or EMERGENCY ROOM if fever, chills, or flank pain develop. GENERAL INFORMATION: A urinary tract infection (UTI) is an infection of the bladder or kidneys. A bladder infection, called cystitis, is the more common type. If the infection travels up to the kidneys, it is called pyelonephritis. This can be more serious. UTIs are a common problem in women. Having sexual relations can leave a woman more susceptible to developing a UTI, but it is not sexually transmitted like gonorrhea. Some women have a problem with recurrent UTIs. INSTRUCTIONS: 1. If your doctor prescribed an antibiotic to treat the UTI. Take exactly as directed. Be sure to take all the medication prescribed, even if your symptoms disappear. If you stop treatment early, the infection may not be fully treated and the symptoms could come back again. 2. Get plenty of rest. You may take acetaminophen for fever and aches. 3. Drink 6 to 8 glasses of fluids, especially water, every day. This helps wash out germs from your urinary tract. Cranberry juice or other sources of vitamin C are also good for you. 4. Urinate often, as soon as you feel the urge. Empty your bladder completely. Urinate before and after you have sex. 5. Always wipe from front to back after going to the bathroom. This pushes germs away from your bladder, rather than towards it. 6. Showers are better than baths, and you should wash the genital area daily. Avoid bubble bath or bath oils if you do take a bath. 7. Wear underwear and pantyhose with a cotton crotch. GO TO THE EMERGENCY ROOM IF: 1. You have a temperature over 102F (38.8C) after 48 hours on medication. 2. You notice blood in your urine. 3. Your symptoms don't improve in 2 days. 4. You develop nausea, vomiting, diarrhea, or a rash. 5. You develop new or unexplained symptoms. These may be related to the medication you are taking. 6. Your symptoms return after you finish treatment. GO TO THE EMERGENCY DEPARTMENT IF: You develop vomiting and can't keep your medication or fluids down. documented in this encounter [facility] 08-21-2024 Note HNO ID: [id number] Author: HONORIO COFFEY APRN.CNP Service: ? Author Type: Nurse Practitioner Type: Progress Notes Filed: 08/21/2024 18:41 Note Text: Telemedicine Visit - Distance Health Virtual Visit Note Patient seen on [employer] Video Visit platform. Location of patient: [place] I have communicated my name and active licensure. The patient's identity and physical location were verified at the time of this visit. Either the patient or their legal pharmaceutical representative has been informed of the risks and benefits of -- and alternatives to -- treatment through a remote evaluation and consents to proceed with the evaluation remotely. History of Present Illness Ananya Mg is a 33 year old female with a history of UTI symptoms starting today. Urinary symptoms ROS: Positive for: Dysuria, Increase in frequency of urination, Sense of incomplete void, and Urgency Negative for: Abdominal pain , Back/Flank pain, Bladder pressure, Blood in urine, Cloudy urine, Diarrhea, Fevers, Malodorous urine, Vaginal itch or discharge, and Vomiting /Lactating: : No: Lactating: No Sexually active: Yes: STI concerns: No LMP: 2 weeks ago Number of previous UTI's in last 6 months: 1 Number of previous UTI's in last 12 months: 0 Alleviating Factors include none. PAST MEDICAL HISTORY Diagnosis Date PM - PAST MEDICAL HISTORY OF 09/10/06 normal color vision PAST SURGICAL HISTORY Procedure Laterality Date EXTRACTION ERUPTED TOOTH/EXR NONE FAMILY HISTORY Problem Relation Age of Onset Diabetes Paternal Grandfather Diabetes Sister Social History Tobacco Use Smoking status: Never Smokeless tobacco: Never Substance Use Topics Alcohol use: No Drug use: No ALLERGIES No Known Allergies Current Outpatient Medications Medication Sig sertraline (ZOLOFT) 100 mg tablet Take 1 tablet by mouth once daily. No current facility-administered medications for this visit. Video Exam (Examination performed via Video enabled technology) General Appearance: Well in appearance Alert, oriented, pleasant, in NAD: Yes Ill appearing: No Lethargic appearing: No Respiratory distress: No Abdomen: non-tender by self palpation CVA Tenderness: non-tender bilaterally by self palpation ASSESSMENT/PLAN: 1. Acute cystitis without hematuria - ICD9: 595.0, ICD10: N30.00 - SULFAMETHOXAZOLE 800 MG-TRIMETHOPRIM 160 MG TABLET 1. Symptoms consistent with UTI 2. Start Bactrim 1 tablet twice daily for 3 days 3 Patient instructed to increase fluid intake through out the day. 4. May use AZO per package instructions over the counter for bladder spasm/discomfort. 5. Express Care if symptoms not resolved or markedly improved within 48 hours, or EMERGENCY ROOM if fever, chills, or flank pain develop. Red flags discussed for in person care and follow up, including but not limited to worsening symptoms, hematuria, new back pain, fever, chills, or other concerning symptoms All questions answered Differential Diagnoses - Acute cystitis without hematuria is more likely for the following reason(s): suggested by HANDP - Pyelonephritis is less likely for the following reason(s): HANDP not suggestive Disposition The patient was discharged. OTC Medications were advised: AZO ashutosh Coffey APRN.[facility] 08-21-2024 History of Presen t illness Narrative Telemedicine Visit - Distance Health Virtual Visit Note Patient seen on [employer] Video Visit platform. Location of patient: [place] I have communicated my name and active licensure. The patient's identity and physical location were verified at the time of this visit. Either the patient or their legal pharmaceutical representative has been informed of the risks and benefits of -- and alternatives to -- treatment through a remote evaluation and consents to proceed with the evaluation remotely. History of Present Illness Ananya Mg is a 33 year old female with a history of UTI symptoms starting today. Urinary symptoms ROS: Positive for: Dysuria, Increase in frequency of urination, Sense of incomplete void, and Urgency Negative for: Abdominal pain , Back/Flank pain, Bladder pressure, Blood in urine, Cloudy urine, Diarrhea, Fevers, Malodorous urine, Vaginal itch or discharge, and Vomiting /Lactating: : No: Lactating: No Sexually active: Yes: STI concerns: No LMP: 2 weeks ago Number of previous UTI's in last 6 months: 1 Number of previous UTI's in last 12 months: 0 Alleviating Factors include none. PAST MEDICAL HISTORY Diagnosis Date PMH - PAST MEDICAL HISTORY OF 09/10/06 normal color vision PAST SURGICAL HISTORY Procedure Laterality Date EXTRACTION ERUPTED TOOTH/EXR NONE FAMILY HISTORY Problem Relation Age of Onset Diabetes Paternal Grandfather Diabetes Sister Social History Tobacco Use Smoking status: Never Smokeless tobacco: Never Substance Use Topics Alcohol use: No Drug use: No ALLERGIES No Known Allergies Current Outpatient Medications Medication Sig sertraline (ZOLOFT) 100 mg tablet Take 1 tablet by mouth once daily. No current facility-administered medications for this visit. Video Exam (Examination performed via Video enabled technology) General Appearance: Well in appearance Alert, oriented, pleasant, in NAD: Yes Ill appearing: No Lethargic appearing: No Respiratory distress: No Abdomen: non-tender by self palpation CVA Tenderness: non-tender bilaterally by self palpation ASSESSMENT/PLAN: 1. Acute cystitis without hematuria - ICD9: 595.0, ICD10: N30.00 - SULFAMETHOXAZOLE 800 MG-TRIMETHOPRIM 160 MG TABLET 1. Symptoms consistent with UTI 2. Start Bactrim 1 tablet twice daily for 3 days 3 Patient instructed to increase fluid intake through out the day. 4. May use AZO per package instructions over the counter for bladder spasm/discomfort. 5. Express Care if symptoms not resolved or markedly improved within 48 hours, or EMERGENCY ROOM if fever, chills, or flank pain develop. Red flags discussed for in person care and follow up, including but not limited to worsening symptoms, hematuria, new back pain, fever, chills, or other concerning symptoms All questions answered Differential Diagnoses - Acute cystitis without hematuria is more likely for the following reason(s): suggested by H&P - Pyelonephritis is less likely for the following reason(s): H&P not suggestive Disposition The patient was discharged. OTC Medications were advised: LOLY Coffey APRN.CAM documented in this encounter [facility] 03-27-2024 Note HNO ID: [id number] Author: JUAN J LEE PA-C Service: ? Author Type: Physician Storage Consultant Type: Progress Notes Filed: 03/27/2024 18:08 Note Text: Telemedicine Visit - Distance Health Virtual Visit Note Patient seen on [employer] Video Visit platform. Location of patient: [place] I have communicated my name and active licensure. The patient's identity and physical location were verified at the time of this visit. Either the patient or their legal pharmaceutical representative has been informed of the risks and benefits of -- and alternatives to -- treatment through a remote evaluation and consents to proceed with the evaluation remotely. History of Present Illness Ananya Mg is a 33 year old female with a history of UTI symptoms for 1 days. Urinary symptoms ROS: Positive for: Bladder pressure, Blood in urine, Dysuria, Increase in frequency of urination, and Urgency Negative for: Back/Flank pain and Fevers /Lactating: : No: Lactating: No Sexually active: Yes: STI concerns: No Number of previous UTI's in last 6 months: 0 Number of previous UTI's in last 12 months: 0 Alleviating Factors include Increasing fluids with minimal relief in symptoms. PAST MEDICAL HISTORY Diagnosis Date PM - PAST MEDICAL HISTORY OF 09/10/06 normal color vision PAST SURGICAL HISTORY Procedure Laterality Date EXTRACTION ERUPTED TOOTH/EXR NONE FAMILY HISTORY Problem Relation Age of Onset Diabetes Paternal Grandfather Diabetes Sister Social History Tobacco Use Smoking status: Never Smokeless tobacco: Never Substance Use Topics Alcohol use: No Drug use: No ALLERGIES No Known Allergies Current Outpatient Medications Medication Sig GIANVI, 28, 3-0.02 mg per tablet TAKE 1 TABLET ONCE DAILY No current facility-administered medications for this visit. Video Exam (Examination performed via Video enabled technology) General Appearance: Alert, oriented, pleasant, in NAD: Yes Ill appearing: No Lethargic appearing: No Respiratory distress: No Abdomen: non-tender by self palpation CVA Tenderness: non-tender bilaterally by self palpation ASSESSMENT/PLAN: 1. Acute cystitis with hematuria - ICD9: 595.0, ICD10: N30.01 Advised urine cult to r/o stone, malignancy Pt verbalized understanding, declines will f/u with UA micro with PCP after tx. Macrobid as written for UTI Red flags discussed for in person care and follow up, including but not limited to worsening symptoms, hematuria, new back pain, fever, chills, or other concerning symptoms All questions answered Juan J Lee PA-C [facility] 03-27-2024 History of Presen t illness Narrative Telemedicine Visit - Distance Health Virtual Visit Note Patient seen on [employer] Video Visit platform. Location of patient: [place] I have communicated my name and active licensure. The patient's identity and physical location were verified at the time of this visit. Either the patient or their legal pharmaceutical representative has been informed of the risks and benefits of -- and alternatives to -- treatment through a remote evaluation and consents to proceed with the evaluation remotely. History of Present Illness Ananya Mg is a 33 year old female with a history of UTI symptoms for 1 days. Urinary symptoms ROS: Positive for: Bladder pressure, Blood in urine, Dysuria, Increase in frequency of urination, and Urgency Negative for: Back/Flank pain and Fevers /Lactating: : No: Lactating: No Sexually active: Yes: STI concerns: No Number of previous UTI's in last 6 months: 0 Number of previous UTI's in last 12 months: 0 Alleviating Factors include Increasing fluids with minimal relief in symptoms. PAST MEDICAL HISTORY Diagnosis Date PMH - PAST MEDICAL HISTORY OF 09/10/06 normal color vision PAST SURGICAL HISTORY Procedure Laterality Date EXTRACTION ERUPTED TOOTH/EXR NONE FAMILY HISTORY Problem Relation Age of Onset Diabetes Paternal Grandfather Diabetes Sister Social History Tobacco Use Smoking status: Never Smokeless tobacco: Never Substance Use Topics Alcohol use: No Drug use: No ALLERGIES No Known Allergies Current Outpatient Medications Medication Sig GIANVI, 28, 3-0.02 mg per tablet TAKE 1 TABLET ONCE DAILY No current facility-administered medications for this visit. Video Exam (Examination performed via Video enabled technology) General Appearance: Alert, oriented, pleasant, in NAD: Yes Ill appearing: No Lethargic appearing: No Respiratory distress: No Abdomen: non-tender by self palpation CVA Tenderness: non-tender bilaterally by self palpation ASSESSMENT/PLAN: 1. Acute cystitis with hematuria - ICD9: 595.0, ICD10: N30.01 Advised urine cult to r/o stone, malignancy Pt verbalized understanding, declines will f/u with UA micro with PCP after tx. Macrobid as written for UTI Red flags discussed for in person care and follow up, including but not limited to worsening symptoms, hematuria, new back pain, fever, chills, or other concerning symptoms All questions answered Juan J Lee PA-C documented in this encounter [facility] 01-28-2023 Discharge summary Note Date/Time January 28, 2023 12:37pm [facility] Medical Records Department [address] [place] [address] Instructions for Home/Discharge Instructions 01/28/23 1237 MR#: [id number] Acct: [id number] Name: ANANYA MG Rep # :[id number] : 1990 32 From: Elena Parks CNM PCP: Care Physician,No Primary Status :ADM IN Discharge Instructions Diet Discharge Diet: No restrictions Activity Discharge Activity: Return to Normal Activity May resume sexual activity in: 4-6 weeks Dressing / Incision Call your doctor if your incision/area has: Continuous Slow Oozing, Sudden Increased Bleeding, Increased Pain/ Swelling, Increased Redness and Foul Smelling Discharge Call your doctor if you observe: Fever of 101 or Higher, Coldness, Increased Pain, Numbness or Tingling, Change in Color, Inability to urinate, Inability to have a bowel movement, Using more than 1 pad per hour, Shortness of breath, Dizziness, Fainting spells, Swelling in the ankles, Chest pain, Increased palpitations (irregular heartbeat), Calf discomfort and Uncontrolled pain Follow Up Care Please Follow Up With: Aundrea Byrd DO When: Please call the office to schedule your follow up appointment in 6 weeks. If you had high blood pressure please call to schedule an appointment in 2 weeks. Test Results: Test results from this visit will be discussed in further detail at your follow-up appointment, if applicable. Discharge Plan Admission Admit Date/Time: 01/27/23 06:49 Primary Reason for Your Visit: induction of labor/ vaginal delivery Attending Provider: Aundrea Byrd Primary Care Provider: Pedro Physician,Corrine Primary Discharge Orders/Prescriptions Prescriptions: New naproxen 500 mg tablet 500 mg PO BID PRN (Reason: pain) Qty: 30 0RF Continued DHA 200 mg capsule PO Referrals / Follow Up: Care Physician,No Primary [Primary Care Provider] - Disposition Disposition (needs filled in before D/C Order can be placed): Home, Self Care 01/28/23 1237<Electronically signed by Elena Parks CNM>Elena Parks CNM CC: No Primary Care Physician ~ Signed [facility] Work Phone: 1(876) 426-775012-21-2023 Progress note Author Elena Parks [facility] January 28, 2023 12:37pm Note Date/Time January 28, 2023 12:37pm [facility] Medical Records Department [address] [place] [id number] Progress Note - OBGYN 01/28/23 1233 MR#: [id number] Acct: [id number] Name: ANANYA MG Rep # :[id number] : 1990 32 From: Elena Parks CNM PCP: Care Physician,No Primary Status :ADM IN Location: [place] [id number] Subjective Subjective Patient doing well without complaints. Tolerating PO. Ambulating and voiding without difficulty. Feeding well. Denies chest pain, shortness of breath, calf pain/swelling, fevers, chills, lightheadedness. Objective Data Objective Data Vital Signs: Vital Signs Temp Pulse Resp BP Pulse Ox O2 Del Method 97.3 F L 77 16 147/80 H 100 Room Air 01/28/23 12:08 01/28/23 12:08 01/28/23 12:08 01/28/23 12:08 01/28/23 03:42 01/28/23 03:42 Oxygen Delivery Method Room Air Weight: 146 lb Body Mass Index (BMI) 26.6 Intake & Output: Intake and Output for Last 24 Hours 01/26/23 01/27/23 01/28/23 23:59 23:59 23:59 Intake Total 2500.00 / 2500.00 Output Total 1480 / 1480 Balance 1020.00 / 1020.00 Lab / Micro Data Attestation: I reviewed the patient's lab results. 01/27/23 07:50 ROS Constitutional Constitutional: Reports systems reviewed and no addt'l complaints, except as documented; Denies anorexia or headache(s) Cardiovascular Cardiovascular: Reports systems reviewed and no addt'l complaints, except as documented; Denies dizziness, dyspnea, nausea or tachypnea Respiratory/Chest Respiratory/Chest: Reports systems reviewed and no addt'l complaints, except as documented; Denies cough, dyspnea, shortness of breath at rest or tachypnea Gastrointestinal Gastrointestinal: Reports systems reviewed and no addt'l complaints, except as documented; Denies abdominal pain, constipation or nausea Genitourinary Genitourinary: Reports systems reviewed and no addt'l complaints, except as documented; Denies burning urination, difficulty urinating, dysuria, urinary frequency or urinary incontinence Musculoskeletal Musculoskeletal: Reports systems reviewed and no addt'l complaints, except as documented Integumentary Integumentary: Reports systems reviewed and no addt'l complaints, except as documented Neurologic Neurologic: Reports systems reviewed and no addt'l complaints, except as documented; Denies abnormal speech, dizziness or headache(s) Psychiatric Psychiatric: Reports systems reviewed and no addt'l complaints, except as documented Endocrine Endocrinology: Reports systems reviewed and no addt'l complaints, except as documented Hematologic/Lymphatic Hematologic/Lymphatic: Reports systems reviewed and no addt'l complaints, exceptas documented Physical Exam Const alert, oriented x3 and no apparent distress Neck full ROM Resp normal respiratory effort, normal air movement and no retractions Effort and Inspection: able to speak in complete sentences and symmetric chest movement GI soft to palpation Bladder / Kidney Exam: bladder normal to palpation Uterus Palpation: uterus fundus firm Extremity normal to inspection and full ROM Psych mental status grossly normal, thought process normal and cooperative Assessment & Plan (1) Status post normal vaginal delivery: PLAN: s/p PPD # 1 1. routine post delivery care 2. breast feeding- support given 3. rh positive 4. rubella immune 5. Discharge Home (2) Labile blood pressure: COMMENT: PLAN: continue to monitor BP at home x 2 weeks call with BPs 140/80 or higher-consider starting medication if needed If any 160/100 or higher-notify dimension warehouse supervisor provider and present to for treatment Charges/Coding Multi Select Codes Urinary/Genital Urinary/Genital CPT Codes: No Charge 01/28/23 1237 <Electronically signed by Elena Parks CNM> Cosigner Signature (if applicable): CC: ~ Signed [facility] Work Phone: 1(295) 811-425512-20-2023 Discharge summary Author Aundrea Riley [facility] January 27, 2023 5:15pm Note Date/Time January 27, 2023 5:13pm [facility] Medical Records Department [address] [place] [address] Instructions for Home/Discharge Instructions 01/27/23 1713 MR#: [id number] Acct: [id number] Name: ANANYA MG Rep # :[id number] : 1990 32 From: Aundrea Byrd DO PCP: Care Physician,No Primary Status :ADM IN Discharge Instructions Diet Discharge Diet: No restrictions Activity Discharge Activity: Return to Normal Activity, May Not Drive (while taking narcotic pain medications.) and May Shower May resume sexual activity in: 4-6 weeks Dressing / Incision Call your doctor if your incision/area has: Continuous Slow Oozing, Sudden Increased Bleeding, Increased Pain/ Swelling, Increased Redness and Foul Smelling Discharge Follow Up Care Please Follow Up With: Aundrea Byrd DO When: Call [phone] to make an appointment with your doctor in 6 weeks. If you had elevated blood pressure or 4th degree laceration, you will need to be seen in 2 weeks. Test Results: Test results from this visit will be discussed in further detail at your follow- up appointment, if applicable. Discharge Plan Admission Admit Date/Time: 01/27/23 06:49 Primary Reason for Your Visit: induction of labor/ vaginal delivery Attending Provider: Aundrea Byrd Primary Care Provider: Pedro Flores,Corrine Primary Discharge Orders/Prescriptions Prescriptions: New naproxen 500 mg tablet 500 mg PO BID PRN (Reason: pain) Qty: 30 0RF Continued DHA 200 mg capsule PO Referrals / Follow Up: Pedro Physician,No Primary [Primary Care Provider] - Disposition Disposition (needs filled in before D/C Order can be placed): Home, Self Care 01/27/23 1715<Electronically signed by Aundrea Byrd DO>Aundrea Byrd DO CC: No Primary Care Physician ~ Signed [facility] Work Phone: 1(578) 929-554912-20-2023 Procedure [facility] 01-27-2023 Progress note Author Aundreahenri Dentforeign [facility] January 27, 2023 1:39pm Note Date/Time January 27, 2023 1:39pm [facility] Medical Records Department [address] [place] [address] Progress Note 01/27/23 1337 MR#: [id number] Acct: [id number] Name: ANANYA MG Rep # :[id number] : 1990 32 From: Aundrea Byrd DO PCP: Care Physician,No Primary Status :ADM IN Location: [place] [address] Progress Note pt is laying comfortably in bed. Baker bulb fell out at 9:30 this am and she consents to AROM. current tracing: FHT: Moderate variability reactive no decelerations category I tracing [place]: q2 min Contractions cx: 4/70/-1, membranes ruptured with clear fluid return reviewed tracing abnormalities since last note: no changes A/P: plan for epidural soon. fluid bolus ordered. 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 Maternal Data Information ELTON Calculator Estimated Delivery Date Method Current WG Current Estimate 02/17/23 LMP (Certain) 37w 0d PFSH PFSH Medical History Gestational diabetes Orthostatic syncope Home Medications docosahexaenoic acid 200 mg capsule ( DHA) mg PO 10/23/22 [History Last Taken Unknown] Allergy/AdvReac Type Severity Reaction Status Date / Time No Known Allergies Allergy Verified 01/25/23 15:35 Family History Sister Diabetes type 1 Grandfather Diabetes type 2 Grandmother Multiple myeloma Surgical History H/O dilation and curettage Social History Smoking Status: Never smoker alcohol intake: never substance use type: does not use caffeine: Yes what type of physical activity do you participate in: walking frequency: 3-4 times per week seatbelt use: always do you feel safe at home: Yes additional social history: - Julian History 4 Elective abortions Hx Para 1 Spontaneous abortions 2 Hx # Term Pregnancies Ectopic pregnancies Hx # Pregnancies Multiple births # of living children 1 Past Pregnancies Del. Date Name GA/Weeks Outcome Route Bth Weight Infant Gen Labor Lgth Anesthesia Del Locatn Provider FOB 04/20/20 Ann Marie 39 live - full term 6lbs 6oz Female Dr. Roz Jordan Delivery Date: 04/20/20 Last Updated by: Vane Wallis Gestational diabetes Visit Details Expected Delivery Route/Plan Labor Preferences- CB/BF classes: declines labor support person: Julian labor intervention preferences: [] pain management options preferred: epidural cut cord/dad catch: yes : yes PP control planned: discussed discussed possible routes of delivery and associated risks: [] special requests: [] Plans Covid status: initial 2 vaccines Flu vaccine: given Tdap vaccine: 11/30/22 Rhogam: NA LARC form signed: yes Problem list reviewed and updated with the most current plan of care details and appropriate orders placed. Relevant counseling for the gestational age provided. Continue routine care and follow up unless otherwise noted in visit notes/problem list details OB Flowsheet Initial Weight: Not Recorded Date -?-?-?-?-?-?-?-?-?-?-?-?- EGA Weight BP Urine Prot -?-?-?-?-?-?-?-?-?-?-?-?- Glucose FHR FuHt Pres Dilation -?-?-?-?-?-?-?-?-?-?-?-?- Effaced St Visit Note 10/23/22 -?-?-?-?-?-?-?-?-?-?-?-?- 23w 2d 134 lb 2 oz 133/82 Nega tive -?-?-?-?-?-?-?-?-?-?-?-?- Negative 145 24 -?-?-?-?-?-?-?-?-?-?-?-?- Sm- MITCHELL from mon arch. no vb cramping 11/19/22 -?-?-?-?-?-?-?-?-?-?-?-?- 27w 1d 137 lb 2 oz 118/76 Nega tive -?-?-?-?-?-?-?-?-?-?-?-?- Negative 141 27 -?-?-?-?-?-?-?-?-?-?-?-?- MH-NO VB, LOF. G ood FM. Flu vaccine, larc. 11/30/22 -?-?-?-?-?-?-?-?-?-?-?-?- 28w 5d 140 lb 2 oz 135/85 Nega tive -?-?-?-?-?-?-?-?-?-?-?-?- Negative 142 28 -?-?-?-?-?-?-?-?-?-?-?-?- JV- bp slightly elevated. rpt was 130/80. collecting PIH labs now. 12/14/22 -?-?-?-?-?-?-?-?-?-?-?-?- 30w 5d 142 lb 4 oz 118/82 Nega tive -?-?-?-?-?-?-?-?-?-?-?-?- Negative 149 30 -?-?-?-?-?-?-?-?-?-?-?-?- MH-No Vb, LOF. G ood FM. BP WNl 01/04/23 -?-?-?-?-?-?-?-?-?-?-?-?- 33w 5d 145 lb 2 oz 144/88 Nega tive -?-?-?-?-?-?-?-?-?-?-?-?- Negative 147 33 -?-?-?-?-?-?-?-?-?-?-?-?- JV- bp mildly el evated again today. pt is asymptomatic, rpt is 138/84 laying and 132/87 sitting. will rpt prot: cr JV- bp mildly elevated again today. pt is asymptomatic, rpt is 138/84 laying and 132/87 sitting. will rpt prot: cr and start seeing her weekly to monitor closely. pre-e symptoms and signs discussed. 01/11/23 -?-?-?-?-?-?-?-?-?-?-?-?- 34w 5d 147 lb 129/86 Negative -?-?-?-?-?-?-?-?-?-?-?-?- Negative 140 34 Cephalic -?-?-?-?-?-?-?-?-?-?-?-?- JV- rpt bp was n ormal, but first was still elevated. rpt pih labs. likely will deliver at 37 weeks if continues to have labile pressures. 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 NST reactive. plan to start home bp monitoring. induction at 37 weeks set up. Return with bp log and for NSt. 01/21/23 -?-?-?-?-?-?-?-?-?-?-?-?- 36w 1d 146 lb 128/79 Negative -?-?-?-?-?-?-?-?-?-?-?-?- Negative 130 Cephalic -?-?-?-?-?-?-?-?--?-?-?-?- SM- repeat bps n ormal all at home no meds, continue to monitor, will repeat eval early next week, if elevated recommend iol end of next week, if normal may consider expectant management. reviewed preeclampsia precautions 01/25/23 -?-?-?-?-?-?-?-?-?-?-?-?- 36w 5d 148 lb 138/90 -?-?-?-?-?-?-?-?-?-?-?-?- 130 Cephalic -?-?-?-?-?-?-?-?-?-?-?-?- SM- no vb lof go od fm n oregular ctx bps labile but mildly elevated, repeat labs today, gbs today ROS Constitutional Constitutional: Denies change in weight, fatigue, fever(s), headache(s), poor appetite or weakness Eyes Eyes: Denies blurry vision, change in vision, seeing flashes or spots in vision ENT HEENT: Denies dizziness, headache(s), loss taste/smell or sore throat Cardiovascular Cardiovascular: Denies chest pain, dizziness, dyspnea, irregular heart rhythm, leg edema, palpitations, rapid heart rate or vomiting Respiratory/Chest Respiratory/Chest: Denies chest tightness, cough, dyspnea or breast pain Gastrointestinal Gastrointestinal: Denies abdominal pain, anorexia, constipation, cramping, diarrhea, hemorrhoids, vomiting or weight changes Genitourinary Genitourinary: Denies dysuria, flank pain, genital lesions, genital pain, urinary frequency or urinary urgency Musculoskeletal Musculoskeletal: Denies back pain, difficulty walking, joint pain, limited range of motion, muscle cramps or numbness Integumentary Integumentary: Denies lesions or unusual bruising Neurologic Neurologic: Denies abnormal movements, abnormal speech, dizziness, numbness, seizure-like activity or syncope Psychiatric Psychiatric: Denies anxiety, behavioral changes, change in appetite, change in libido, cognitive impairment, confusion, depression, difficulty concentrating, hallucinations or suicidal thoughts Endocrine Endocrinology: Denies excessive sweating, polydipsia or polyuria Hematologic/Lymphatic Hematologic/Lymphatic: Denies easy bleeding, easy bruising or lymphadenopathy Allergic/Immunologic Allergic/Immunologic: Denies itchy eyes, lip swelling, seasonal rhinorrhea, rhinitis, throat swelling, tongue swelling, eczemia, wheezing or asthma Vital Signs Vital Signs Vital Signs: 01/27/23 07:16 01/27/23 07:17 01/27/23 07:17 Temperature Temperature Source Temporal Pulse Rate 122 H Blood Pressure 132/84 H BP Systolic 132 BP Diastolic 84 Pulse Ox 01/27/23 07:16 01/27/23 07:19 01/27/23 07:19 Temperature 97.4 F L Temperature Source Pulse Rate 122 H Blood Pressure BP Systolic BP Diastolic Pulse Ox 98 Weight Weight: 146 lb Body Mass Index (BMI) 26.6 Physical Exam Const alert, oriented x3, no apparent distress and healthy appearing General Appearance: cooperative; Negative for anxious HEENT normocephalic Face and Sinus: normal facial exam Eyes EOMs intact bilaterally and no scleral icterus General Eye: normal appearance of both eyes Neck full ROM and supple Lymph Lymphatic: no lymphadenopathy noted Chest Chest: abnormal inspection of the chest Resp normal respiratory effort Effort and Inspection: able to speak in complete sentences Cardio regular rate GI soft to palpation and non-tender Inspection: gravid Palpation: soft; Negative for tender external exam normal Amniotic Fluid: ROM+plus Back/Spine no CVA tenderness Extremity normal to inspection, full ROM and no clubbing, cyanosis or edema General Extremity: Negative for calf tenderness or edema Skin Lesions: no lesions Rashes: no rashes Psych mental status grossly normal Labs Labs Labs: Blood Type O POSITIVE Antibody Screen NEGATIVE Hct 41.8 % (37-47) Hgb 13.4 g/dL (12.0-15.0) Pap Smear Negative Obstetrics Ultrasound Syphilis Total Ab Non-reactive VZV IgG Antibody 886 index (Immune >165) Rubella IgG Antibody Reactive (Nonreactive) Hep Bs Antigen Non-Reactive (Nonreactive) Hepatitis C Antibody Non-Reactive (Nonreactive) Chlamydia DNA (NOE) Negative (Negative) N.gonorrhoeae DNA (NOE) Negative (Negative) HIV 1&2 Antibody Non-Reactive (Nonreactive) Glucose 1 Hr 50 gm 86 mg/dL (70-140) Gest Glucose Tolerance MG/DL Rhogam given: No Assessment & Plan (1) Labile blood pressure: COMMENT: close monitoring to rule out pre-e. all BPs WNL at home, nl 01/21 in office, will get pree labs 01/25, any consistently elevated bps or proteinuria consider 37 week delivery growth scan at 36 weeks- nl. (2) History of gestational diabetes: COMMENT: Passed 1hr GTT early in and 28 wk 3 hr: normal (3) : COMMENT: Declined NIPT/carrier/afp testing. Anatomy US NL. gbs neg (4) Supervision of normal : QUALIFIERS: Normal : other normal Trimester: second trimester Qualified Code(s): Z34.82 - Encounter for supervision of other normal , second trimester COMMENT: PRR ELTON 02/17/23 Boy PC Ann Marie : Julian PLAN: Plan baker catheter placed without difficulty. plan to start pitocin and arom when appropriate. 01/27/23 0826 <Electronically signed by Aundrea Byrd DO> Cosigner Signature (if applicable): CC: Dr. Aundrea Byrd, ; No Primary Care Physician~ Signed [facility] Work Phone: 1(455) 896-407903-08-2022 NotePap Smear Specimen AdequacyMarch 2021 9:45amCommentSatisfactory for evaluation. Endocervical and/or squamous metaplasticcells (endocervical component)are present.[facility] A#[id number] [facility] Work Phone: Comment on above:Satisfactory for evaluation. Endocervical and/or squamous metaplasticcells (endocervical component)are present.04-15-2021 NotePap Smear Specimen AdequacyMarch 2021 9:45amComment Satisfactory for evaluation. Endocervical and/or squamous metaplasticcells (endocervical component)are present.[facility] A#[id number] Health [facility] Work Phone: Comment on above:Satisfactory for evaluation. Endocervical and/or squamous metaplasticcells (endocervical component)are present.04-15-2021 NotePap Smear Specimen AdequacyMarch 2021 9:45amComment Satisfactory for evaluation. Endocervical and/or squamous metaplasticcells (endocervical component)are present.[facility] A#[id number] Health – [facility] Work Phone: Comvxrt on above:Satisfactory for evaluation. Endocervical and/or squamous metaplasticcells (endocervical component)are present.04-15-2021 NotePap Smear Specimen AdequacyMarch 2021 9:45amComment Satisfactory for evaluation. Endocervical and/or squamous metaplasticcells (endocervical component)are present.[facility] A#[id number] Work Phone: Comment on above:Satisfactory for evaluation. Endocervical and/or squamous metaplasticcells (endocervical component)are present.Evaluation noteNo assessment information availableWSelect Medical Specialty [facility] Work Phone: Evaluation note* Diagnosis Onset Date Resolution Status Abnormal vaginal bleeding ac juan francisco Orthostatic syncope acute Spontaneous miscarriage acut e [facility] Work Phone: Evaluation note* Diagnosis Onset Date Resolution Status History of gestational diabetes acute acute Supervision of normal acute acute Supervision of normal acute History of gestational diabetes acute acute Supervision of normal acute [facility] Work Phone: Evaluation note* Diagnosis Onset Date Resolution Status History of gestational diabetes acute acute Supervision of normal acute acute Supervision of normal acute History of gestational diabetes acute acute Supervision of normal acute History of gestational diabetes acute acute Supervision of normal acute History of gestational diabetes acute acute Supervision of normal acute History of gestational diabetes acute acute Supervision of normal acute [facility] Work Phone: evaluation note* Diagnosis Onset Date Resolution Status History of gestational diabetes acute acute Supervision of normal acute acute Supervision of normal acute History of gestational diabetes acute acute Supervision of normal acute History of gestational diabetes acute acute Supervision of normal acute History of gestational diabetes acute acute Supervision of normal acute History of gestational diabetes acute acute Supervision of normal acute History of gestational diabetes acute Labile blood pressure acute acute Supervision of normal acute [facility] Work Phone: Evaluation note* Diagnosis Onset Date Resolution Status History of gestational diabetes resolved resolved Supervision of normal resolved resolved Supervision of normal resolved History of gestational diabetes resolved resolved Supervision of normal resolved History of gestational diabetes resolved resolved Supervision of normal resolved History of gestational diabetes resolved resolved Supervision of normal resolved History of gestational diabetes resolved resolved Supervision of normal resolved History of gestational diabetes resolved Labile blood pressure resolv ed resolved Supervision of normal resolved History of gestational diabetes resolved Labile blood pressure resolv ed resolved Supervision of normal resolved History of gestational diabetes resolved Labile blood pressure resolv ed resolved Supervision of normal resolved History of gestational diabetes resolved Labile blood pressure resolv ed resolved Supervision of normal resolved Status post normal vaginal delivery acute History of gestational diabetes resolved Labile blood pressure resolv ed resolved Supervision of normal resolved [facility] Work Phone: evaluation note* Diagnosis Onset Date Resolution Status History of gestational diabetes resolved resolved Supervision of normal resolved resolved Supervision of normal resolved History of gestational diabetes resolved resolved Supervision of normal resolved History of gestational diabetes resolved resolved Supervision of normal resolved History of gestational diabetes resolved resolved Supervision of normal resolved History of gestational diabetes resolved resolved Supervision of normal resolved History of gestational diabetes resolved Labile blood pressure resolv ed resolved Supervision of normal resolved History of gestational diabetes resolved Labile blood pressure resolv ed resolved Supervision of normal resolved History of gestational diabetes resolved Labile blood pressure resolv ed resolved Supervision of normal resolved History of gestational diabetes resolved Labile blood pressure resolv ed resolved Supervision of normal resolved Status post normal vaginal delivery acute History of gestational diabetes resolved Labile blood pressure resolv ed resolved Supervision of normal resolved Chronic hypertension chronic [facility] Work Phone: Evaluation note* Diagnosis Onset Date Resolution Status History of gestational diabetes acute acute Supervision of normal acute acute Supervision of normal acute History of gestational diabetes acute acute Supervision of normal acute History of gestational diabetes acute acute Supervision of normal acute History of gestational diabetes acute acute Supervision of normal acute History of gestational diabetes acute acute Supervision of normal acute History of gestational diabetes acute Labile blood pressure acute acute Supervision of normal acute History of gestational diabetes acute Labile blood pressure acute acute Supervision of normal acute History of gestational diabetes acute Labile blood pressure acute acute Supervision of normal acute [facility] Work Phone: Evaluation note* Diagnosis Acute cystitis with hematuria- Primary Acute cystitis documented in this encounter [facility] note* Diagnosis Acute cystitis without hematuria- Primary Acute cystitis documented in this encounter [facility] note* Diagnosis Treatment not available- Primary Procedure not carried out for other reasons documented in this encounter [facility] note* Diagnosis Onset Date Resolution Status Admit Date Recurrent loss acute October 06, 2024 10:08am [facility] Work Phone: History and physical note Author Elena Parks [facility] January 29, 2023 7:57am Note Date/Time January 29, 2023 7:57am [facility] Medical Records Department [address] [place] [id number] OB Triage Physician Note 01/29/23 0749 MR#: [id number] Acct: [id number] Name: ANANYA MG Rep # :[id number] : 1990 32 From: Elena Parks CNM PCP: Care Physician,No Primary Status :REG CLI Y [id number]PI - General General Date of Service: 01/29/23 HPI Narrative ANANYA MG, is a 32 F who presents to unit 1 day for elevated bp at home. She reports headache, heart palpitations and general feeling of fatigue and not feeling well. [facility] Medical History (Updated 01/29/23 @ 07:39 by Elena Parks CNM) Chronic hypertension Gestational diabetes Infertility Orthostatic syncope Home Medications docosahexaenoic acid 200 mg capsule ( DHA) mg PO 10/23/22 [History Last Taken Unknown] naproxen 500 mg tablet 500 mg PO BID PRN pain #30 tabs 01/27/23 [Rx Last Taken Unknown] nifedipine 30 mg tablet,extended release 24 hr (Procardia XL) 30 mg PO DAILY hypertension #30 tabs 01/29/23 [Rx Last Taken Unknown] Allergy/AdvReac Type Severity Reaction Status Date / Time No Known Allergies Allergy Verified 01/29/23 00:52 Family History Sister Diabetes type 1 Grandfather Diabetes type 2 Grandmother Multiple myeloma Surgical History H/O dilation and curettage Social History Smoking Status: Never smoker alcohol intake: never substance use type: does not use caffeine: Yes what type of physical activity do you participate in: walking frequency: 3-4 times per week seatbelt use: always do you feel safe at home: Yes additional social history: - Julian History 4 Elective abortions Hx Para 2 Spontaneous abortions 2 Hx # Term Pregnancies Ectopic pregnancies Hx # Pregnancies Multiple births # of living children 2 Past Pregnancies Del. Date Name GA/Weeks Outcome Route Bth Weight Infant Gen Labor Lgth Anesthesia Del Locatn Provider FOB 04/20/20 Ann Marie 39 live - full term 6lbs 6oz Female Dr. Roz Jordan 01/27/23 Azeb 37 live - full term Male epidu ral [facility] Julian Delivery Date: 04/20/20 Last Updated by: Vane Wallis Gestational diabetes Delivery Date: 01/27/23 Last Updated by: Elizabeth Castro, RN see problem list for complications, and gestational hypertension. ROS Constitutional Constitutional: Reports systems reviewed and no addt'l complaints, except as documented, fatigue and headache(s) Cardiovascular Cardiovascular: Reports systems reviewed and no addt'l complaints, except as documented, fatigue, hypertension, lightheadedness and palpitations; Denies chest pain or dyspnea Respiratory/Chest Respiratory/Chest: Reports systems reviewed and no addt'l complaints, except as documented; Denies dyspnea or shortness of breath at rest Gastrointestinal Gastrointestinal: Reports systems reviewed and no addt'l complaints, except as documented Genitourinary Genitourinary: Reports systems reviewed and no addt'l complaints, except as documented Musculoskeletal Musculoskeletal: Reports systems reviewed and no addt'l complaints, except as documented Integumentary Integumentary: Reports systems reviewed and no addt'l complaints, except as documented Neurologic Neurologic: Reports systems reviewed and no addt'l complaints, except as documented Psychiatric Psychiatric: Reports systems reviewed and no addt'l complaints, except as documented Endocrine Endocrinology: Reports systems reviewed and no addt'l complaints, except as documented Hematologic/Lymphatic Hematologic/Lymphatic: Reports systems reviewed and no addt'l complaints, exceptas documented Physical Exam Const alert and oriented x3 Resp normal respiratory effort, no retractions, no use of accessory muscles and clearto auscultation bilaterally Cardio regular rate GI normal to inspection, nondistended, normoactive bowel sounds, soft to palpation and non-tender Extremity normal to inspection, full ROM, no calf tenderness and no pedal edema Skin no rashes or lesions noted and no wounds Neuro moves all extremities Assessment & Plan (1) Chronic hypertension: COMMENT: labile BP throughout PLAN: normal pre E labs start procardia 30xl daily monitor bp at home daily. call with bp of 150/90 or greater follow up in office in 2 weeks with bps Discussed assessment and plan of care with Dr Byrd and agrees with above plan Charges/Coding Visit Charges Office Visits / Consults: [id number] OV L3 Est 01/29/23 075 <Electronically signed by Elena mullen CNM> Date _ Elean Parks CNM Cosigner Signature (if applicable): Date CC: DANDRE Parks; No Primary Care Physician ~ Signed [facility] Work Phone: Progress note Author Elena Parks [facility] Note Date/Time October 06, 2024 10 :48am [facility] [address], [address] [place] [address] OFFICE VISIT Date of Service: 10/06/24 MR#: [id number] Acct: [id number] Name: ANANYA MG p #: [id number] : 1990 Provider: DANDRE Parks Age/Sex: 33/F [place] [facility] [place]: Signed Intake Vital Signs 03/27/24 09:53 10/06/24 10:11 Height 5 ft 2 in 5 ft 2 in Weight: 126 lb 4 oz BMI 23.1 BP 151/81 H Intake Visit Reasons: Heartbeat check Chief Complaint: heart beat Check Sea Captain Required: No Is patient in pain?: No Allergies No Known Allergies Allergy (Verified 10/06/24 10:09) Medications ?Medication ?Instructions ?Recorded ?Confirmed ?Type sertraline 25 mg tablet (Zoloft) 25 mg PO DAILY #30 ta bs 02/25/23 10/06/24 Rx progesterone micronized 100 mg 200 mg (2 x 100 mg) vag inal QHS 09/05/24 10/06/24 Rx capsule (Prometrium) #60 caps PNV 153-FA 400 mcg-om3 35 mg-dha tab PO 09/22/2410/06 History 25 mg-epa 5 mg-fish oil chew tablet Post menopausal: No Patient : Yes PFSH Medical History History of gestational diabetes Infertility Chronic hypertension Orthostatic syncope Surgical History [place] teeth extracted H/O dilation and curettage Family History Sister Diabetes type 1 Grandfather Diabetes Paternal type 2 Grandmother Multiple myeloma Maternal Social History adopted: No household members: spouse and children housing: house number of children: 2 current occupational status: 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[employer] pets and animals: Yes (Avoid litterbox) pets and animals: cat(s) history of recent travel: Yes ([place] August) out of state: Yes out of country: No sexually active: Yes Smoking Status: Never smoker alcohol intake: current alcohol intake frequency: holidays/special occasions only details: Not while substance use type: does not use well-balanced diet: daily or most days caffeine: No eating out: 1-3 times/week during the past year weight has: remained stable what type of physical activity do you participate in: walking frequency: 3-4 times per week duration: 15-30 minutes/day bill/presybeterian: [employer] seatbelt use: always do you feel safe at home: Yes additional social history: - Julian- 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 She was having significant nausea previously and woke up this morningwithout it. She has a history of SAB and reports this is how she felt previously. positive test on 09/07. US showed gestational sac at 7.4 weeks. YS present but no pole noted. plan for HCG x 2, TSH, APL panel. Female Reproductive History Last Menstrual Period: 08/05/24 Cycle Length: 21-35 History 5 Elective abortions Hx Para 2 Spontaneous abortions 2 Hx # Term Pregnancies Ectopic pregnancies Hx # Pregnancies Multiple births # of living children 2 Past Pregnancies Del. Date Name GA/Weeks Outcome Route Bth Weight Infant Gen Labor Lgth Anesthesia Del Locatn Provider FOB 04/20/20 Ann Marie 39 live - full term 6lbs 6oz Female epidural Dr. Roz Jordan 01/27/23 Azeb 37 live - full term 6lbs 2oz Male ep idural [facility] J[facility] Julian Delivery Date: 04/20/20 Last Updated by: Vane Wallis Gestational diabetes Delivery Date: 01/27/23 Last Updated by: Elizabeth Castro, RN see problem list for complications, and gestational hypertension. ROS Const Constitutional: Reports system reviewed and no additional complaints, except as documented Cardio Card: Reports system reviewed and no additional complaints, except as documented Resp Resp: Reports system reviewed and no additional complaints, except as documented GI GI: Reports system reviewed and no additional complaints, except as documented : Reports system reviewed and no additional complaints, except as documented; Denies difficulty voiding, dysuria or urinary frequency Skin Skin/Breast: Reports system reviewed and no additional complaints, except as documented Neuro Neuro: Reports system reviewed and no additional complaints, except as documented Psych Psych: Reports system reviewed and no additional complaints, except as documented; Denies anhedonia, anxiety or depression Exam Const General: cooperative, healthy appearing, comfortable and no acute distress Orientation: alert, awake and oriented x3 Resp Effort & Inspection: normal respiratory effort, able to speak in complete sentences and symmetric chest movement GI Inspection: normal to inspection Palpation: soft Rectal Exam: visual inspection normal External Female Exam: normal external appearance and normal appearance of the urethra Urethra: normal appearance of the urethra Speculum Exam - Vagina: normal appearance of the vagina and normal vaginal discharge Speculum Exam - Cervix: normal appearance of the cervix Skin General: no rashes or lesions noted Neuro General: patient alert, patient awake and patient oriented x3 Cognition: normal cognition Speech: speech normal Gait: normal gait Extrem General: normal to inspection and full ROM Psych Appearance: grossly normal and well kempt Mental Status: mental status grossly normal Affect: normal affect Speech and Movement: speech and movement normal Attitude: cooperative Thought Process: normal Thought Content: normal Judgment: judgment good Coding Level of Care Code Off vis,est,level 4 Diagnoses Recurrent loss N96 Assessment and Plan Assessment and Plan (1) Recurrent loss: Status: Acute Plan: HCG x 2 TSH CBC A1C APL panel. RTO next week for follow up. management pending labs Orders: Orders hCG Titer Quant., Serum Today N96 - Recurrent loss Hemoglobin A1c Today N96 - Recurrent loss Thyroid Stim Hormone (TSH) Today N96 - Recurrent loss Beta-2 Glycoprot IgG, A, M Today N96 - Recurrent loss Lupus Anticoagulant Comp Today N96 - Recurrent loss Anticardiolipin IgG, IgM Today N96 - Recurrent loss hCG Titer Quant., Serum 2 Days N96 - Recurrent loss 10/06/24 1048 <Electronically signed by lEena mullen CNM> Date _ Elena Parks CNM Cosigner Signature: Date (if applicable) CC: ~ [facility] Work Phone: Reason for referral (narrative)No reason for referral [facility] Work Phone: Summary Purpose Family History No Family History Records Found Relationship Condition Age at Onset Recorded Date/T ezra sister Diabetes mellitus Unknown grandfather Diabetes mellitus Unknown grandmother Multiple myeloma Unknown Advance Directives No Advanced Directives Records Found Advance Directive Response Recorded Date/ Time Living Will No April 20, 2020 7:57am Power of Relay Telegrapher No April 20 7:57am Advance Directive Response Recorded Date/ Time Living Will No May 20, 2021 7:51am Power of Relay Telegrapher No May 20 7:51am Advance Directive Response Recorded Date/ Time Living Will No May 20, 2021 6:51am Power of Relay Telegrapher No May 20 6:51am Advance Directive Response Recorded Date/ Time Living Will No January 27 7:25am Power of Relay Telegrapher No January 27, 2023 7:25am Chief Complaint and Reason for Visit Chief Complaint vaginal bleeding Reason for Visit Abnormal vaginal ble eding Orthostatic syncope Spontaneous miscarriage Chief Complaint SPONTANEOUS Reason for Visit Abnormal vaginal ble eding Orthostatic syncope Spontaneous miscarriage Chief Complaint 23 WK ob 27 WK OB 29 WK OB EORDER Reason for Visit History of gestation al diabetes Supervision of normal Supervision of normal History of gestational diabetes Supervision of normal Chief Complaint 23 WK ob 27 WK OB 29 WK OB EORDER BP CHECK 31 WK OB 34 WK OB Reason for Visit History of gestation al diabetes Supervision of normal Supervision of normal History of gestational diabetes Supervision of normal History of gestational diabetes Supervision of normal History of gestational diabetes Supervision of normal History of gestational diabetes Supervision of normal Chief Complaint 23 WK ob 27 WK OB 29 WK OB EORDER BP CHECK 31 WK OB 34 WK OB recheck BP EORDER Reason for Visit History of gestation al diabetes Supervision of normal Supervision of normal History of gestational diabetes Supervision of normal History of gestational diabetes Supervision of normal History of gestational diabetes Supervision of normal History of gestational diabetes Supervision of normal History of gestational diabetes Labile blood pressure Supervision of normal Chief Complaint 23 WK ob 27 WK OB 29 WK OB EORDER BP CHECK 31 WK OB 34 WK OB recheck BP EORDER 36 WK OB SCREEN CIRC OB/NST 36 weeks NST/37 WK OB E-ORDER VAGINAL DELIVERY INDUCTION VAGINAL DELIVERY Reason for Visit History of gestation al diabetes Supervision of normal Supervision of normal History of gestational diabetes Supervision of normal History of gestational diabetes Supervision of normal History of gestational diabetes Supervision of normal History of gestational diabetes Supervision of normal History of gestational diabetes Labile blood pressure Supervision of normal History of gestational diabetes Labile blood pressure Supervision of normal History of gestational diabetes Labile blood pressure Supervision of normal History of gestational diabetes Labile blood pressure Supervision of normal Status post normal vaginal delivery History of gestational diabetes Labile blood pressure Supervision of normal Chief Complaint 23 WK ob 27 WK OB 29 WK OB EORDER BP CHECK 31 WK OB 34 WK OB recheck BP EORDER 36 WK OB SCREEN CIRC OB/NST 36 weeks NST/37 WK OB E-ORDER VAGINAL DELIVERY INDUCTION VAGINAL DELIVERY POST PARTAM, ELEVATED BPS POST PARTAM, ELEVATED BPS Reason for Visit History of gestation al diabetes Supervision of normal Supervision of normal History of gestational diabetes Supervision of normal History of gestational diabetes Supervision of normal History of gestational diabetes Supervision of normal History of gestational diabetes Supervision of normal History of gestational diabetes Labile blood pressure Supervision of normal History of gestational diabetes Labile blood pressure Supervision of normal History of gestational diabetes Labile blood pressure Supervision of normal History of gestational diabetes Labile blood pressure Supervision of normal Status post normal vaginal delivery History of gestational diabetes Labile blood pressure Supervision of normal Chronic hypertension Chief Complaint 23 WK ob 27 WK OB 29 WK OB EORDER BP CHECK 31 WK OB 34 WK OB recheck BP EORDER 36 WK OB SCREEN CIRC OB/NST 36 weeks Reason for Visit History of gestation al diabetes Supervision of normal Supervision of normal History of gestational diabetes Supervision of normal History of gestational diabetes Supervision of normal History of gestational diabetes Supervision of normal History of gestational diabetes Supervision of normal History of gestational diabetes Labile blood pressure Supervision of normal History of gestational diabetes Labile blood pressure Supervision of normal History of gestational diabetes Labile blood pressure Supervision of normal Chief Complaint Admit Date Heartbeat check October 06, 2024 10 :08am Reason for Visit Admit Date Recurrent loss October 06 10:08am Additional Source Comments INFORMATION SOURCE (unrecogn ized section and content) DATE CREATED AUTHOR 02/18/2018 [facility] Davina Phillips DATE CREATED AUTHOR AUTHOR'S ORGANIZ ATION 09/20/2023 [facility] ([place]) DATE CREATED AUTHOR AUTHOR'S ORGANIZ ATION 08/25/[address] [facility] DATE CREATED AUTHOR AUTHOR[facility]S ORGANIZ ATION [facility] Goals (unrecognized section and content) Goals may be documented in a n alternate sectionGoals may be documented in an alternate sectionGoals may be documented in an alternate sectionGoals may be documented in an alternate sectionGoals may be documented in an alternate sectionGoals may be documented in an alternate sectionGoals may be documented in an alternate sectionGoals may be documented in an alternate sectionGoals may be documented in an alternate sectionGoals may be documented in an alternate sectionGoals may be documented in an alternate sectionGoals may be documented in an alternate sectionGoals may be documented in an alternate sectionGoals may be documented in an alternate section Care Teams (unrecognized sec tion and content) Team Status: Active Member Role Status Dates Dr. Kam Lees MD Primary Care Provider Active Team Status: Inactive Member Role Status Dates Dr. Kam Lees MD Primary Care Provider, Attending Provider Active Team Status: Inactive Member Role Status Dates Dr. Kam Lees MD Primary Care Provider Active Dr. Roz Lees DO Attending Provider Active Team Status: Active Member Role Status Dates No Primary Care Physician Primary Care Provider Active Team Status: Inactive Member Role Status Dates Dr. Cintia Donovan MD Attending Provider Active No Primary Care Physician Primary Care Provider, Refer ring Provider Active Team Status: Inactive Member Role Status Dates No Primary Care Physician Primary Care Provider, Refer ring Provider Active Dorothea Clinton RUG RENOVATOR, RUG RENOVATOR-C Attending Provider Active Team Status: Inactive Member Role Status Dates No Primary Care Physician Primary Care Provider, Refer ring Provider Active Dr. Aundrea Byrd DO Attending Provider Activ e Team Status: Inactive Member Role Status Dates No Primary Care Physician Primary Care Provider Active Dr. Cintia Donovan MD Attending Provider, Referr ing Provider Active Team Status: Inactive Member Role Status Dates No Primary Care Physician Primary Care Provider Active Dr. Aundrea Byrd DO Attending Provider, Refe rring Provider Active Team Status: Inactive Member Role Status Dates No Primary Care Physician Primary Care Provider, Refer ring Provider Active Dr. Cintia Donovan MD Attending Provider Active Team Status: Active Member Role Status Dates No Primary Care Physician Primary Care Provider Active Dr. Aundrea Byrd DO Admit Prov ider, Attending Provider, Other Provider Active Team Status: Active Member Role Status Dates No Primary Care Physician Primary Care Provider Active Dr. Aundrea Byrd DO Admit Provider, Other Pr ovider Active Elena Parks CNM Attending Provider Active Team Status: Inactive Member Role Status Dates No Primary Care Physician Primary Care Provider Active Dr. Aundrea Byrd DO Attending Provider Activ e Team Status: Active Member Role Status Dates No Primary Care Physician Primary Care Provider Active Dr. Cintia Donovan MD Attending Provider, Referr ing Provider Active Team Status: Inactive Member Role Status Dates No Primary Care Physician Primary Care Provider Active Dr. Aundrea Byrd DO Admit Provider, Attendin g Provider Active Team Status: Active Member Role Status Dates No Primary Care Physician Primary Care Provider Active Elena Parks CNM Attending Provider, Referring Provider, Other Provider Active Team Status: Inactive Member Role Status Dates No Primary Care Physician Primary Care Provider Active Elena Parks CNM Attending Provider, Referring Pro vider Active Team Status: Active Member Role Status Dates No Primary Care Physician Primary Care Provider Active Dr. Aundrea Byrd DO Attending Provider, Refe rring Provider Active Team Status: Active Member Role/Relationship Status Dates No Primary Care Physician Primary Care Provider Active Team Status: Inactive Member Role/Relationship Status Dates No Primary Care Physician Primary Care Provider Active Start: October 06, 2024 End: October 06, 2024 No Primary Care Physician Referring Provider Active Start: October 06, 2024 End: October 06, 2024 Elena Parks CNM Attending Provider Active S tart: October 06, 2024 End: October 06, 2024 Team Status: Active Member Role/Relationship Status Dates No Primary Care Physician Primary Care Provider Active Start: October 06, 2024 Elena Parks CNM Attending Provider Active S tart: October 06, 2024 Elena Parks CNM Referring Provider Active S tart: [place] 29th, 2025 Source Comments (unrecognize d section and content) In the event this informatio n is protected by the Federal Confidentiality of Alcohol and Drug Abuse Patient Records regulations: The Federal rules restrict any use of the information to criminally investigate or prosecute any alcohol or drug abuse patient.[facility] Center[facility] the event this information is protected by the Federal Confidentiality of Alcohol and Drug Abuse Patient Records regulations: The Federal rules restrict any use of the information to criminally investigate or prosecute any alcohol or drug abuse patient.[facility] CenterIn the event this information is protected by the Federal Confidentiality of Alcohol and Drug Abuse Patient Records regulations: The Federal rules restrict any use of the information to criminally investigate or prosecute any alcohol or drug abuse patient.[facility] Reason for Visit (unrecogniz ed section and content) Reason Comments UTI Reason Comments med question FOR RECORDS PERTAINING TO PATIENTS WHO ARE OR HAVE BEEN ENROLLED IN A CHEMICAL DEPENDENCY/SUBSTANCEABUSE PROGRAM, SOME INFORMATION MAY BE OMITTED. This clinical summary was aggregated from multiple sources. Caution should be exercised in using it in the provision of clinical care. This summary normalizes information from multiple sources, and as a consequence, information in this document may materially change the coding, format and clinical context of patient data. In addition, data may be omitted in some cases. CLINICAL DECISIONS SHOULD BE BASED ON THE PRIMARY CLINICAL RECORDS. [facility] [employer] [facility]. provides no warranty or guarantee of the accuracy or completeness of information in this document.
[2024-10-08 09:25] LABS: hCG Titer Quant., Serum 66462 mIU/mL (<9 non-preg)
== END | disposition home or self-care (01) ==
LOC: LAB 08:14
PROVIDERS: PCP Nurse Practitioner Adult Health; Referring Provider Advanced Practice Midwife; Visit Provider Advanced Practice Midwife
DX: N96 Recurrent pregnancy loss (principal)
CPT/HCPCS: 36415; 84702

== ENCOUNTER 2024-10-13 10:13 | Day surgery (SDC) | payer OTHER, SELFPAY ==
[2024-10-13] VITALS (8 sets, daily range): BP systolic 98–119; BP diastolic 57–74; PULSE 57–87; RESP 16; TEMP 36.3–37.2; O2SAT 97–100
[2024-10-13] MEDS: Lactated Ringers 1,000 ML 15 ML IV (10:55)
[2024-10-13 11:08] LABS: Hematocrit 38.4 % (37-47); Hemoglobin 13.2 g/dL (12.0-15.0); Mean Corp Hgb Conc 34.4 g/dL (32-36); Mean Corpuscular Volume 87.7 fL (81-99); Mean Platelet Vol. 9.9 fl (6.2-12.0); Platelet Count 219 K/mm3 (150-450); RBC Distribution Width CV 12.1 % (11.6-14.6); RBC Distribution Width SD 39.3 fl (35.1-43.9); Red Blood Count 4.38 M/mm3 (4.2-5.4); White Blood Count 7.6 K/mm3 (4.4-11.0)
--- NOTE | 2024-10-13 11:19 | PCM.PRE.AN2 ---
ASA Classification* ASA Classification ASA Classification: 2 Assessment & Plan Anesthesia* Anesthesia Assessment Anesthesia Assessment: Discussed sedation and/or anesthesia options, risks, benefits, and alternatives with patient/parents/legal guardian/POA. Questions invited. The patient/parents/legal guardian/POA seems to understand and agrees to proceed with anesthesia plan. Reviewed the physical assessment, medical history, allergy history and patient home medications list prior to surgery/procedure/anesthetic and documented any changes. Performed airway and anesthesia risk assessments. Anesthesia Type Anesthesia Type: MAC History Source History Obtained from:: Patient and Chart Anesthesia Focused Assessment* Temperature: 99.0 F Pulse Rate: 87 Blood Pressure: 119/74 Respiratory Rate: 16 Pulse Ox: 100 Oxygen Delivery Method: Room Air Airway Assessment Mouth opens: >3 cm Mallampati Score: IV Teeth Condition: Caps/Crowns (Patient has a left upper crown on the molar. It is tight.) Neck Range of motion (ROM): Full ROM Labs Anesthesia Preop lab: CBC WBC 7.6 K/mm3 (4.4-11.0) 10/13/24 10:40 10/13/24 RBC 4.38 M/mm3 (4.2-5.4) 10/13/24 10:40 10/13/24 Hgb 13.2 g/dL (12.0-15.0) 10/13/24 10:40 10/13/24 Hct 38.4 % (37-47) 10/13/24 10:40 10/13/24 Plt Count 219 K/mm3 (150-450) 10/13/24 10:40 10/13/24 CHEMISTRY Potassium 3.8 mmol/L (3.5-5.1) 01/25/23 16:15 01/25/23 Sodium 134 mmol/L (136-145) L 01/25/23 16:15 01/25/23 BUN 7 mg/dL (7-18) 01/25/23 16:15 01/25/23 Creatinine 0.64 mg/dL (0.55-1.02) 01/29/23 00:40 01/29/23 Glucose 80 mg/dL (74-106) 01/25/23 16:15 01/25/23 POC Glucose 70 mg/dL (70-110) 04/21/20 05:56 04/21/20 TSH 2.520 uIU/mL (0.300-4.200) 10/06/24 10:41 10/06/24 COAG PT 14.1 SECONDS (11.7-14.9) 05/19/21 00:00 05/19/21 HCG, Quant 51935 mIU/mL (<9 non-preg) H 10/08/24 08:17 10/08/24 Pre-Assessment Diagnosis/Proposed Procedure Planned Operative Procedure(s): suction d/c Anesthesia History 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 When Was Last Pacemaker Check QUESTION #4 FULL TEXT: You/Your Family Experience fever (hyperthermia) with Anesthesia Last Oral Intake Last Oral intake: Last Oral Intake NPO since 09:00 10/13/24 10:28 Meds taken in AM with sips of water? Meds patient instructed to take am of surgery Any additional information?: Yes NPO since: 09:00 (Patient had water at 9 AM.) Meds taken in AM with sips of water?: No PONV PONV - food beverage supervisor: PONV - food beverage supervisor Female Yes 10/13/24 10:51 HX of Motion Sickness No 10/13/24 10:51 HX of N/V After Surgery No 10/13/24 10:51 Non-Smoker Yes 10/13/24 10:51 Duration of Surgery greater No 10/13/24 10:51 than 60 minutes Number of Risk Factors 2 10/13/24 10:51 PONV Score Moderate Risk 10/13/24 10:51 Height & Weight Height & Weight: Anesthesia: Height & Weight Height 5 ft 2 in 10/12/24 14:26 Weight: 56 kg 10/13/24 10:28 Respiratory Assessment Respiratory Assessment - food beverage supervisor: Respiratory Tract Infection Hx - food beverage supervisor Hx Respiratory Tract Infection No 10/13/24 10:51 STOP Sleep Apnea STOP Sleep Apnea - food beverage supervisor: STOP Sleep Apnea - food beverage supervisor Hx Hypertension No 10/13/24 10:51 Hx Sleep Apnea No 10/13/24 10:51 CPAP BIPAP Do you snore loudly (louder No 10/13/24 10:51 than talking or can be heard Do you often feel tired/ No 10/13/24 10:51 fatigued/ sleepy during daytime? Has anyone observed you stop No 10/13/24 10:51 breathing during sleep? STOP Results Negative 10/13/24 10:51 QUESTION #5 FULL TEXT : Do you snore loudly (louder than talking or can be heard through closed doors)? 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 Specify any problems Hx of Preganancy in last 3 Yes 10/13/24 10:51 Months Nurse Filling Out Transfusion DPRIEST 10/13/24 10:51 & Questions: Date: 10/13/24 10/13/24 10:51 Time: 10:54 10/13/24 10:51 Patient unable to answer at this time (ie. confused, unrespo /Reproduction History /Reproductive History - food beverage supervisor: /Reproductive Hx- food beverage supervisor Hx Now No 10/13/24 10:51 Gestational Age (in weeks): EDC: Hx Hx Para Hx Section SAB No 10/13/24 10:51 Active Medications Active Medications: Current Medications Generic Name Dose Route Start Last Admin Trade Name Freq PRN Reason Stop Dose Admin Doxycycline Monohydrate 100 mg 10/13/24 08:15 10/13/24 10:56 Doxycycline 100 Mg Capsule PO 100 mg X1 JODEE Administration Lactated Ringer's 1,000 mls @ 15 mls/hr 10/13/24 10:30 10/13/24 10:55 IV 15 mls/hr .Q48H JODEE Administration PFSH Medical History History of gestational diabetes Infertility Chronic hypertension Orthostatic syncope Home Medications ?Medication ?Instructions ?Recorded ?Last Taken ?Type sertraline 25 mg tablet (Zoloft) 25 mg PO DAILY #30 tabs 02/25/23 Unknown Rx progesterone micronized 100 mg 200 mg (2 x 100 mg) vaginal QHS 09/05/24 Unknown Rx capsule (Prometrium) #60 caps PNV 153-FA 400 mcg-om3 35 mg-dha tab PO 09/22/24 Unknown History 25 mg-epa 5 mg-fish oil chew tablet Allergy/AdvReac Type Severity Reaction Status Date / Time No Known Allergies Allergy Verified 10/13/24 10:27 Family History Sister Diabetes type 1 Grandfather Diabetes Paternal type 2 Grandmother Multiple myeloma Maternal Surgical History [place] teeth extracted H/O dilation and curettage Social History adopted: No household members: spouse and children housing: house number of children: 2 current occupational status: 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[place] pets and animals: Yes (Avoid litterbox) pets and animals: cat(s) history of recent travel: Yes (August) out of state: Yes out of country: No sexually active: Yes Smoking Status: Never smoker alcohol intake: current alcohol intake frequency: holidays/special occasions only details: Not while substance use type: does not use well-balanced diet: daily or most days caffeine: No eating out: 1-3 times/week during the past year weight has: remained stable what type of physical activity do you participate in: walking frequency: 3-4 times per week duration: 15-30 minutes/day bill/taoism: Voodoo seatbelt use: always do you feel safe at home: Yes additional social history: - 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
--- NOTE | 2024-10-13 12:00 | POC_PTH ---
PATIENT: ANANYA [place]OSA [place] [facility] [id number] AGE/SX: 33/F ROOM: RE10/13/[address]: Dr. Cintia Donovan MD : 1990 BED: DIS: 10/13/2024 SPEC #: [id number] RECD: 10/13/24 13:38 STATUS: REYNALDO GRANDE #: [id number] LETICIA: 10/13/24 12:[address]: Cintia Donovan DEPT: SURGICAL PATHOLOGY RECD BY: Jose Garnica ENTERED: 10/13/24 14:37 SP TYPE: PROD CONC OTHR DR: EDGAR ESTEVEZ Tissues: A - Product of conception, NOS Procedures: Surgery Specimen Level IV HEADER OPERATION: Dilation and curettage, suction PRE-OP DIAGNOSIS: Missed TISSUE SUBMITTED: A- Products of conception MICROSCOPIC DIAGNOSIS A. Uterine contents, suction curettage: - Products of conception with immature chorionic villi, decidua, and hypersecretory endometrium. MICROSCOPIC DESCRIPTION Slides are reviewed. GROSS DESCRIPTION A. Received in formalin labeled with the patient's name and date of . Designated as products of conception is a 16.8 g, 7.1 x 6.2 x 1.0 cm aggregate of chavez-pink soft tissue fragments. parts are not present. Dehydrogenation Converter Operator sections are submitted in 3 cassettes. OK 10/13/2024 CPT:76309
--- NOTE | 2024-10-13 12:04 | HP.PCM.OB_ITS ---
HPI - General HPI Narrative ANANYA SOSA, is a 33 F who presents with early missed ab. quants have not risen appropriatley and she has a GS measuring 2 weeks behind that only has a yolk sac and particulate material and no viable IUP confirmed on two separate occasions 1 week apart. no vb crmaping at present. Maternal Data Information ELTON Calculator Estimated Delivery Date Method Current WG Current Estimate 05/12/25 LMP (Certain) 9w 6d PFSH PFSH Medical History History of gestational diabetes Infertility Chronic hypertension Orthostatic syncope Home Medications ?Medication ?Instructions ?Recorded ?Last Taken ?Type sertraline 25 mg tablet (Zoloft) 25 mg PO DAILY #30 ta bs 02/25/23 Unknown Rx progesterone micronized 100 mg 200 mg (2 x 100 mg) vag inal QHS 09/05/24 Unknown Rx capsule (Prometrium) #60 caps PNV 153-FA 400 mcg-om3 35 mg-dha tab PO 09/22/24 Unkno wn History 25 mg-epa 5 mg-fish oil chew tablet Allergy/AdvReac Type Severity Reaction Status Date / Time No Known Allergies Allergy Verified 10/13/24 10:27 Family History Sister Diabetes type 1 Grandfather Diabetes Paternal type 2 Grandmother Multiple myeloma Maternal Surgical History [place] teeth extracted H/O dilation and curettage Social History adopted: No household members: spouse and children housing: house number of children: 2 current occupational status: 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[place] pets and animals: Yes (Avoid litterbox) pets and animals: cat(s) history of recent travel: Yes ([place] August) out of state: Yes out of country: No sexually active: Yes Smoking Status: Never smoker alcohol intake: current alcohol intake frequency: holidays/special occasions only details: Not while substance use type: does not use well-balanced diet: daily or most days caffeine: No eating out: 1-3 times/week during the past year weight has: remained stable what type of physical activity do you participate in: walking frequency: 3-4 times per week duration: 15-30 minutes/day bill/jainism: Congregation seatbelt use: always do you feel safe at home: Yes 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 Date Name GA/Weeks Outcome Route Bth Weight Infant Gen Labor Lgth Anesthesia Del Locatn Provider FOB 04/20/20 Ann Marie 39 live - full term 6lbs 6oz Female epidural Dr. Roz Jordan 01/27/23 Azeb 37 live - full term 6lbs 2oz Male ep idural [facility] Julian Delivery Date: 04/20/20 Last Updated by: Vane Wallis Gestational diabetes Delivery Date: 01/27/23 Last Updated by: Elizabeth Castro, RN see problem list for complications, and gestational hypertension. ROS Constitutional Constitutional: Reports systems reviewed and no addt'l complaints, except as documented; Denies as per HPI, change in weight, fatigue, fever(s), malaise, weakness or other Eyes Eyes: Reports systems reviewed and no addt'l complaints, except as documented; Denies as per HPI, change in vision or other ENT HEENT: Reports systems reviewed and no addt'l complaints, except as documented Respiratory/Chest Respiratory/Chest: Reports systems reviewed and no addt'l complaints, except as documented Gastrointestinal Gastrointestinal: Reports systems reviewed and no addt'l complaints, except as documented and as per HPI Genitourinary Genitourinary: Reports as per HPI Musculoskeletal Musculoskeletal: Reports systems reviewed and no addt'l complaints, except as documented Neurologic Neurologic: Reports systems reviewed and no addt'l complaints, except as documented Psychiatric Psychiatric: Reports systems reviewed and no addt'l complaints, except as documented Endocrine Endocrinology: Reports systems reviewed and no addt'l complaints, except as documented Hematologic/Lymphatic Hematologic/Lymphatic: Reports systems reviewed and no addt'l complaints, except as documented Vital Signs Vital Signs Vital Signs: 10/13/24 10:28 10/13/24 10:28 10/13/24 11:24 Temperature 99.0 F 99.0 F Temperature Source Temporal Pulse Rate 87 87 Respiratory Rate 16 16 Respiratory Pattern Normal Blood Pressure 119/74 119/74 Blood Pressure Mean 89 Blood Pressure Source Monitor Blood Pressure Position Semi-Fowlers Blood Pressure Location Right Arm Pulse Ox 100 100 Oxygen Delivery Method Room Air Room Air Weight Weight: 123 lb 7.342 oz Physical Exam Const alert, oriented x3 and no apparent distress HEENT normocephalic Head and Scalp: atraumatic Eyes EOMs intact bilaterally and conjunctivae normal Neck full ROM, no lymphadenopathy, supple and thyroid normal General: trachea midline Lymph Lymphatic: no lymphadenopathy noted Resp normal respiratory effort, no retractions, no use of accessory muscles and clear to auscultation bilaterally Cardio regular rhythm GI normal to inspection, nondistended, normoactive bowel sounds, soft to palpation, non-distended and no masses Inspection: Negative for abdominal distention Back/Spine no CVA tenderness Extremity normal to inspection Skin no rashes or lesions noted Neuro moves all extremities and deep tendon reflexes 2+ bilaterally Psych mental status grossly normal Labs Labs Labs: Blood Type O POSITIVE Antibody Screen NEGATIVE Hct 38.4 % (37-47) Hgb 13.2 g/dL (12.0-15.0) Pap Smear Negative Obstetrics Ultrasound Syphilis Total Ab Non-reactive VZV IgG Antibody 886 index (Immune >165) Rubella IgG Antibody Reactive (Nonreactive) Hep Bs Antigen Non-Reactive (Nonreactive) Hepatitis C Antibody Non-Reactive (Nonreactive) Chlamydia DNA (NOE) Negative (Negative) N.gonorrhoeae DNA (NOE) Negative (Negative) HIV 1&2 Antibody Non-Reactive (Nonreactive) Glucose 1 Hr 50 gm 86 mg/dL (70-140) Gest Glucose Tolerance MG/DL Rhogam given: No Assessment & Plan (1) Missed : (2) Recurrent loss: PLAN: Plan After discussing the patient's diagnosis and treatment plan options, patient wishes to proceed with surgical management. I have discussed with the patient the risks, benefits, and alternatives of the procedure which include but are not limited to risks of anesthesia, bleeding, infection, possible damage to bowel, bladder, or surrounding vasculature which could lead to additional surgery to evaluate any complications. Patient agrees to procedure and wishes to proceed. ACOG/uptodate references given for additional information regarding procedure.
[2024-10-13] MEDS: Midazolam 2 MG/2 ML Syringe IV (12:06)
[2024-10-13] MEDS: Lidocaine 1% (5 ml sdv) 5 ML Vial IV (12:09)
[2024-10-13] MEDS: Cefazolin 1 GM/5 ML Vial 2 GM IV (12:26)
[2024-10-13] MEDS: Silver Nitrate (BKC) 1 EACH (12:36)
--- NOTE | 2024-10-13 12:42 | OP.PCM_ITS ---
Problems Associated Problem List Diagnoses (1) Missed : Procedures Urinary/Genital 52xxx-59xxx: 32103 Trmt of incomplete Ab, any TM Operative Report (Standard) Operative Information Date of Procedure: 10/13/24 Pre-Operative Diagnosis: see problem list comments Post-Operative Diagnosis: same Surgery/Procedure Performed: suction dilation and curettage epidemiology investigator: No Type of Anesthesia: IV Sedation and Local RN Documented Start/Stop Times: Operation Date: 10/13/24 12:00 Case Time Into Pre-Op 10/13/24 10:17 Anesthesia Start 10/13/24 12:04 Into Room 10/13/24 12:04 Procedure Start 10/13/24 12:28 Procedure End 10/13/24 12:40 Procedure Start Time: 12: Procedure Stop Time: 12:40 Select all DRAINS/GRAFTS/IMPLANTS that apply: None Estimated Blood Loss: 250 Specimen collected: Yes Description of specimen(s) removed: retained POC Description of surgery: Patient was taken to the operating room and placed under MAC local anesthesia. She was prepped and draped in the normal sterile fashion the dorsal lithotomy position. Bladder was drained of clear urine and anterior lip of the cervix was grasped and the uterus sounded to 10 cm. Cervix was progressively dilated to allow passage of a 10mm suction curette. Progressive passes were made removing the retained products of conception without complication. Sharp curettage confirmed complete removal of the retained products and stitch placed on anterior lip of cervix for hemostasis. All instruments were removed from the vagina and excellent hemostasis was noted and the patient was taken to recovery in stable condition. Surgical Findings: missed ab 10 weeks measuring 8 Complications Complications: No
--- NOTE | 2024-10-13 12:44 | DCINST_ITS ---
Discharge Instructions DC O2, CPAP, BIPAP needs Home O2 Discharge instructions: No Dressing / Incision Discharge Activity: Return to Normal Activity, May Shower and May Take a Tub Bath (after 1 week) May resume sexual activity in: 1-2 weeks Weight Bearing Status: Weight bearing as tolerated Lifting Restrictions: none Dressing / Incision Call your doctor if you observe: Fever of 101 or Higher, Using more than 1 pad per hour, Shortness of breath and Uncontrolled pain Follow Up Care Please Follow Up With: Cintia Donovan MD When: Call [phone] to schedule appointment. Test Results: Test results from this visit will be discussed in further detail at your follow- up appointment, if applicable. Discharge Plan Admission Attending Provider: Cintia Donovan Primary Care Provider: IKE BENAVIDEZ Instructions Print Language: Romanian Discharge Orders/Prescriptions Prescriptions: No Action PNV no.[id number] 400 mcg-35 mg- 25 mg-5 mg tablet,chewable PO sertraline [Zoloft] 25 mg tablet 25 mg PO DAILY Qty: 30 3RF progesterone micronized [Prometrium] 100 mg capsule 200 mg vaginal QHS Qty: 60 2RF Referrals / Follow Up: IKE BENAVIDEZ CRNP [Primary Care Provider] - Disposition Disposition (needs filled in before D/C Order can be placed): Home, Self Care
--- NOTE | 2024-10-13 12:53 | PCM.POST.ANE ---
Anesthesia: Postop Eval I Current Vital Signs Temperature: 97.4 F Pulse Rate: 70 Blood Pressure: 107/58 Respiratory Rate: 16 Pulse Ox: 97 Oxygen Delivery Method: Room Air Assessment Airway patent: Yes Spontaneous unlabored respirations: Yes Mental status: Awake nausea: No Vomiting: No Anesthesia Complication: No Fluid Hydration Crystalloid volume administer (ml): 700 Total IV fluid infused: 700 Progress Note Anesthesia document: Postop Eval 1 completed: Yes
--- NOTE | 2024-10-13 14:46 | POSTOPAN2_ITS ---
Anesthesia Postop Eval I Sum Postop Eval Completion status Anesthesia document: Postop Eval 1 completed: Yes Anesthesia Postop Eval I Summary Anesthesia Postop Eval I Summary: Anesthesia Postop Eval I: Assessment Summary Airway patent Yes 10/13/24 12:54 CLINICAL PHARMACY SPECIALIST.JDEF Spontaneous unlabored Yes 10/13/24 12:54 CLINICAL PHARMACY SPECIALIST.JDEF respirations Mental status Awake 10/13/24 12:54 CLINICAL PHARMACY SPECIALIST.JDEF nausea No 10/13/24 12:54 CLINICAL PHARMACY SPECIALIST.JDEF Vomiting No 10/13/24 12:54 CLINICAL PHARMACY SPECIALIST.JDEF Anesthesia Postop Eval I: Fluid Summary Crystalloid volume administer 700 10/13/24 12:54 CLINICAL PHARMACY SPECIALIST.JDEF (ml) Colloids volume administered ( ml) Blood Product volume administered (ml) Total IV fluid infused 700 10/13/24 12:54 CLINICAL PHARMACY SPECIALIST.JDEF Anesthesia Postop Eval I: Summary Notes Anesthesia Complication No 10/13/24 12:54 CLINICAL PHARMACY SPECIALIST.JDEF Anesthesia Complication Comment: Post-operative progress note Anesthesia: Postop Eval II Evaluation Mental status: Awake and Calm Pain Level: 0 nausea: No Vomiting: No Complications Anesthesia Complication: No
--- NOTE | 2024-10-13 14:46 | PCM.POSTANE2 ---
Anesthesia Postop Eval I Sum Postop Eval Completion status Anesthesia document: Postop Eval 1 completed: Yes Anesthesia Postop Eval I Summary Anesthesia Postop Eval I Summary: Anesthesia Postop Eval I: Assessment Summary Airway patent Yes 10/13/24 12:54 COMMERCIAL REAL ESTATE LENDER.JDEF Spontaneous unlabored Yes 10/13/24 12:54 COMMERCIAL REAL ESTATE LENDER.JDEF respirations Mental status Awake 10/13/24 12:54 COMMERCIAL REAL ESTATE LENDER.JDEF nausea No 10/13/24 12:54 COMMERCIAL REAL ESTATE LENDER.JDEF Vomiting No 10/13/24 12:54 COMMERCIAL REAL ESTATE LENDER.JDEF Anesthesia Postop Eval I: Fluid Summary Crystalloid volume administer 700 10/13/24 12:54 COMMERCIAL REAL ESTATE LENDER.JDEF (ml) Colloids volume administered ( ml) Blood Product volume administered (ml) Total IV fluid infused 700 10/13/24 12:54 COMMERCIAL REAL ESTATE LENDER.JDEF Anesthesia Postop Eval I: Summary Notes Anesthesia Complication No 10/13/24 12:54 COMMERCIAL REAL ESTATE LENDER.JDEF Anesthesia Complication Comment: Post-operative progress note Anesthesia: Postop Eval II Evaluation Mental status: Awake and Calm Pain Level: 0 nausea: No Vomiting: No Complications Anesthesia Complication: No
== END 2024-10-13 13:54 | disposition home or self-care (01) ==
LOC: SDC 10:14 → ACINP 10:17
PROVIDERS: PCP Nurse Practitioner Adult Health; Referring Provider Obstetrics & Gynecology; Visit Provider Obstetrics & Gynecology
PROC: (CPT 59820; principal; 2024-10-13 11:45)
DX: O02.1 Missed abortion (principal); I10 Essential (primary) hypertension
CPT/HCPCS: 59820; 01965; 85027; 86850; 86900; 86901; 88305; J2405